=== PATIENT | male | born 1950 | race Caucasian/White ===

== ENCOUNTER 2018-09-25 11:11 | Day surgery (SDC) | payer OTHER ==
[~2018-09-25 11:11] MED LIST: Buffered Lidocaine 1% SYRIN* 1 ML/SYRINGE INTRADERM ONE; Famotidine IV* 10 MG/ML 2 ML (20 mg) IV ONE; Lactated Ringers 1000 ML Bag* 1,000 ML IV SCH
[2018-09-25] MEDS ORDERED: Famotidine IV* 10 MG/ML 2 ML (20 mg) ONE (11:29)
[2018-09-25] MEDS ORDERED: Metoprolol Tartrate IV* 1 MG/ML 5 ML VIAL ONE ×2 (12:07→12:46)
[2018-09-25] MEDS ORDERED: Midazolam* 1 MG/ML 5 ML VIAL (5 MG) ONE (12:18)
[2018-09-25] MEDS ORDERED: Propofol* 10 MG/ML 20 ML BTL ONE (12:18)
[2018-09-25] MEDS ORDERED: Lidocaine 2% MPF* 2 ML VIAL ONE (12:18)
[2018-09-25] MEDS ORDERED: Cisatracurium* 2 MG/ML MDV 5 ML ONE (12:18)
[2018-09-25] MEDS ORDERED: fentaNYL* 50 MCG/ML 2 ML VIAL (100 MCG VIAL) ONE (12:18)
[2018-09-25] MEDS ORDERED: Ondansetron INJ* 2 MG/ML VIAL ONE (12:18)
[2018-09-25] MEDS ORDERED: Dexamethasone IV* 4 MG/ML 1 ML (4 MG) ONE (12:18)
[2018-09-25] MEDS ORDERED: EPINEPHRINE 1 MG/ML 1 ML VIAL ONE (12:52)
[2018-09-25] MEDS ORDERED: Ondansetron INJ* 2 MG/ML VIAL IV PRN (13:02)
[2018-09-25] MEDS ORDERED: Naloxone* 0.4 MG/ML 1 ML VIAL IV PRN (13:02)
[2018-09-25] MEDS ORDERED: fentaNYL* 50 MCG/ML 2 ML VIAL (100 MCG VIAL) IV PRN (13:02)
[2018-09-25] MEDS ORDERED: VASOPRESSIN 20 UNITS/ML 1 ML VIAL ONE (13:28)
[2018-09-25] MEDS ORDERED: Neostigmine Methylsulfate* 1 MG/ML 10 ML VIAL (1 mg/ml) ONE (13:38)
[2018-09-25] MEDS ORDERED: Glycopyrrolate IV* 0.2 MG/ML 1 ML VIAL ONE (13:38)
--- NOTE | 2018-09-25 15:02 | OP ---
OPERATIVE REPORT: DATE OF OPERATION: 09/25/18 DATE OF : 54 SURGEON: Stevo Angeles MD SECTION REPAIRER: Dr. Salmeron; he did the FNA. ANESTHESIOLOGIST: Dr. Rosales. ANESTHESIA: General. PRE-OP DIAGNOSIS: Right neck mass. 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 OPERATIVE PROCEDURE: Direct laryngoscopy with biopsies and FNA right neck mass. ESTIMATED BLOOD LOSS: Less than 10 cc. INDICATIONS: This is a 68-year-old male who presented to the office with a right neck mass, which wa s concerning for malignancy. Prior to my evaluation, the patient had had a CT scan of the neck, whic h revealed large right neck mass and some pharyngeal asymmetry, although nothing definitive to indica te a specific source. Fiberoptic laryngoscopy in the office demonstrated fullness of the right tongu e base without ulceration. The decision was made to bring the patient to the operating room for dire ct laryngoscopy with biopsies and fine needle aspiration of the right neck mass. DESCRIPTION OF PROCEDURE: On 09/25/18, the patient was brought to the operating room. General anest hesia was induced and an oral endotracheal tube was placed utilizing the GlideScope. The table was t urned and a time-out was performed. The pathologist, Dr. Salmeron then prepped the right neck with alcohol, made 2 passes to perform fine needle aspiration. He determined that the specimen was adequ ate for diagnostic purposes. At this point, I took over. I used a combination of laryngoscopes incl uding a sliding Marcos and Brigida laryngoscope to evaluate the laryngopharynx. The only notable f eature was some fullness at the right tongue base. With manual palpation, this area was quite firm a s well. Multiple biopsies were taken of this region with an upcut forceps. There was minimal bleedi ng, which was controlled with pledgets soaked with epinephrine. After the biopsy, the patient was re turned to the care of the anesthesiologist. He was extubated and delivered to the PACU in a stable c ondition. [id number]/[facility] #: [id number]
[2018-09-25 15:13] VITALS: BP 120/98
== END 2018-09-25 15:18 | disposition home or self-care (01) ==
LOC: OR 11:11
PROVIDERS: ATTEND Otolaryngology
DX: D10.1 Benign neoplasm of tongue (principal); R22.1 Localized swelling, mass and lump, neck; C76.0 Malignant neoplasm of head, face and neck; I48.91 Unspecified atrial fibrillation; I10 Essential (primary) hypertension; F41.8 Other specified anxiety disorders
CPT/HCPCS: 10021; 88172; 88173; 88305; 88342; J1100; J2250; J2405; J2704; J2710; J3010; J3490

== ENCOUNTER 2018-11-26 16:09 | Inpatient (IN) | payer OTHER ==
--- OUTSIDE RECORDS SUMMARY | 2018-11-26 18:21 | XMS REPORT | Continuity of Care Document ---
:1950 External Reference #:[id number] Author Name Ayala Browne MD Address [address] [place] [address] Care Team Providers Name Role Phone Jeff Brody MD Care Team Information Bioinformatics Assistant Unavailable Payers Date Identification Numbers Payment Provider Subscriber Expires: 2010 Policy Number: [id number] [facility] Pal Florez PayID: [id number] [address] [place] [address] Policy Number: [id number] [facility] Pal Florez PayID: [id number] [address] [place] [address] Social History Type Date Description Comments Sex Unknown Tobacco Use Start: Unknown Patient has never smoked Smoking Status Reviewed: 11/12/18 Patient has never smoked Allergies, Adverse Reactions, Alerts Description No Known Drug Allergies Medications Active Medications SIG Qnty Indications Ordering Provider Date Diltiazem Hydrochloride Unknown ER CP24 Pradaxa take 1 capsule by Unknown 150mg Capsules mouth 2 times a day Vital Signs Date Vital Result Comment 11/12/2018 11:20am Height 71 inches 5'11" Weight 222.00 lb BP Systolic 151 mmHg BP Diastolic 96 mmHg Heart Rate 70 /min BMI (Body Mass Index) 31.0 kg/m2 Results Test Date Facility Test Result H/L Range Note Basic Metabolic Panel 11/12/2012 [facility] Sodium 134 mmol/L 133-145 Potassium 3.9 mmol/L 3.5-5.0 Chloride 103 mmol/L 101-111 Co2 Carbon Dioxide 23.0 mmol/L 22-32 Anion Gap 8.0 mmol/L 2-11 Glucose 101 mg/dL High 70-100 Blood Urea Nitrogen 9 mg/dL 6-24 Creatinine 0.90 mg/dL 0.50-1.40 BUN/Creatinine Ratio 10.0 8-20 Calcium 9.1 mg/dL 8.1-9.9 Egfr Non- 86.1 >60 Egfr 110.7 >60 1 Laboratory test finding 11/12/2012 [facility] Magnesium 2.1 mg/dL 1.7-2.6 1 Because ethnic data is not always readily available, this report includes an eGFR for both -Americans and non- Americans. The National Kidney Disease Education Program (NKDEP) does not endorse the use of the MDRD equation for patients that are not between the ages of 18 and 70, are , have extremes of body size, muscle mass, or nutritional status, or are non- or non-. According to the National Kidney Foundation, irrespective of diagnosis, the stage of the disease is based on the level of kidney function: Stage Description GFR(mL/min/1.73 m(2)) 1 Kidney damage with normal or decreased GFR 90 2 Kidney damage with mild decrease in GFR 60-89 3 Moderate decrease in GFR 30-59 4 Severe decrease in GFR 15-29 5 Kidney failure <15 (or dialysis) Procedures Date Code Description Status 11/12/2012 62304 Colonoscopy Completed 09/12/2005 [id number] Colonoscopy Completed
--- OUTSIDE RECORDS SUMMARY | 2018-11-26 18:21 | XMS REPORT | Continuity of Care Document ---
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 Onset: 09/20/2018 Localized swelling, mass and lump, neck Juan Hilliard M.D. Onset: 2018 Lymphadenopathy Juan Hilliard M.D. Onset: 03/14/2016 Paroxysmal atrial fibrillation Juan Hilliard M.D. Onset: 03/14/2016 Essential hypertension Juan Hilliard M.D. Onset: 05/07/2015 Overweight Juan Hilliard M.D. Onset: 06/09/2013 Disorder of thyroid gland Juan Hilliard M.D. Onset: 04/08/2013 Atrial fibrillation Vikram Landeros M.D. Onset: 11/20/2012 Impacted cerumen Juan Hilliard M.D. Onset: 09/30/2012 Non-suppurative otitis media Vikram Landeros M.D. Onset: 04/24/2012 Hyperlipidemia Juan Hilliard M.D. Onset: 04/02/2012 Adult health examination Juan Hilliard M.D. Onset: 04/02/2012 Headache Juan Hilliard M.D. Onset: 03/17/2011 Allergic rhinitis Juan Hilliard M.D. Onset: 11/07/2010 Benign prostatic hypertrophy without Juan Hilliard M.D. Onset: 10/12/2009 outflow obstruction Benign essential hypertension Juan Hilliard M.D. Onset: 10/12/2009 Family History Date Family Member(s) Observation Comments Father due to Cancer () - AGE 60 Mother due to Heart Disease () - AGE 80 Mother due to COPD () First Brother Smoker First Sister Colon Polyps Social History Type Date Description Comments Sex Unknown Marital Status Patient is single Living Situation Patient lives alone Diet Diet is healthy and well balanced Tobacco Use Start: Unknown Nonsmoker ETOH Use Denies alcohol use Tobacco Use Start: Unknown Patient has never smoked Smoking Status Reviewed: 11/23/18 Patient has never smoked Exercise Type/Frequency Exercises sporadically Current Allergies, Adverse Reactions, Alerts Description No Known Drug Allergies Medications Active Medications SIG Qnty Indications Ordering Provider Date Lovenox Inject One Dose 8ml I48.1 Juan Hilliard, 09/20/2018 80mg/0.8ML bid M.D. Solution Pradaxa Take 1 Capsule 180caps Juan Hilliard, 02/07/2013 150mg Capsules By Mouth Twice M.D. Daily Diltiazem HCL ER Take 1 Capsule 90caps Juan Hilliard, 01/30/2013 Coated Beads By Mouth Every M.D. 240mg Caps Day ER 24HR History Medications Trazodone HCL 1-2 tablet at 60tabs Juan Hilliard, 09/05/2018 - 50mg bedtime as needed M.D. 09/20/2018 Tablets for sleep Diltiazem HCL ER Beads 1 by mouth every 30caps Juan Hilliard, 2016 - day M.D. 11/14/2016 360mg Caps ER 24HR Diltiazem CD 1 by mouth every 90caps I48.0 Juan Hilliard, 11/14/2016 - 120mg Caps day for blood M.D. 01/30/2018 ER 24HR pressure and heart rate Diltiazem CD 1 po qd 30caps 427.31 Juan Hilliard, 01/13/2013 - 180mg Caps M.D. 01/13/2013 ER 24HR Cardizem CD 2 po qd 30caps 427.31 Juan Hilliard, 01/13/2013 - 120mg Caps ER M.D. 01/30/2013 24HR Warfarin Sodium take 1 tablet 45tabs 427.31 Juan Hilliard, 01/13/2013 - 5mg once daily or as M.D. 02/07/2013 Tablets directed Amoxicillin bid x 8 days 16caps Vikram Ch 04/24/2012 - 500mg Quan Landeros 09/30/2012 Capsules Levocetirizine take 1 tablet 30tabs Juan Hilliard, 03/17/2011 - Dihydrochloride daily prn M.D. 04/02/2012 5mg Tablets Fluticasone Propionate 1-2 sprays each 1Bottle Juan Hilliard, 2010 - nostril daily prn M.D. 04/02/2012 50mcg/Act Suspension for allergies Lisinopril Take 1 Tablet 90tabs Juan Hilliard, 04/11/2010 - 5mg Tablets Daily M.D. 11/20/2012 Cortisporin Otic Susp 1 gtt every 6 1Bpriscila murillo 11/24/2006 - hours To Tyree MirzaDChrist 10/12/2009 Trazadone 1-2 po q hs prn 30units Juan Hilliard, 08/11/2005 - 50mg for sleep M.D. 10/12/2009 Duratuss GP 1 PO Q 12 HR prn 20units Juan Hilliard, 08/09/2001 - Head Congestion M.D. 08/11/2005 Zithromax 2 Tabs Day 1 6units Juan Hilliard, 08/09/2001 - 250mg M.D. 08/11/2005 1 Tab qd Days 2 Thru 5 Fiorinal 1-2 PO Q4-6hs prn 3O Juan Hilliard, 08/09/2001 - Headache M.D. 08/11/2005 Claritin 1 po qd Samples Unknown - 10mg Tablets 03/17/2011 Diazepam 1 po qd Unknown - 5mg Tablets 11/20/2012 Aspirin 1 po qd Unknown - 81mg Tablets 04/08/2013 DR Lindsay PALMA 1 po qd 30caps Vikram J. - 120mg Caps TIMA Landeros M.D. 01/13/2013 24HR Immunizations CPT Code Status Date Vaccine Lot # [id number] Given 03/14/2016 Tdap Tetanus, W Pertussis [id number] Given 03/14/2016 Influenza Vac, Quadrivalent, Slit Virus, Im [id number] Given 05/07/2015 Influenza Vac, Quadrivalent, Slit Virus, Im [id number] Vital Signs Date Vital Result Comment 11/23/2018 9:05am BP Systolic 112 mmHg BP Diastolic 80 mmHg Heart Rate 84 /min Body Temperature 97.2 F Respiratory Rate 17 /min Height 69.75 inches 5'9.75" measured 12/14/17 Weight 215.00 lb BMI (Body Mass Index) 31.1 kg/m2 09/20/2018 4:27pm BP Systolic 120 mmHg BP Diastolic 80 mmHg Heart Rate 60 /min Body Temperature 97.9 F Respiratory Rate 16 /min Height 69.75 inches 5'9.75" measured 12/14/17 Weight 234.00 lb BMI (Body Mass Index) 33.8 kg/m2 09/05/2018 1:59pm BP Systolic 138 mmHg BP Diastolic 80 mmHg Heart Rate 78 /min Body Temperature 977.0 F Respiratory Rate 16 /min Height 69.75 inches 5'9.75" measured 12/14/17 Weight 234.25 lb BMI (Body Mass Index) 33.8 kg/m2 01/31/2018 9:12am BP Systolic 148 mmHg BP Diastolic 78 mmHg Heart Rate 84 /min Body Temperature 98.1 F Respiratory Rate 16 /min Height 69.75 inches 5'9.75" measured 12/14/17 Weight 231.38 lb BMI (Body Mass Index) 33.4 kg/m2 12/14/2017 8:17am BP Systolic 128 mmHg BP Diastolic 88 mmHg Heart Rate 72 /min Body Temperature 97.3 F Respiratory Rate 16 /min Height 69.75 inches 5'9.75" measured 12/14/17 Weight 225.25 lb BMI (Body Mass Index) 32.5 kg/m2 Right Visual Acuity Distance 20/40 Left Visual Acuity Distance 20/25 08/14/2017 2:00pm BP Systolic 144 mmHg BP Diastolic 84 mmHg Heart Rate 96 /min Body Temperature 96.8 F Respiratory Rate 16 /min Height 69.75 inches 5'9.75" meassured 03/14/16 Weight 228.25 lb BMI (Body Mass Index) 33.0 kg/m2 06/23/2017 9:10am BP Systolic 140 mmHg BP Diastolic 82 mmHg Heart Rate 84 /min Body Temperature 98.3 F Respiratory Rate 16 /min Height 69.75 inches 5'9.75" meassured 03/14/16 Weight 226.00 lb BMI (Body Mass Index) 32.7 kg/m2 03/12/2017 2:39pm BP Systolic 148 mmHg BP Diastolic 88 mmHg Heart Rate 78 /min Body Temperature 97.9 F Respiratory Rate 16 /min Height 69.75 inches 5'9.75" meassured 03/14/16 Weight 226.38 lb BMI (Body Mass Index) 32.7 kg/m2 12/15/2016 9:20am BP Systolic 136 mmHg BP Diastolic 76 mmHg Heart Rate 84 /min Body Temperature 97.5 F Respiratory Rate 16 /min Height 69.75 inches 5'9.75" meassured 03/14/16 Weight 222.12 lb BMI (Body Mass Index) 32.1 kg/m2 11/14/2016 3:03pm BP Systolic 162 mmHg BP Diastolic 88 mmHg Heart Rate 110 /min irr Body Temperature 97.5 F Height 69.75 inches 5'9.75" meassured 03/14/16 Weight 223.00 lb BMI (Body Mass Index) 32.2 kg/m2 07/29/2016 11:22am BP Systolic 136 mmHg BP Diastolic 80 mmHg Heart Rate 72 /min Body Temperature 97.9 F Respiratory Rate 16 /min Height 69.75 inches 5'9.75" meassured 03/14/16 Weight 223.50 lb BMI (Body Mass Index) 32.3 kg/m2 03/14/2016 11:38am BP Systolic 148 mmHg BP Diastolic 76 mmHg Heart Rate 74 /min Body Temperature 97.6 F Respiratory Rate 16 /min Height 69.75 inches 5'9.75" meassured 03/14/16 Weight 214.25 lb BMI (Body Mass Index) 31.0 kg/m2 Right Visual Acuity Distance 20/25 Left Visual Acuity Distance 20/25 11/08/2015 4:03pm BP Systolic 130 mmHg BP Diastolic 70 mmHg Heart Rate 80 /min Body Temperature 98.0 F Respiratory Rate 12 /min Height 70 inches 5'10" measured 10/29/14 Weight 208.00 lb BMI (Body Mass Index) 29.8 kg/m2 05/07/2015 8:02am BP Systolic 128 mmHg BP Diastolic 80 mmHg Heart Rate 66 /min Body Temperature 96.4 F Respiratory Rate 16 /min Height 70 inches 5'10" measured 10/29/14 Weight 218.38 lb BMI (Body Mass Index) 31.3 kg/m2 10/29/2014 3:37pm BP Systolic 140 mmHg BP Diastolic 80 mmHg Heart Rate 84 /min Body Temperature 98.8 F Respiratory Rate 16 /min Height 70 inches 5'10" measured 10/29/14 Weight 209.25 lb BMI (Body Mass Index) 30.0 kg/m2 Right Visual Acuity Distance 20/200 Left Visual Acuity Distance 20/30 12/08/2013 8:08am BP Systolic 130 mmHg BP Diastolic 80 mmHg Heart Rate 68 /min Body Temperature 96.4 F Respiratory Rate 16 /min Height 70.5 inches 5'10.50" Weight 217.38 lb BMI (Body Mass Index) 30.7 kg/m2 09/08/2013 8:36am BP Systolic 144 mmHg BP Diastolic 82 mmHg Heart Rate 72 /min Body Temperature 97.7 F Respiratory Rate 16 /min Height 70.5 inches 5'10.50" Weight 220.00 lb BMI (Body Mass Index) 31.1 kg/m2 06/09/2013 8:06am BP Systolic 148 mmHg BP Diastolic 84 mmHg Heart Rate 68 /min Body Temperature 97.5 F Respiratory Rate 16 /min Height 70.5 inches 5'10.50" Weight 224.12 lb BMI (Body Mass Index) 31.7 kg/m2 04/08/2013 12:09pm BP Systolic 140 mmHg BP Diastolic 78 mmHg Heart Rate 72 /min Body Temperature 97.8 F Respiratory Rate 14 /min Height 70.5 inches 5'10.50" Weight 221.50 lb BMI (Body Mass Index) 31.3 kg/m2 Right Visual Acuity Distance 20/40 Left Visual Acuity Distance 20/40 01/13/2013 7:54am BP Systolic 108 mmHg BP Diastolic 72 mmHg Heart Rate 72 /min Body Temperature 97.6 F Respiratory Rate 16 /min Height 70.5 inches 5'10.50" Weight 223.38 lb BMI (Body Mass Index) 31.6 kg/m2 11/20/2012 9:20am BP Systolic 138 mmHg BP Diastolic 90 mmHg Heart Rate 66 /min Body Temperature 97.1 F Respiratory Rate 16 /min Height 70.5 inches 5'10.50" Weight 220.00 lb BMI (Body Mass Index) 31.1 kg/m2 10/07/2012 11:59am BP Systolic 110 mmHg BP Diastolic 70 mmHg Heart Rate 80 /min Body Temperature 98.1 F Respiratory Rate 17 /min Height 70.5 inches 5'10.50" Weight 222.00 lb BMI (Body Mass Index) 31.4 kg/m2 09/30/2012 8:01am BP Systolic 128 mmHg BP Diastolic 82 mmHg Heart Rate 88 /min Body Temperature 96.0 F Height 70.5 inches 5'10.50" Weight 225.00 lb BMI (Body Mass Index) 31.8 kg/m2 04/24/2012 1:04pm BP Systolic 140 mmHg BP Diastolic 90 mmHg Heart Rate 76 /min Body Temperature 95.0 F Height 70.5 inches 5'10.50" Weight 219.00 lb BMI (Body Mass Index) 31.0 kg/m2 04/02/2012 10:23am BP Systolic 160 mmHg BP Diastolic 86 mmHg Heart Rate 76 /min Body Temperature 96.3 F Height 70.5 inches 5'10.50" Weight 219.00 lb BMI (Body Mass Index) 31.0 kg/m2 07/21/2011 8:09am BP Systolic 150 mmHg BP Diastolic 100 mmHg Heart Rate 80 /min Height 70.5 inches 5'10.50" Weight 220.00 lb BMI (Body Mass Index) 31.1 kg/m2 03/17/2011 8:09am BP Systolic 142 mmHg BP Diastolic 98 mmHg Heart Rate 72 /min Body Temperature 97.1 F Height 70.5 inches 5'10.50" Weight 222.00 lb BMI (Body Mass Index) 31.4 kg/m2 11/07/2010 8:39am BP Systolic 110 mmHg BP Diastolic 80 mmHg Heart Rate 76 /min Height 70.5 inches 5'10.50" Weight 215.00 lb BMI (Body Mass Index) 30.4 kg/m2 10/20/2010 10:29am BP Systolic 120 mmHg BP Diastolic 80 mmHg Heart Rate 84 /min Body Temperature 98.0 F Height 70.5 inches 5'10.50" Weight 218.00 lb BMI (Body Mass Index) 30.8 kg/m2 07/15/2010 8:13am BP Systolic 130 mmHg BP Diastolic 90 mmHg Heart Rate 68 /min Respiratory Rate 15 /min Height 70.5 inches 5'10.50" Weight 216.00 lb BMI (Body Mass Index) 30.6 kg/m2 04/11/2010 8:16am BP Systolic 158 mmHg BP Diastolic 90 mmHg Heart Rate 72 /min Height 70.5 inches 5'10.50" Weight 216.00 lb BMI (Body Mass Index) 30.6 kg/m2 01/10/2010 8:33am BP Systolic 150 mmHg BP Diastolic 92 mmHg Heart Rate 80 /min Body Temperature 97.6 F Height 70.5 inches 5'10.50" Weight 224.00 lb BMI (Body Mass Index) 31.7 kg/m2 10/12/2009 7:13pm BP Systolic 180 mmHg BP Diastolic 110 mmHg Heart Rate 84 /min Body Temperature 98.0 F Height 70.5 inches 5'10.50" Weight 227.00 lb BMI (Body Mass Index) 32.1 kg/m2 11/24/2006 10:16am BP Systolic 154 mmHg BP Diastolic 84 mmHg Heart Rate 78 /min Body Temperature 98.6 F Height 70.5 inches 5'10.50" Weight 226.00 lb BMI (Body Mass Index) 32.0 kg/m2 10/06/2005 4:47pm BP Systolic 160 mmHg BP Diastolic 92 mmHg Heart Rate 96 /min Height 70.5 inches 5'10.50" Weight 219.00 lb BMI (Body Mass Index) 31.0 kg/m2 08/11/2005 3:20pm BP Systolic 168 mmHg BP Diastolic 100 mmHg Heart Rate 88 /min Respiratory Rate 20 /min Height 70.5 inches 5'10.50" Weight 217.00 lb BMI (Body Mass Index) 30.7 kg/m2 06/05/2005 1:23pm BP Systolic 132 mmHg BP Diastolic 88 mmHg Heart Rate 80 /min Respiratory Rate 16 /min Height 70.5 inches 5'10.50" Weight 218.00 lb BMI (Body Mass Index) 30.8 kg/m2 08/09/2001 4:05pm BP Systolic 144 mmHg BP Diastolic 72 mmHg Body Temperature 99.6 F Height 70.5 inches 5'10.50" Weight 219.00 lb BMI (Body Mass Index) 31.4 kg/m2 09/13/1999 10:32am BP Systolic 134 mmHg BP Diastolic 80 mmHg Heart Rate 72 /min Reg Body Temperature 96.9 F Height 70.5 inches 5'10.50" Weight 214.00 lb BMI (Body Mass Index) 30.7 kg/m2 05/31/1999 9:39am BP Systolic 130 mmHg LA SM Cuff BP Diastolic 92 mmHg LA SM Cuff Height 70.5 inches 5'10.50" Weight 220.00 lb BMI (Body Mass Index) 31.6 kg/m2 Results Test Date Facility Test Result H/L Range Note CBC Auto Diff 11/11/2018 [facility] White Blood Count 8.8 10^3/uL N 3.5-10.8 Red Blood Count 4.23 10^6/uL N 4.18-5.48 Hemoglobin 14.2 g/dL N 14.0-18.0 Hematocrit 40 % Low 42-52 Mean Corpuscular Volume 94 fL N 80-94 Mean Corpuscular Hemoglobin 34 pg High 27-31 Mean Corpuscular HGB Conc 36 g/dL N 31-36 Red Cell Distribution Width 13 % N 10-15 Platelet Count 277 10^3/uL N 150-450 Mean Platelet Volume 8.2 fL N 7.4-10.4 Abs Neutrophils 6.9 10^3/uL N 1.5-7.7 Abs Lymphocytes 0.8 10^3/uL Low 1.0-4.8 Abs Monocytes 0.6 10^3/uL N 0-0.8 Abs Eosinophils 0.5 10^3/uL N 0-0.6 Abs Basophils 0.1 10^3/uL N 0-0.2 Abs Nucleated RBC 0.0 10^3/uL Granulocyte % 77.9 % Lymphocyte % 9.0 % Monocyte % 7.2 % Eosinophil % 5.1 % Basophil % 0.8 % Nucleated Red Blood Cells % 0.2 Comp Metabolic Panel 11/11/2018 [facility] Sodium 138 mmol/L N 135-145 Potassium 4.1 mmol/L N 3.5-5.0 Chloride 103 mmol/L N 101-111 Co2 Carbon Dioxide 26 mmol/L N 22-32 Anion Gap 9 mmol/L N 2-11 Glucose 140 mg/dL High 70-100 Blood Urea Nitrogen 12 mg/dL N 6-24 Creatinine 0.91 mg/dL N 0.67-1.17 BUN/Creatinine Ratio 13.2 N 8-20 Calcium 9.4 mg/dL N 8.6-10.3 Total Protein 7.1 g/dL N 6.4-8.9 Albumin 4.2 g/dL N 3.2-5.2 Globulin 2.9 g/dL N 2-4 Albumin/Globulin Ratio 1.4 N 1-3 Total Bilirubin 0.50 mg/dL N 0.2-1.0 Alkaline Phosphatase 84 U/L N 34-104 Alt 21 U/L N 7-52 Ast 16 U/L N 13-39 Egfr Non- 83.4 >60 Egfr 100.9 >60 1 Laboratory test 11/11/2018 [facility] Magnesium 2.0 mg/dL N 1.9-2.7 finding Laboratory test 10/15/2018 [facility] Point of Care 134 mg/dL High 70-100 2 finding Glucose Comprehensive 09/05/2018 [facility]ma) Sodium 142 mEq/L 134-149 Metabolic Prof Potassium 4.2 mEq/L 3.6-5.5 Chloride 103 mEq/L 94-112 Carbon Dioxide 25 mEq/L 21-32 Glucose 128 mg/dL High 70-105 BUN 16 mg/dL 6-26 Creatinine 1.0 mg/dL 0.6-1.4 BUN/Creat Ratio 16.0 CALC 8.0-36.0 Calcium 9.6 mg/dL 8.6-10.2 Total Protein 7.5 g/dL 6.4-8.3 Albumin 4.9 g/dL 3.8-5.5 Globulin 2.6 g/dL 2.0-4.8 A/G Ratio 1.9 CALC 0.6-2.3 Alk. Phosphatase 79 U/L 22-95 Alt (SGPT) 36 U/L High 7-35 Ast (Sgot) 20 U/L 5-34 Total Bilirubin 0.3 mg/dL 0.2-1.3 GFR Non- >60 ml/min/1.73m^ >=60 GFR >60 ml/min/1.73m^ >=60 CBC Electronic a 09/05/2018 [facility](a) WBC 8.2 x10^3/UL 4.0- 10.0 RBC 4.69 x10^6/UL 3.93-6.00 HGB 15.6 g/dL 12.0-17.0 HCT 45 % 35-50 MCV 95.7 fL High 80.0-95.0 MCH 33.3 pg High 25.6-32.2 MCHC 34.7 g/dL 32.2-36.0 RDW-CV 12.6 % 11.6-14.4 PLT 316 x10^3/UL 163-400 MPV 10.3 fL 9.4-12.4 Rody# 5.99 x10^3/UL 1.56-6.13 Lymph# 1.25 x10^3/UL 1.18-3.74 Craven# 0.58 x10^3/UL 0.24-0.82 Eos # 0.3 x10^3/UL 0.0-0.5 Baso # 0.06 x10^3/UL 0.01-0.08 Rody% 73.3 % High 34.0-70.0 Lymph % 15.3 % Low 20.0-52.0 Craven% 7.1 % 5.0-12.0 Eos% 3.5 % 0.7-7.0 Baso% 0.7 % 0.1-1.2 Laboratory test 09/05/2018 [facility] C Reactive Protein 6.98 mg/L N <8.01 3 finding Ua - Non Micro 12/14/2017 [facility] Appearance CLEAR (a) (607)- - Color ORANGE Glucose, Urine ([facility]/CTX) NEG Bilirubin ICTO:NEG Ketones 15mg/dL # SP Grav 1.025 Blood NEG PH 5.5 Protein SSA:NEG Urobil 0.2 Nitrite NEG Leukocytes ([facility]ma/[facility]) NEG Laboratory test finding 12/12/2017 [facility]) PSA 0.3 ng/mL 0.0 -4.0 Comprehensive Metabolic 12/12/2017 [facility](a) Sodium 136 mEq/L 134-149 Prof Potassium 4.7 mEq/L 3.6-5.5 Chloride 102 mEq/L 94-112 Carbon Dioxide 24 mEq/L 21-32 Glucose 124 mg/dL High 70-105 BUN 11 mg/dL 6-26 Creatinine 1.0 mg/dL 0.6-1.4 BUN/Creat Ratio 11.0 CALC 8.0-36.0 Calcium 9.2 mg/dL 8.6-10.2 Total Protein 7.1 g/dL 6.4-8.3 Albumin 4.8 g/dL 3.8-5.5 Globulin 2.3 g/dL 2.0-4.8 A/G Ratio 2.1 CALC 0.6-2.3 Alk. Phosphatase 56 U/L 22-95 Alt (SGPT) 27 U/L 7-35 Ast (Sgot) 24 U/L 5-34 Total Bilirubin 0.7 mg/dL 0.2-1.3 GFR Non- >60 ml/min/1.73m^ >=60 GFR >60 ml/min/1.73m^ >=60 Lipid Profile 12/12/2017 [facility] Kumar([facility]) Cholesterol 189 mg/dL 120- 200 Triglycerides 103 mg/dL 30-200 HDL Cholesterol 59 mg/dL 30-70 LDL (Calculated) 109 CALC 0-129 VLDL Cholesterol 21 mg/dL 0-50 HDL Risk Factor 3.2 CALC 0.0-4.4 CBC Electronic a 12/12/2017 [facility] Kumar([facility]) WBC 7.8 x10^3/UL 4.0- 10.0 RBC 4.47 x10^6/UL 3.93-6.00 HGB 14.9 g/dL 12.0-17.0 HCT 43 % 35-50 MCV 96.0 fL High 80.0-95.0 MCH 33.3 pg High 25.6-32.2 MCHC 34.7 g/dL 32.2-36.0 RDW-CV 12.5 % 11.6-14.4 PLT 259 x10^3/UL 163-400 MPV 11.0 fL 9.4-12.4 Rody# 4.99 x10^3/UL 1.56-6.13 Lymph# 1.71 x10^3/UL 1.18-3.74 Craven# 0.61 x10^3/UL 0.24-0.82 Eos # 0.4 x10^3/UL 0.0-0.5 Baso # 0.06 x10^3/UL 0.01-0.08 Rody% 64.0 % 34.0-70.0 Lymph % 21.9 % 20.0-52.0 Craven% 7.8 % 5.0-12.0 Eos% 5.4 % 0.7-7.0 Baso% 0.8 % 0.1-1.2 CBC Electronic ([facility]) 03/12/2017 [facility] WBC 8.0 3.6-9.6 (607)- - RBC 4.40 3.90-5.70 Hemoglobin ([facility]ma/[facility]/CTX) 14.8 g/dL 12.1 - 17.2 Hematocrit (a/CMC/CTX) 42.8 % 36.1 - 50.3 Platelets 241 10^3/ul 150-400 Lymph% 25.1 % 17.0-48.0 Mixed% 5.0 Neutrophils % 69.9 Mean Corpuscular Vol 97 82.2-97.4 Mean Corpuscular Hemoglobin 33.8 High 27.6-33.3 Mean Corpuscular Hemo Concen 34.7 32.0-36.0 RDW 13.7 11.6-13.7 Mean Platelet Volume 7.5 5.5-11.0 Comprehensive Metabolic 03/12/2017 [facility] Kumar([facility]) Sodium 142 mEq/L 134-149 Prof Potassium 4.3 mEq/L 3.6-5.5 Chloride 107 mEq/L 94-112 Carbon Dioxide 24 mEq/L 21-32 Glucose 111 mg/dL High 70-105 BUN 11 mg/dL 6-26 Creatinine 1.0 mg/dL 0.6-1.4 BUN/Creat Ratio 11.0 CALC 8.0-36.0 Calcium 9.1 mg/dL 8.6-10.2 Total Protein 6.9 g/dL 6.4-8.3 Albumin 4.5 g/dL 3.8-5.5 Globulin 2.4 g/dL 2.0-4.8 A/G Ratio 1.9 CALC 0.6-2.3 Alk. Phosphatase 57 U/L 22-95 Alt (SGPT) 18 U/L 7-35 Ast (Sgot) 18 U/L 5-34 Total Bilirubin 0.5 mg/dL 0.2-1.3 GFR Non- >60 ml/min/1.73m^ >=60 GFR >60 ml/min/1.73m^ >=60 Ua - Non Micro (Fma) 03/14/2016 [facility] Appearance clear (607)- - Color yellow Glucose, Urine ([facility]/CTX) neg Bilirubin neg Ketones trace SP Grav 1.020 Blood neg PH 5.5 Protein neg Urobil 0.2 Nitrite neg Leukocytes ([facility]) neg Laboratory test finding 10/27/2015 [facility]) PSA 0.3 ng/mL 0.0 -4.0 4 Comprehensive Metabolic 10/27/2015 [facility]) Sodium 140 mEq/L 134-149 Prof Potassium 5.2 mEq/L 3.6-5.5 Chloride 100 mEq/L 94-112 Carbon Dioxide 29 mEq/L 21-32 Glucose 120 mg/dL High 70-105 5 BUN 11 mg/dL 6-26 Creatinine 0.9 mg/dL 0.6-1.4 BUN/Creat Ratio 12.2 CALC 8.0-36.0 Calcium 9.3 mg/dL 8.6-10.2 Total Protein 6.9 g/dL 6.4-8.3 Albumin 4.6 g/dL 3.8-5.5 Globulin 2.3 g/dL 2.0-4.8 A/G Ratio 2.0 CALC 0.6-2.3 Alk. Phosphatase 61 U/L 22-95 Alt (SGPT) 22 U/L 7-35 Ast (Sgot) 20 U/L 5-34 Total Bilirubin 0.6 mg/dL 0.2-1.3 GFR Non- >60 ml/min/1.73m^ >=60 GFR >60 ml/min/1.73m^ >=60 Lipid Profile 10/27/2015 [facility]) Cholesterol 195 mg/dL 120- 200 Triglycerides 63 mg/dL 30-200 HDL Cholesterol 57 mg/dL 30-70 LDL (Calculated) 125 CALC 0-129 VLDL Cholesterol 13 mg/dL 0-50 HDL Risk Factor 3.4 CALC 0.0-4.4 Complete Blood Count 10/27/2015 [facility]) WBC 7.3 x10^3/UL 3.6 -9.6 RBC 4.76 x10^6/UL 3.90-5.70 HGB 15.9 g/dL 12.1-17.2 HCT 46 % 36-50 MCV 97.0 fL 82.2-97.4 MCH 33.3 pg 27.6-33.3 MCHC 34.3 g/dL 33.0-35.5 RDW 12.7 % 11.6-13.7 PLT 282 x10^3/UL 150-400 MPV 8.3 fL 7.4-10.4 Gran # 5.0 x10^3/UL 1.5-7.2 Lymph# 2.0 x10^3/UL 0.7-4.9 Craven# 0.3 x10^3/UL 0.1-0.9 Gran % 67.1 % 42.2-75.2 Lymph % 27.7 % 20.5-51.1 Craven% 5.2 % 1.7-9.3 Ua - Non Micro (Fma) 10/29/2014 [facility] Medicine Appearance clear (607)- - Color yellow Glucose, Urine ([facility]ma/[facility]/CTX) - Bilirubin - Ketones - SP Grav 1.015 Blood - PH 7.5 Protein - Urobil 1.0 Nitrite - Leukocytes (a/[facility]) - Laboratory test finding 10/29/2014 [facility]) TSH 3.67 mIU/L 0.50-6.00 PSA 0.3 ng/mL 0.0-4.0 Free T4 0.89 ng/dL 0.75-1.54 Comprehensive Metabolic 10/19/2014 [facility]) Sodium 138 mEq/L 134-149 Prof Potassium 4.8 mEq/L 3.6-5.5 Chloride 97 mEq/L 94-112 Carbon Dioxide 26 mEq/L 21-32 Glucose 117 mg/dL High 70-105 6 BUN 14 mg/dL 6-26 Creatinine 0.9 mg/dL 0.6-1.4 BUN/Creat Ratio 15.6 CALC 8.0-36.0 Calcium 10.1 mg/dL 8.6-10.2 Total Protein 7.5 g/dL 6.4-8.3 Albumin 4.8 g/dL 3.8-5.5 Globulin 2.7 g/dL 2.0-4.8 A/G Ratio 1.8 CALC 0.6-2.3 Alk. Phosphatase 60 U/L 22-95 Alt (SGPT) 15 U/L 7-35 Ast (Sgot) 17 U/L 5-34 Total Bilirubin 0.5 mg/dL 0.2-1.3 Lipid Profile 10/19/2014 [facility](a) Cholesterol 182 mg/dL 120- 200 Triglycerides 118 mg/dL 30-200 HDL Cholesterol 53 mg/dL 30-70 LDL (Calculated) 105 CALC 0-129 VLDL Cholesterol 24 mg/dL 0-50 HDL Risk Factor 3.4 CALC 0.0-4.4 Complete Blood Count 10/19/2014 Oneil Kumar(a) WBC 10.9 x10^3/UL High 3.6-9.6 7 RBC 4.53 x10^6/UL 3.90-5.70 HGB 14.8 g/dL 12.1-17.2 HCT 44 % 36-50 MCV 98.0 fL High 82.2-97.4 MCH 32.6 pg 27.6-33.3 MCHC 33.3 g/dL 33.0-35.5 RDW 13.0 % 11.6-13.7 PLT 264 x10^3/UL 150-400 MPV 7.9 fL 7.4-10.4 Gran # 7.7 x10^3/UL High 1.5-7.2 Lymph# 2.6 x10^3/UL 0.7-4.9 Craven# 0.6 x10^3/UL 0.1-0.9 Gran % 69.3 % 42.2-75.2 Lymph % 24.4 % 20.5-51.1 Craven% 6.3 % 1.7-9.3 Ua - Non Micro (Fma) 04/08/2013 Family Medicine Appearance clear (607)- - Color yellow Glucose, Urine (Fma/CMC/CTX) - Bilirubin - Ketones - SP Grav 1.020 Blood - PH 5.5 Protein - Urobil 0.2 Nitrite - Leukocytes (Fma/CMC/Centrex) - Laboratory test finding 04/08/2013 Oneil Kumar(a) PSA 0.20 ng/mL 0.00-4.00 TSH 5.18 mIU/L 0.50-6.00 Free T4 0.87 ng/dL 0.75-1.54 Comprehensive Metabolic 03/21/2013 [facility]) Albumin 4.8 g/dL 3.8-5.5 Prof Alk. Phos. 52 U/L 22-95 Alt (SGPT) 23 U/L 10-40 Ast (Sgot) 21 U/L 5-34 BUN 14 mg/dL 6-26 Calcium 9.1 mg/dL 8.6-10.2 Chloride 95 mEq/L 94-112 Creatinine 1.1 mg/dL 0.6-1.4 Carbon Dioxide 26 mEq/L 21-32 Glucose 113 mg/dL High 70-105 8 Sodium 138 mEq/L 134-149 Total Bilirubin 0.5 mg/dL 0.2-1.3 Total Protein 6.9 g/dL 6.3-8.1 Potassium 4.5 mEq/L 3.6-5.5 Globulin 2.1 g/dL 2.0-4.8 A/G Ratio 2.3 Calc 0.6-2.3 BUN/Creat Ratio 12.8 Calc 8.0-36.0 Lipid Profile 03/21/2013 [facility] St[facility]) Cholesterol 186 mg/dL 120- 200 HDL 67 mg/dL 30-70 Triglycerides 118 mg/dL 30-200 HDL Risk Factor 2.8 CALC 0.0-4.4 LDL (Calculated) 95 CALC 0-129 VLDL (Calculated) 24 mg/dL 0-50 CBC Electronic ([facility]) 03/21/2013 [facility] Medicine WBC 8.1 3.6-9.6 (607)- - RBC 4.87 3.90-5.70 Hemoglobin (Fma/CMC/CTX) 15.9 g/dL 12.1 - 17.2 Hematocrit (Fma/CMC/CTX) 47.7 % 36.1 - 50.3 Platelets 285 10^3/ul 150-400 Lymph% 33.3 20.5-51.1 Mixed% 4.9 Neutrophils % 61.8 Mean Corpuscular Vol 98 High 82.2-97.4 Mean Corpuscular Hemoglobin 32.7 27.6-33.3 Mean Corpuscular Hemo Concen 33.4 32.0-36.0 RDW 12.2 11.6-13.7 Mean Platelet Volume 7.4 6.5-11.0 Basic Metabolic Panel 02/12/2013 [facility] Sodium 137 mmol/L 133-145 Potassium 4.5 mmol/L 3.5-5.0 Chloride 103 mmol/L 101-111 Co2 Carbon Dioxide 27.0 mmol/L 22-32 Anion Gap 7.0 mmol/L 2-11 Glucose 108 mg/dL High 70-100 Blood Urea Nitrogen 13 mg/dL 6-24 Creatinine 1.10 mg/dL 0.50-1.40 BUN/Creatinine Ratio 11.8 8-20 Calcium 9.4 mg/dL 8.1-9.9 Egfr Non- 68.3 >60 Egfr 87.8 >60 9 Urinalysis 02/04/2013 [facility] Urine Color Yellow Urine Appearance Clear Urine Specific [place] 1.007 Low 1.010-1.030 Urine Esterase Negative Negative Urine Nitrate Negative Negative Urine Urobilinogen Negative E.U./dL Negative Urine Protein Negative mg/dL Negative Urine pH 5.5 5-9 Urine Blood Negative Negative Urine Ketones Negative mg/dL Negative Urine Bilirubin Negative Negative Urine Glucose Negative mg/dL Negative Urine Drug SCR ED 02/04/2013 [facility] Amphetamine Ur Screen None Detected None Detect & [facility] Barbiturates Urine Screen None Detected None Detect Benzodiazepine Urine Screen None Detected None Detect Urine Cannabinoids Screen None Detected None Detect Urine Cocaine Screen None Detected None Detect Urine Opiates Screen None Detected None Detect Urine Phencyclidine Screen None Detected None Detect 10 Comp Metabolic Panel 02/03/2013 [facility] Sodium 135 mmol/L 133-145 Potassium 3.4 mmol/L Low 3.5-5.0 Chloride 101 mmol/L 101-111 Co2 Carbon Dioxide 26.0 mmol/L 22-32 Anion Gap 8.0 mmol/L 2-11 Glucose 110 mg/dL High 70-100 Blood Urea Nitrogen 9 mg/dL 6-24 Creatinine 0.90 mg/dL 0.50-1.40 BUN/Creatinine Ratio 10.0 8-20 Calcium 8.5 mg/dL 8.1-9.9 Total Protein 6.3 g/dL 6.2-8.1 Albumin 4.1 g/dL 3.2-5.2 Globulin 2.2 g/dL 2-4 Albumin/Globulin Ratio 1.9 1-3 Total Bilirubin 0.6 mg/dL 0.4-1.5 Alkaline Phosphatase 49 U/L 30-110 Alt 29 U/L 14-54 Ast 23 U/L 12-42 Egfr Non- 86.1 >60 Egfr 110.7 >60 11 Laboratory test finding 02/03/2013 [facility] Acetaminophen < 10 g/mL Low 10- 30 12 Alcohol 286.1 mg/dL High Less Than 10 13 Salicylate < 4.0 Less Than 30 TSH (Thyroid Stimulating Horm) 2.88 miu/mL 0.34-5.60 CBC Auto Diff 02/03/2013 [facility] White Blood Count 5.8 10^3/uL 4.8-10.8 Red Blood Count 4.32 10^6/uL 4.0-5.4 Hemoglobin 14.1 g/dL 14.0-18.0 Hematocrit 42 % 42-52 Mean Corpuscular Volume 97 fL High 80-94 Mean Corpuscular Hemoglobin 33 pg High 27-31 Mean Corpuscular HGB Conc 34 g/dL 31-36 Red Cell Distribution Width 13 % 10.5-15 Platelet Count 223 10^3/uL 150-450 Mean Platelet Volume 8 um3 7.4-10.4 Abs Neutrophils 3.6 10^3/uL 1.5-7.7 Abs Lymphocytes 1.8 10^3/uL 1.0-4.8 Abs Monocytes 0.3 10^3/uL 0-0.8 Abs Eosinophils 0.1 10^3/uL 0-0.6 Abs Basophils 0 10^3/uL 0-0.2 Abs Nucleated RBC 0 10^3/uL Granulocyte % 62.1 % 38-83 Lymphocyte % 30.3 % 25-47 Monocyte % 5.0 % 1-9 Eosinophil % 2.0 % 0-6 Basophil % 0.6 % 0-2 Nucleated Red Blood Cells % 0 Laboratory test finding 01/30/2013 [facility] ([facility]) 2.8 2-3 (607)- - Laboratory test finding 01/25/2013 [facility] ([facility]) 2.5 2.0- 3.0 (607)- - Laboratory test finding 01/21/2013 [facility] ([facility]) 1.9 Low 2-3 (607)- - Laboratory test finding 01/18/2013 [facility] ([facility]) 1.5 Low 2-3 (607)- - Laboratory test finding 01/16/2013 [facility] Inr (a) 1.1 Low 2.0- 3.0 (607)- - Laboratory test finding 01/13/2013 [facility] Inr (a) 1.0 0.9- 1.1 (607)- - CBC Electronic ([facility]) 01/13/2013 [facility] WBC 7.4 3.6-9.6 (607)- - RBC 4.82 3.90-5.70 Hemoglobin (Fma/CMC/CTX) 15.9 g/dL 12.1 - 17.2 Hematocrit (Fma/CMC/CTX) 47.0 % 36.1 - 50.3 Platelets 257 10^3/ul 150-400 Lymph% 26.5 20.5-51.1 Mixed% 5.2 Neutrophils % 68.3 Mean Corpuscular Vol 98 High 82.2-97.4 Mean Corpuscular Hemoglobin 32.9 27.6-33.3 Mean Corpuscular Hemo Concen 33.7 32.0-36.0 RDW 11.5 Low 11.6-13.7 Mean Platelet Volume 7.7 6.5-11.0 Basic Metabolic Profile 01/13/2013 [facility]) BUN 15 mg/dL 6- 26 Calcium 9.7 mg/dL 8.6-10.2 Chloride 101 mEq/L 94-112 Creatinine 1.1 mg/dL 0.6-1.4 Carbon Dioxide 27 mEq/L 21-32 Glucose 154 mg/dL High 70-105 Sodium 134 mEq/L 134-149 Potassium 4.4 mEq/L 3.6-5.5 BUN/Creat Ratio 12.8 Calc 8.0-36.0 Laboratory test 01/13/2013 [facility]) Free T4 0.74 ng/dL Low 0.75-1.54 14 finding TSH 4.05 mIU/L 0.50-6.00 Basic Metabolic Panel 11/12/2012 [facility] Sodium 134 mmol/L 133-145 Potassium 3.9 mmol/L 3.5-5.0 Chloride 103 mmol/L 101-111 Co2 Carbon Dioxide 23.0 mmol/L 22-32 Anion Gap 8.0 mmol/L 2-11 Glucose 101 mg/dL High 70-100 Blood Urea Nitrogen 9 mg/dL 6-24 Creatinine 0.90 mg/dL 0.50-1.40 BUN/Creatinine Ratio 10.0 8-20 Calcium 9.1 mg/dL 8.1-9.9 Egfr Non- 86.1 >60 Egfr 110.7 >60 15 Laboratory test finding 11/12/2012 [facility] Magnesium 2.1 mg/dL 1.7-2.6 Ua - Non Micro (Fma) 04/02/2012 [facility] Medicine Appearance clear (607)- - Color yellow Glucose, Urine (Fma/[facility]/CTX) - Bilirubin - Ketones - SP Grav 1.010 Blood - PH 6.0 Protein - Urobil 0.2 Nitrite - Leukocytes (Fma/[facility]) - Comprehensive Metabolic 04/02/2012 [facility](a) Albumin 5.1 g/dL 3.8-5.5 Prof Alk. Phos. 42 U/L 22-95 Alt (SGPT) 22 U/L 10-40 Ast (Sgot) 21 U/L 5-34 BUN 13 mg/dL 6-26 Calcium 8.9 mg/dL 8.6-10.2 Chloride 97 mEq/L 94-112 Creatinine 1.0 mg/dL 0.6-1.4 Carbon Dioxide 27 mEq/L 21-32 Glucose 106 mg/dL High 70-105 16 Sodium 137 mEq/L 134-149 Total Bilirubin 0.6 mg/dL 0.2-1.3 Total Protein 7.0 g/dL 6.3-8.1 Potassium 4.6 mEq/L 3.6-5.5 Globulin 1.9 g/dL Low 2.0-4.8 A/G Ratio 2.6 Calc High 0.6-2.2 BUN/Creat Ratio 12.5 Calc 8.0-36.0 Lipid Profile 04/02/2012 [facility](fma) Cholesterol 206 mg/dL High 120-200 HDL 46 mg/dL 30-70 Triglycerides 126 mg/dL 30-200 HDL Risk Factor 4.5 CALC High 0.0-4.4 LDL (Calculated) 135 CALC High 0-129 VLDL (Calculated) 25 mg/dL 0-50 Laboratory test 04/02/2012 [facility](fma) PSA 0.20 ng/mL 0.00-4.00 finding Laboratory test 04/11/2010 [facility] Hemoglobin A1c 5.5 % 4.1-5.7 finding (607)- - (Fma/CMC,CX) Glucose, Serum (Fma/CMC/CTX) 116 mg/dL High 70-105 Comprehensive Metabolic 10/21/2009 [facility] Kumar([facility]) Albumin 4.5 g/dL 3.8-5.5 Prof Alk. Phos. 60 U/L 22-95 Alt (SGPT) 22 U/L 10-40 Ast (Sgot) 19 U/L 5-34 BUN 11 mg/dL 6-26 Calcium 9.6 mg/dL 8.6-10.2 Chloride 100 mEq/L 94-112 Creatinine 1.2 mg/dL 0.6-1.4 Carbon Dioxide 26 mEq/L 21-32 Glucose 118 mg/dL High 70-105 17 Sodium 140 mEq/L 134-149 Total Bilirubin 0.7 mg/dL 0.2-1.3 Total Protein 6.8 g/dL 6.3-8.1 Potassium 4.9 mEq/L 3.6-5.5 Globulin 2.3 g/dL 2.0-4.8 A/G Ratio 1.9 Calc 0.6-2.2 BUN/Creat Ratio 8.8 Calc 8.0-36.0 Lipid Profile 10/21/2009 One[facility] Kumar([facility]) Cholesterol 201 mg/dL High 120-200 HDL 49 mg/dL 30-70 Triglycerides 187 mg/dL 30-200 HDL Risk Factor 4.1 CALC Low 4.2-7.0 LDL (Calculated) 114 CALC 0-129 VLDL (Calculated) 37 mg/dL 0-50 Laboratory test finding 10/21/2009 Oneil Kumar([facility]) PSA 0.20 ng/mL 0.00-4.00 CBC (a) 10/21/2009 [facility] Medicine WBC 6.8 3.6-9.6 (607)- - RBC 4.62 3.90-5.70 Hemoglobin (Fma/CMC/CTX) 15.6 g/dL 12.1 - 17.2 Hematocrit (Fma/CMC/CTX) 42.5 % 36.1 - 50.3 Mean Corpuscular Vol 92.0 82.2-97.4 Mean Corpuscular Hemaglobin 33.8 High 27.6-33.3 Mean Corpuscular Hemo Concen 36.7 High 33.0-36.0 Platelets 243 10^3/ul 150-400 Lymph% 31.8 20.5-51.1 Mixed% 7.6 Neutrophils % 60.6 RDW 13.3 11.6-13.7 Mean Platelet Volume 10.3 7.4-10.4 Ua - Non Micro (a) 10/12/2009 [facility] Appearance CLEAR (607)- - Color YELLOW Glucose, Urine (Fma/CMC/CTX) NEG Bilirubin NEG Ketones 15 mg/dL # SP Grav 1.025 Blood NEG PH 5.5 Protein SSA:NEG Urobil 0.2 E.U./dL Nitrite NEG Leukocytes (a/CMC/[facility]) NEG Comp Metabolic 08/16/2005 [facility] Glucose, Serum 112 mg/dL High 70-105 ([facility]) Male (607)- - (Fma/CMC/CTX) BUN (Fma/CMC/[facility]rex) 12 mg/dL 6-26 Creatinine (Fma/CMC/CTX) 1.2 mg/dL 0.6-1.4 BUN/Creatinin Ratio 10.0 8.0-36 Sodium 136 134-149 Potassium 4.5 3.6-5.5 Chloride 98 mEq/L 94-112 Co2 28 21-32 Calcium (Fma/CMC/[facility]rex) 9.8 mg/dL 8.6-10.2 Total Protein 7.6 g/dL 6.3-8.1 Albumin (a/[facility]CC/[facility]rex) 4.7 3.8-5.5 Globulin 2.9 2.0-4.8 A/G Ratio (Fma/CMC/[facility]) 1.7 0.6-2.2 Alk Phos (a) Male 58 U/L 22-95 Alt-M SGPT Male (a) 21 10-40 Ast Sgot 19 U/L 5-34 Bilirubin, Total 0.6 mg/dL 0.2-1.3 Lipid 08/16/2005 [facility] Cholesterol 198 mg/dL 120-200 Profile([facility]) Male (607)- - (Fma/CMC/[facility]) Triglyceride 131 mg/dL 30-200 HDL Cholesterol ([facility]) Male 54 mg/dL 30-70 LDL, Calculated (a/CMC) 118 CALC 0-129 LDL Direct (FM/CMC/[facility]rex) - mg/dL 0-130 VLDL 26 0-50 HDL Risk Factor (a) 3.7 CALC Low 4.2-7.0 Laboratory test 08/16/2005 [facility] Medicine PSA ([facility]) 0.24 0.0-4.0 finding (607)- - Ua - Non Micro 08/11/2005 [facility] Appearance CLEAR ([facility]) (607)- - Color YELLOW Glucose NEGATIVE Bilirubin NEGATIVE Ketones NEGATIVE SP Grav 1.015 Blood NEGATIVE PH 5.0 Protein NEGATIVE Urobil 0.2 Nitrite NEGATIVE Leukocytes NEGATIVE Ua - Non Micro (a New) 09/13/1999 [facility] Appearance 1.015 (607)- - SP Grav - Esterase - Nitrite 5.0 pH - Protein - Glucose - Ketones - Urobil - Bilirubin - Blood - Comp Metabolic ([facility]) 09/13/1999 [facility] Albumin 4.7 GM/DL 3.80 - 5.50 (607)- - Alkaline Phosphatase 60 U/L 39-130 Bilirubin, Total 0.8 mg/dL 0.2-1.3 BUN 14 mg/dL 10-26 Calcium 8.6 mg/dL 7.4-9.2 Creatinine 1.1 mg/dL 0.6-1.4 Glucose 91 mg/dL 70 - 118 Ast Sgot 23 U/L 9-44 Alt (SGPT) 32 U/L 0-28 Total Protein 7.2 g/dL 6.3-8.1 Sodium 143 mEq/L 134-149 Potassium 5.2 mEq/L 3.6-5.5 Chloride 108 mEq/L 94-112 Co2 28 21-32 Globulin 2.5 2.0-4.8 Albumin / Globulin Ratio 1.9 0.6-2.2 BUN/Creatinin Ratio 12.7 8.0-36 Lipid Profile ([facility]) 09/13/1999 [facility] Cholesterol 206 mg/dL High 140-200 (607)- - Triglyceride 112 mg/dL 30-150 HDL-Chol 48.5 mg/dL 30-70 VLDL 22 mg/dL 0-50 LDL-Calculated 136 0-160 CBC With Diff ([facility]) 09/13/1999 [facility] WBC 7.2 /Hpf 3.6 - 9.6 (607)- - Lymphocytes 27.0 % 20.5 - 51.1 Monocytes 4.7 % 1.7 - 9.3 Granulocytes 68.3 % 42.2 - 75.2 Lymphocytes 1.9 10^3/uL 0.7 - 4.9 Monocytes 0.3 10^3/uL 0.1 - 0.9 Granulocytes 4.9 10^3/uL 1.5 - 7.2 RBC 4.87 /Hpf 3.90 - 5.70 Hemoglobin 16.1 g/dL 12.1 - 17.2 Hematocrit 47.3 % 36.1 - 50.3 Mean Corpuscular Vol 97.2 fl 82.2 - 97.4 Mean Corpuscular Hemaglobin 33.0 pg 27.6 - 33.3 Mean Corpuscular Hemo Concen 34.0 g/dL 33.0 - 34.8 RDW 12.6 % 11.6 - 13.7 Platelets 228 10^3/ul 150-400 Mean Platelet Volume 8.6 fl 7.4 - 10.4 1 Because ethnic data is not always [...] 15-29 5 Kidney failure <15 (or dialysis) 2 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 Positive results are not confirmed. Specimen was received without chain of custody. Results should be used for medical purposes only. 11 Because ethnic data is not always readily [...] 15-29 5 Kidney failure <15 (or dialysis) 12 Toxic levels: greater than 150 mcg/ml @ 4hr post ingest Greater than 50 mcg/ml @ 12hr post ingest The detection limit for acetaminophen is 10.0 mcg/ml . Values less than 10.0 mcg/ml cannot be accurately measured. 13 The detection limit for Ethanol is 10.0 mg/dl . Values less than 10.0 mg/dl cannot be accurately measured. 14 RESULT SHERON'D 15 Because ethnic data is not always readily [...] 15-29 5 Kidney failure <15 (or dialysis) 16 result reckd' 17 result sheron'd Procedures Date Code Description Status 11/23/2018 70343 Remove Impacted Cerumen Completed 01/31/2018 78607 Remove Impact Cerumen Irrigati Completed 12/14/2017 73113 Vision Test- screening test of visual acuity, Completed quantitative, bila 06/23/2017 44123 Remove Impact Cerumen Irrigati Completed 03/14/2016 63695 Vision Test- screening test of visual acuity, Completed quantitative, bila 11/08/2015 21427 Remove Impacted Cerumen Completed 10/29/2014 70013 Vision Test- screening test of visual acuity, Completed quantitative, bila 04/08/2013 50082 Vision Test- screening test of visual acuity, Completed quantitative, bila 01/30/2013 28400 Finger Or Heel Stick Completed 01/25/2013 65470 Finger Or Heel Stick Completed 01/21/2013 99137 Finger Or Heel Stick Completed 01/18/2013 24817 Finger Or Heel Stick Completed 01/16/2013 44519 Finger Or Heel Stick Completed 01/13/2013 42340 Electrocardiogram Complete Completed 11/12/2012 45389175 Colonoscopy Completed 04/11/2010 81914 Finger Or Heel Stick Completed 09/13/1999 41678 Electrocardiogram Complete Completed Encounters Type Date Location Provider Dx Diagnosis Office Visit 09/20/2018 Main Office Juan Hilliard, R22.1 Localized swelling, 4:20p M.D. mass and lump, neck I10 Essential (primary) hypertension I48.1 Persistent atrial fibrillation Z01.818 Encounter for other preprocedural examination Office Visit 09/05/2018 2:20p [facility] Juan Hilliard, R22.1 Localized M.D. swelling, mass and lump, neck I10 Essential (primary) hypertension I48.0 Paroxysmal atrial fibrillation Office Visit 01/31/2018 9:15a Main Office Whitney Jose H61.23 Impacted Harshal alonzo NP bilateral Office Visit 08/14/2017 2:00p Main Office Juan Hilliard, I10 Essential ( primary) M.D. hypertension I48.0 Paroxysmal atrial fibrillation Office Visit 06/23/2017 9:15a Main Office Whitney Jose H61.23 Impacted Harshal alonzo NP bilateral Office Visit 03/12/2017 2:40p Main Office Juan Hilliard, I10 Essential ( primary) M.D. hypertension I48.0 Paroxysmal atrial fibrillation Office Visit 12/15/2016 9:20a Main Office Juan Hilliard, I10 Essential ( primary) M.D. hypertension I48.0 Paroxysmal atrial fibrillation Office Visit 11/14/2016 3:00p Main Office Juan Hilliard, I48.0 Paroxysmal atrial M.D. 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 hypertension I48.0 Paroxysmal atrial fibrillation Z23 Encounter for immunization Office Visit 10/29/2014 3:20p [facility] Juan Parham V70.0 Examination Quan Hilliard General Medical Routine AT Health Care Facility 401.1 Hypertension Benign 427.31 Atrial Fibrillation 600.00 hypertrophy benign of prostate without urinary obstruction 246.9 Thyroid Disorders Unspec Office Visit 12/08/2013 8:10a Main Office Juan Hilliard, 401.1 Hypertension Benign M.D. 427.31 Atrial Fibrillation Office Visit 09/08/2013 8:40a Main Office Juan Hilliard, 401.1 Hypertension Benign M.D. 427.31 Atrial Fibrillation Office Visit 06/09/2013 8:10a Main Office Juan Hilliard, 427.31 Atrial Fibrillation M.D. 401.1 Hypertension Benign 278.02 Overweight Office Visit 01/13/2013 8:00a Main Office Juan Hilliard, 427.31 Atrial Fibrillation M.D. 401.1 Hypertension Benign V58.61 Anticoagulants Shelter (Current) Use Encounter Office Visit 11/20/2012 9:40a Main Office Vikram Ch 427.31 Atrial Fibrillation Quan Landeros Office Visit 10/07/2012 12:00p Main Office Isela Lee NP 380.4 Impacted Cerumen Office Visit 09/30/2012 8:00a Main Office Juan Hilliard, 401.1 Hypertension Benign M.D. 380.4 Impacted Cerumen Office Visit 04/24/2012 1:10p Main Office Vikram Ch 381.4 Otitis Media Acute Or Quan Landeros Chronic Nonsuppurative Office Visit 04/02/2012 10:20a Main Office Juan Hilliard, V70.0 Examination General M.D. Medical Routine AT Health Care Facility 401.1 Hypertension Benign 272.4 Hyperlipidemia Other Unspec 600.00 hypertrophy benign of prostate without urinary obstruction 477.9 Rhinitis Allergic Cause Unspec Office Visit 07/21/2011 8:20a Main Office Juan Hilliard, 401.1 Hypertension Benign M.D. 477.9 Rhinitis Allergic Cause Unspec Office Visit 03/17/2011 8:10a Main Office Juan Hilliard, 401.1 Hypertension Benign M.D. 477.9 Rhinitis Allergic Cause Unspec 784.0 Headache Office Visit 11/07/2010 8:50a Main Office Juan Hilliard, 401.1 Hypertension Benign M.D. 477.9 Rhinitis Allergic Cause Unspec 780.50 Sleep Disturbance Unspec Office Visit 10/20/2010 10:15a Main Office Devora Tapia, 380.4 Impacted Cerumen Afnp-C Office Visit 07/15/2010 8:20a Main Office Juan Hilliard, 401.1 Hypertension Benign M.D. Office Visit 04/11/2010 8:20a Main Office Juan Hilliard, 401.1 Hypertension Benign M.D. 790.6 Abnormal Blood Chemistry Other Office Visit 01/10/2010 8:40a Main Office Juan Hilliard, 401.1 Hypertension Benign M.D. 272.4 Hyperlipidemia Other Unspec Office Visit 10/12/2009 7:20p Main Office Juan Hilliard, 401.1 Hypertension Benign M.D. 600.00 hypertrophy benign of prostate without urinary obstruction V70.0 Examination General Medical Routine AT Health Care Facility Office Visit 11/24/2006 10:00a Main Office Rachelle murillo 380.4 Impacted Cerumeeugene Sorto M.D. Office Visit 10/06/2005 4:40p Main Office Juan Hilliard, 401.1 Hypertension Benign M.D. Office Visit 08/11/2005 3:20p Main Office Juan Hilliard, V70.0 Examination General M.D. Medical Routine AT Health Care Facility 401.1 Hypertension Benign 272.4 Hyperlipidemia Other Unspec 600.00 hypertrophy benign of prostate without urinary obstruction V17.3 History Family Ischemic Heart Disease Office Visit 06/05/2005 1:15p Main Office Zahra Dunne, ASSEMBL[employer] UP MECHANIC 461.2 Sinusitis Acute Ethmoidal Office Visit 08/09/2001 4:10p Main Office Juan Hilliard M.D. Plan of Treatment Future Appointment(s):02/10/2019 4:00 pm - Juan Hilliard M.D. at Main [id number]/23/2018 - Meka Lewis, NPH61.23 Impacted cerumen, bilateralComments:Warm water irrigation successful. Patient tolerated well. Discussed not to use Q tips, rather use a wash cloth around outside of ears. Avoid excessive use of headphones that enter ear canal, if using for long time use over ear type. Debrox as needed for excessive ear wax.AllComments: Medication Management Patient Understands medications he 's taking? Yes No Are there Barriers to Adherence? Yes No Has the patient been asked about herbal supplements and therapies, andOTC meds? Yes No Care Plan1. Patient has been queried about patient's goals/preferences and functional/lifestyle goals at relevant visits. If relevant, describe: na2. Treatment goals as explained to the patient: above3. Are there barriers to meeting treatment goals? Yes No If Yes, please describe:4. Self- Management goals as described to the patient: Yes NoAs always, we strongly encourage a healthy diet and making physical activity a part of your every day life. If you have questions about how or where to start, please contact the office.
[2018-11-26] MEDS ORDERED: Polyethylene Glycol 3350* 17 GM PACKET PO ONE (18:26)
[2018-11-26] MEDS: NS 0.9% 1000 ML** 1,000 ML IV SCH (19:17)
[2018-11-26] MEDS ORDERED: Acetaminophen TAB* 325 MG ONE (23:47)
[2018-11-26] MEDS: Acetaminophen TAB* 325 MG PO PRN (23:50)
[2018-11-27] MEDS: NS 0.9% 1000 ML** 1,000 ML IV SCH ×3 (02:03→19:11)
[2018-11-27 07:10] LABS: Albumin 3.4 g/dL (3.2-5.2); Albumin/Globulin Ratio 1.2 (1-3); BUN/Creatinine Ratio 17.1 (8-20); Calcium 8.5 mg/dL (8.6-10.3); EGFR African American 31.1 (>60); EGFR Non-African American 25.7 (>60); Globulin 2.8 g/dL (2-4); Potassium 3.8 mmol/L (3.5-5.0); Total Bilirubin 0.4 mg/dL (0.2-1.0); Total Protein 6.2 g/dL (6.4-8.9)
[2018-11-27] MEDS: Diltiazem CD CAP* 240 MG PO SCH (08:07)
[2018-11-27] MEDS ORDERED: Docusate CAP* 100 MG PO PRN (10:01)
[2018-11-27] MEDS ORDERED: Senna TAB PO PRN (10:01)
[2018-11-27] MEDS ORDERED: Polyethylene Glycol 3350* 17 GM PACKET PO ONE (10:02)
[2018-11-27] MEDS: Acetaminophen TAB* 325 MG PO PRN (13:36)
[2018-11-28] MEDS: NS 0.9% 1000 ML** 1,000 ML IV SCH ×3 (01:47→22:53)
[2018-11-28] MEDS: Diltiazem CD CAP* 240 MG PO SCH (07:32)
[2018-11-28 09:21] LABS: ABS Lymphocytes 0.5 10^3/ul (1.0-4.8); ABS Monocytes 0.4 10^3/ul (0-0.8); Eosinophil % 0.5 %; Hematocrit 32 % (42-52); Hemoglobin 11.2 g/dL (14.0-18.0); Mean Corpuscular HGB Conc 35 g/dL (31-36); Mean Corpuscular Hemoglobin 33 pg (27-31); Mean Corpuscular Volume 95 fL (80-94); Mean Platelet Volume 8.5 fL (7.4-10.4); Platelet Count 252 10^3/uL (150-450); Red Blood Count 3.37 10^6 /uL (4.18-5.48); Red Cell Distribution Width 13 % (10-15); White Blood Count 6.9 10^3/uL (3.5-10.8)
[2018-11-28 09:32] LABS: BUN/Creatinine Ratio 15.1 (8-20); Calcium 8.6 mg/dL (8.6-10.3); EGFR African American 42.6 (>60); EGFR Non-African American 35.2 (>60); Potassium 3.9 mmol/L (3.5-5.0)
[2018-11-28] MEDS ORDERED: Diazepam TAB(*) 5 MG PO ONE (10:07)
--- NOTE | 2018-11-28 12:07 | PN ---
Progress Note - Progress Note Date of Service: 11/28/18 SOAP: Subjective: [Alex reports feeling relatively well today. Urinating frequently. NPO for PEG tube placement today.] Objective: [ Vital Signs: Temp Pulse Resp BP Pulse Ox 98.1 F 113 22 162/109 99 11/28/18 07:07 11/28/18 07:07 11/28/18 10:32 11/28/18 07:07 11/28/18 07:07 Acetaminophen (Tylenol Tab*) 650 mg PO Q4H PRN PRN Reason: PAIN/ FEVER Last Admin: 11/27/18 13:36 Dose: 650 mg Diltiazem HCl (Cardizem Cd Cap*) 240 mg PO QAM [facility] Last Admin: 11/28/18 07:32 Dose: 240 mg Docusate Sodium (Colace Cap*) 100 mg PO BID PRN PRN Reason: CONSTIPATION Sodium Chloride (Ns 0.9% 1000 Ml) 1,000 mls @ 150 mls/hr IV PER RATE [facility] Last Admin: 11/28/18 07:32 Dose: 150 mls/hr Senna (Senokot Tab*) 1 tab PO BID PRN PRN Reason: CONSTIPATION Laboratory Results - last 24 hr 11/28/18 11/28/18 08:45 08:49 WBC 6.9 RBC 3.37 L Hgb 11.2 L Hct 32 L MCV 95 H MCH 33 H MCHC 35 RDW 13 Plt Count 252 MPV 8.5 Neut % (Auto) 86.6 Lymph % (Auto) 7.0 [place] % (Auto) 5.3 Eos % (Auto) 0.5 Baso % (Auto) 0.6 Absolute Neuts (auto) 6.0 Absolute Lymphs (auto) 0.5 L Absolute Monos (auto) 0.4 Absolute Eos (auto) 0.0 Absolute Basos (auto) 0.0 Absolute Nucleated RBC 0.0 Nucleated RBC % 0.0 Sodium 139 Potassium 3.9 Chloride 104 Carbon Dioxide 27 Anion Gap 8 BUN 29 H Creatinine 1.92 H Est GFR ( Amer) 42.6 Est GFR (Non-Af Amer) 35.2 BUN/Creatinine Ratio 15.1 Glucose 130 H Calcium 8.6 Exam: Gen: Mildly ill appearing 68 yo male in NAD HEENT: R facial edema and mild skin reaction CV: RRR no m/r/g Resp: CTA, no w/c/r Abd: soft, nonTTP Ext: no edema] Assessment: [68 yo male with head and neck cancer undergoing concurrent radiation and cisplatin chemotherapy who has been admitted with JESSICA following C1 cisplatin secondary to poor oral intake and renal injury associated with cisplatin. His treatment course unfortunately has been complicated further by a R jaw fx which has been evaluated by oral surgery who did not feel surgical intervention was indicated and did not recommend specific restrictions.] Plan: [1. JESSICA - improving - Cr continues to drop, good urine output - cont IVF, monitor Cr daily 2. Dysphagia - secondary to mucositis secondary to neck RT, but further limited by pain secondary to R mandible fx - plan for PEG tube placement with GI today 3. Jaw fx - no restrictions or surgical intervention per oral surgery 4. Head/neck CA - cont RT - chemotherapy plan will depend on recovery of Cr prior to next cycle which is due next week Dispo: anticipate dc home tomorrow assuming there are no complicating with PEG placement]
[2018-11-28] MEDS: Acetaminophen TAB* 325 MG PO PRN ×2 (12:26→17:36)
[2018-11-28] MEDS ORDERED: ceFAZolin 1 GM ADVAN(*) 1 GM ADDV.VIAL IVPB ONE (14:07)
--- NOTE | 2018-11-28 16:34 | PRO ---
CC: Ladonna Odell MD; Juan Hilliard MD * DATE OF PROCEDURE: 11/28/18 - ROOM #401 PROCEDURE: EGD with PEG tube placement. REFERRING PROVIDER: Ladonna Odell MD. PRIMARY CARE PHYSICIAN: Juan Hilliard MD INDICATION: The patient was diagnosed with head and neck cancer, undergoing chemotherapy and radiation. MEDICATIONS GIVEN: Midazolam 3 mg IV, Fentanyl 25 mcg IV. DESCRIPTION OF PROCEDURE: Full disclosure of risks was reviewed with the patient as detailed on the consent form. The patient was placed in the left lateral decubitus position and monitored with continuous pulse oximetry, capnography, interval blood pressure monitoring, and direct observation. A bite block was placed between the patient's teeth. An adult gastroscope was then inserted into the patient's mouth and advanced down the esophagus, into the stomach, and into the distal duodenum. Esophagus was a normal tubular structure. The scope was then advanced to the stomach. Stomach was examined in the forward and retroflexed views. In the gastric body, there was a gastric erosion. In the gastric antrum, there were small clean-based gastric ulcers. Scope was then advanced into the duodenum to at least the third portion of the duodenum. The mucosa was unremarkable. Scope was then withdrawn back into the stomach. Stomach was insufflated, and sacral indentation and translumination were used to help determine the appropriate place to place the G-tube. This was felt to be 2 to 3 fingerbreadths below the rib cage and the left upper quadrant. There was excellent one-to-one movement and excellent translumination. The skin was cleansed thoroughly and sterilized. An injection of 1% lidocaine into the subcutaneous skin making a wheal was performed. The needle with lidocaine was then used to pass into this. We then advanced into the stomach. This was confirmed endoscopically. The lidocaine was then instilled into the tract as the needle was withdrawn for a numbing effect. No bubbles were seen on withdrawal, indicating that it was unlikely other organs were passed through by the needle. A small incision was then created with a scalpel and then a trocar needle was placed through the previous access site. This extended into the lumen of the stomach. A blue wire was then placed through the trocar needle. This wire was grasped with the snare and then with-drawn from the patient. The PEG tube was tied on to the end of the blue wire and was then successfully pulled into the place using the pull method. The bumper was placed at [address] Howell then took a second look with the endoscope to confirm gastric placement in the lumen. The patient tolerated the procedure well and was recovered in the GI recovery room in stable condition. IMPRESSION: 1. Complete upper endoscopy into the duodenum with successful PEG tube placement, 20-Tanzanian. 2. Few small gastric erosions and clean-based ulcers, not felt to be a contraindication to PEG placement. 3. PEG tube placement, 20-Tanzanian. FOLLOWUP: 1. Okay to use PEG tube for medications and flushes. GI will reassess the patient in the morning, and assuming site looks appropriate, then the patient too will be cleared for tube feeding tomorrow. I recommend that oncology have Nutrition meet with the patient to review recommendations for PEG tube use. 2. Recommend PPI b.i.d. for 1 month and decrease to once daily. 3. Recommend H. pylori stool antigen. 4. Consider repeat EGD in 2 to 3 months to ensure healing of gastric erosions or ulcers depending on clinical status. Thank you very much for this referral. [id number]/[facility] #: [id number] CHARLETTE
[2018-11-28] MEDS: Pantoprazole TAB * 40 MG TAB PO SCH (20:59)
[2018-11-29 02:59] VITALS: BP 142/89
[2018-11-29] MEDS: NS 0.9% 1000 ML** 1,000 ML IV SCH (05:48)
[2018-11-29 07:11] LABS: BUN/Creatinine Ratio 13.3 (8-20); Calcium 8.1 mg/dL (8.6-10.3); EGFR African American 50.4 (>60); EGFR Non-African American 41.7 (>60); Magnesium 1.3 mg/dL (1.9-2.7); Potassium 3.4 mmol/L (3.5-5.0)
[2018-11-29] MEDS: Pantoprazole TAB * 40 MG TAB PO SCH (08:34)
[2018-11-29] MEDS: Diltiazem CD CAP* 240 MG PO SCH (08:34)
[2018-11-29] MEDS ORDERED: Magnesium Sulf 4 GM/100 ML IV* 4,000 MG/100 ML BAG IVPB ONE (09:31)
[2018-11-29] MEDS: KCL 10 MEQ/50 ML IVPREMIX* 10 MEQ/50 ML BAG IV SCH ×3 (10:47→13:21)
[2018-11-29] MEDS ORDERED: Diazepam TAB(*) 5 MG PO ONE (11:30)
--- NOTE | 2018-12-02 01:06 | DS ---
CC: Dr. Hilliard; Dr. Odell; Dr. Brody * DISCHARGE SUMMARY: DATE OF ADMISSION: 11/26/18 DATE OF DISCHARGE: 11/29/18 PRIMARY CARE PROVIDER: Dr. Hilliard. PRIMARY MEDICAL ONCOLOGIST: Dr. Ladonna Odell. RADIATION ONCOLOGIST: Dr. Jeff Brody. ATTENDING PHYSICIAN: Dr. Quinn So.* (DICTATED BY NIMO DODD) DISCHARGING PROVIDER: NIMO Dodd. PRIMARY DISCHARGE DIAGNOSES: 1. Acute renal insufficiency secondary to hypovolemia as a result of poor oral intake in addition to nephrotoxicity secondary to high dose cisplatin treatment. 2. 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 3. Anemia secondary to chemotherapy. 4. Hypokalemia, hypomagnesemia secondary to cisplatin therapy. 5. Atrial fibrillation - anticoagulated with Pradaxa without complication this hospital stay. 6. Right mandibular fracture. DISCHARGE MEDICATIONS: 1. Pradaxa 150 mg p.o. twice daily. 2. Valium 5 mg p.o. daily as needed prior to radiation therapy. 3. Diltiazem 240 mg p.o. daily. 4. Magnesium oxide 400 mg p.o. daily. 5. Protonix 40 mg p.o. or G-tube twice daily. 6. Potassium chloride 20 mEq p.o. or G-tube twice daily. HOSPITAL IMAGING: None. HOSPITAL COURSE: This is a 68-year-old gentleman currently undergoing combined modality chemotherapy and radiation for limited stage base of tongue cancer. He received his first cycle of cisplatin on 11/11/18. He unfortunately missed a routine lab draw for unclear reasons after his first week of treatment and presented on 11/26/18 for labs with a creatinine of 3.9. He reported significant decrease in oral intake over the last week or so with decrease in urination. He unfortunately sustained a right mandibular fracture for which was seen by oral surgery on 11/18/18 and again just prior to admission and felt that no surgical intervention was necessary and did not provide any specific restrictions on oral intake at that time. The patient was subsequently admitted to the hospital due to acute renal insufficiency and inability to take in adequate amounts by mouth. The patient was treated with IV fluids with significant improvement in his renal function throughout his hospitalization. Creatinine at the time of discharge is 1.6. Of note, the patient did undergo PEG tube placement, which was planned prior to this hospitalization due to his decrease in oral intake. This also completed without complication. The patient did meet with dietitian staff prior to discharge and received recommendations to attempt up to 7 cans of Jevity daily with additional water flushes. The patient did experience significant increase in anxiety during radiation treatment during this hospitalization and required Valium in order to successfully complete his therapy. He is being discharged with prescription for daily Valium prior to his radiation treatments and we will continue to work with the radiation oncology staff to make this a sustainable effort. DISPOSITION AND FOLLOWUP PLAN: The patient is being discharged to home in stable condition. His sister and [id number] are currently living with him and providing support. He will be seen in the oncology clinic on 12/02/18 at which point, he will have a repeat lab check. He will either receive his second cycle of cisplatin at that time with his renal function that seemed to improve or if continues to be compromised, he will transition to carboplatin and 5-FU per Dr. Odell's recommendation. As noted above, the patient now has a PEG tube in place and has nutrition recommendation for up to 7 cans of Jevity daily with additional water flushes. The amount that he takes in via PEG tube will depend on his ability to take in p.o. and he is still tolerating soft foods at the time of discharge. He does not have any specific recommendations from oral surgery regarding his right mandibular fracture. NIMO DODD [id number]/[facility] #: [id number] [facility] HOSPITALMarty
== END 2018-11-29 16:00 | disposition home health service (06) | DRG 683 ==
LOC: MED 17:40 → PREOBSVTOIN 17:40
PROVIDERS: ADMIT Internal Medicine Hematology & Oncology; ATTEND Internal Medicine Hematology & Oncology
PROC: DWY17ZZ Contact Radiation of Head and Neck (ICD-10-PCS; principal; 2018-11-28)
PROC: 0DH63UZ Insertion of Feeding Device into Stomach, Percutaneous Approach (ICD-10-PCS; 2018-11-28)
DX: N17.9 Acute kidney failure, unspecified (principal); S02.609A Fracture of mandible, unspecified, initial encounter for closed fracture; S02.609D Fracture of mandible, unspecified, subsequent encounter for fracture with routine healing; E86.1 Hypovolemia; C01 Malignant neoplasm of base of tongue; D64.81 Anemia due to antineoplastic chemotherapy; E87.6 Hypokalemia; E83.42 Hypomagnesemia; I48.91 Unspecified atrial fibrillation; F41.9 Anxiety disorder, unspecified; K59.00 Constipation, unspecified; I10 Essential (primary) hypertension; M19.90 Unspecified osteoarthritis, unspecified site; F32.9 Major depressive disorder, single episode, unspecified; T45.1X5A Adverse effect of antineoplastic and immunosuppressive drugs, initial encounter; R13.10 Dysphagia, unspecified; K12.30 Oral mucositis (ulcerative), unspecified; K25.9 Gastric ulcer, unspecified as acute or chronic, without hemorrhage or perforation; Z79.01 Long term (current) use of anticoagulants; Y92.9 Unspecified place or not applicable; Z80.42 Family history of malignant neoplasm of prostate; Z80.8 Family history of malignant neoplasm of other organs or systems
CPT/HCPCS: 36415; 80048; 80053; 83735; 85025; 99156; 99157; 99222; 99232; 99239; A9270-GY; J0690; J2250; J3010; J3475; J3480

== ENCOUNTER 2018-12-14 19:46 | Inpatient (IN) | payer OTHER ==
--- OUTSIDE RECORDS SUMMARY | 2018-12-14 20:11 | XMS REPORT | Continuity of Care Document ---
:1950 External Reference #:[id number] Author Name Violeta Landry Care Team Providers Name Role Phone Juan Hilliard MD Primary Care Physician Unavailable Payers Date Identification Numbers Payment Provider Subscriber Effective: 1993 Policy Number: [id number] [employer] Pal Florez Group Number: [id number] [id number] PayID: [id number] [place] [address] Problems Active Problems Provider Date Premature beats Tray Ward M.D. Onset: 02/05/2014 Mitral valve disorder Tray Ward M.D. Onset: 02/03/2013 Tachycardia Tray Ward M.D. Onset: 01/13/2013 Benign essential hypertension Tray Ward M.D. Onset: 01/13/2013 Electrocardiogram abnormal Tray Ward M.D. Onset: 01/13/2013 Atrial fibrillation Tray Ward M.D. 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 08/05/2013 240mg Caps ER every day Quan Ward 24HR Pradaxa 1 cap by mouth 180caps Tray S. 08/05/2013 150mg Capsules twice a day Quan Ward Multi For Him 50+ 1 by mouth Unknown every day Tablets History Medications Lovenox 1 subcutaneously q12h 8units Tray S. 01/13/2013 - as directed Quan Ward 02/03/2013 100mg/ml Solution Dilt-CD 2 po qd 30caps Tray S. - 120mg Quan Ward 08/05/2013 Caps ER 24HR Aspirin Ec 1 po qd 90tabs Unknown - 02/03/[address] Warfarin Sodium take as 100tabs Unknown - directed(Midura 08/05/2013 5mg Tablets watching) Vital Signs Date Vital Result Comment 02/05/2014 2:27pm Height 70 inches 5'10" Weight 213.50 lb w/shoes Heart Rate 70 /min BP Systolic Sitting 180 mmHg BP Diastolic Sitting 88 mmHg Respiratory Rate 15 /min BMI (Body Mass Index) 30.6 kg/m2 02/12/2013 8:22am Heart Rate 97 /min BP Systolic 140 mmHg BP Diastolic 80 mmHg Respiratory Rate 16 /min 02/03/2013 10:31am Height 70 inches 5'10" Weight 223.00 lb Heart Rate 76 /min BP Systolic Sitting 158 mmHg BP Diastolic Sitting 88 mmHg Respiratory Rate 16 /min BMI (Body Mass Index) 32.0 kg/m2 01/13/2013 10:17am Height 70 inches 5'10" Weight 221.00 lb Heart Rate 124 /min irregular BP Systolic Sitting 178 mmHg BP Diastolic Sitting 100 mmHg Respiratory Rate 20 /min BMI (Body Mass Index) 31.7 kg/m2 Results Test Date Facility Test Result H/L Range Note Basic Metabolic 12/05/2018 [facility] Sodium 137 mmol/L N 135- 145 Panel [address] [place] [address] [phone] Potassium 4.2 mmol/L N 3.5-5.0 Chloride 103 mmol/L N 101-111 Co2 Carbon Dioxide 27 mmol/L N 22-32 Anion Gap 7 mmol/L N 2-11 Glucose 142 mg/dL High 70-100 Blood Urea Nitrogen 33 mg/dL High 6-24 Creatinine 1.61 mg/dL High 0.67-1.17 BUN/Creatinine Ratio 20.5 High 8-20 Calcium 8.4 mg/dL Low 8.6-10.3 Egfr Non- 43.2 >60 Egfr 52.2 >60 1 Laboratory test 12/05/2018 [facility] Magnesium 1.8 mg/dL Low 1.9-2.7 finding [address] [place] [address] [phone] Basic Metabolic 12/04/2018 [facility] Sodium 133 mmol/L Low 135-145 Panel [address] [place] [address] [phone] Potassium 4.2 mmol/L N 3.5-5.0 Chloride 99 mmol/L Low 101-111 Co2 Carbon Dioxide 26 mmol/L N 22-32 Anion Gap 8 mmol/L N 2-11 Glucose 117 mg/dL High 70-100 Blood Urea Nitrogen 28 mg/dL High 6-24 Creatinine 1.60 mg/dL High 0.67-1.17 BUN/Creatinine Ratio 17.5 N 8-20 Calcium 8.9 mg/dL N 8.6-10.3 Egfr Non- 43.5 >60 Egfr 52.6 >60 2 Laboratory test 12/04/2018 [facility] Magnesium 1.8 mg/dL Low 1.9-2.7 finding [address] [place] [address] [phone] CBC Auto Diff 11/26/2018 [facility] White Blood 7.4 N 3.5- 10.8 [facility] [place] [facility] Count 10^3/[place] [address] [phone] Red Blood Count 3.54 10^6/uL Low 4.18-5.48 Hemoglobin 11.7 g/dL Low 14.0-18.0 Hematocrit 34 % Low 42-52 Mean Corpuscular Volume 95 fL High 80-94 Mean Corpuscular Hemoglobin 33 pg High 27-31 Mean Corpuscular HGB Conc 35 g/dL N 31-36 Red Cell Distribution Width 13 % N 10-15 Platelet Count 221 10^3/uL N 150-450 Mean Platelet Volume 8.3 fL N 7.4-10.4 Abs Neutrophils 6.2 10^3/uL N 1.5-7.7 Abs Lymphocytes 0.6 10^3/uL Low 1.0-4.8 Abs Monocytes 0.5 10^3/uL N 0-0.8 Abs Eosinophils 0.0 10^3/uL N 0-0.6 Abs Basophils 0.1 10^3/uL N 0-0.2 Abs Nucleated RBC 0.0 10^3/uL Granulocyte % 83.8 % Lymphocyte % 7.8 % Monocyte % 7.1 % Eosinophil % 0.5 % Basophil % 0.8 % Nucleated Red Blood Cells % 0.1 Urinalysis Profile 11/26/2018 [facility] Urine Color Yellow [address] [place] [address] [phone] Urine Appearance Cloudy Urine Specific [place] 1.021 N 1.010-1.030 Urine pH 5.0 N 5-9 Urine Urobilinogen Negative Negative Urine Ketones Negative Negative Urine Protein Negative Negative Urine Leukocytes Negative Negative Urine Blood Negative Negative * * Abnormal Negative 3 Urine Nitrite Negative Negative Urine Bilirubin Negative Negative Urine Glucose Negative Negative Comp Metabolic Panel 11/26/2018 [facility] Sodium 135 mmol/L N 135-145 [address] [place] [address] [phone] Chloride 99 mmol/L Low 101-111 Co2 Carbon Dioxide 27 mmol/L N 22-32 Glucose 101 mg/dL High 70-100 Blood Urea Nitrogen 56 mg/dL High 6-24 Creatinine 3.51 mg/dL High 0.67-1.17 BUN/Creatinine Ratio 16.0 N 8-20 Calcium 8.6 mg/dL N 8.6-10.3 Total Protein 6.5 g/dL N 6.4-8.9 Albumin 3.6 g/dL N 3.2-5.2 Globulin 2.9 g/dL N 2-4 Albumin/Globulin Ratio 1.2 N 1-3 Total Bilirubin 0.40 mg/dL N 0.2-1.0 Alkaline Phosphatase 56 U/L N 34-104 Alt 15 U/L N 7-52 Egfr Non- 17.6 >60 Egfr 21.2 >60 4 Potassium TNP mmol/L 3.5-5.0 5 Anion Gap 9 mmol/L N 2-11 Ast TNP U/L 13-39 6 CBC Auto Diff 11/11/2018 [facility] White Blood 8.8 10^3/uL N 3.5-10.[address] [place] [address] [phone] Red Blood Count 4.23 10^6/uL N 4.18-5.48 [...] Cells % 0.2 Comp Metabolic Panel 11/11/2018 [facility] Sodium 138 mmol/L N 135-[address] [place] [address] [phone] Potassium 4.1 mmol/L N 3.5-5.0 Chloride 103 [...] Egfr Non- 83.4 >60 Egfr 100.9 >60 7 Laboratory test 11/11/2018 [facility] Magnesium 2.0 mg/dL N 1.9-2.[address] [place] [address] [phone] Laboratory test 10/15/2018 [facility] Point of Care 134 mg/dL High 70-100 [address] [place] [address] [phone] Laboratory test 09/25/2018 [facility] Surgical SEE RESULT [address] [place] [address] [phone] Laboratory test 09/25/2018 [facility] Cytology SEE RESULT [address] [place] [address] [phone] Basic Metabolic 02/12/2013 [facility] Sodium 137 mmol/L 133- [address] [place] [address] [phone] Potassium 4.5 mmol/L 3.5-5.0 Chloride 103 mmol/L 101-111 Co2 Carbon Dioxide 27.0 mmol/L 22-32 Anion Gap 7.0 mmol/L 2-11 Glucose 108 mg/dL High 70-100 Blood Urea Nitrogen 13 mg/dL 6-24 Creatinine 1.10 mg/dL 0.50-1.40 BUN/Creatinine Ratio 11.8 8-20 Calcium 9.4 mg/dL 8.1-9.9 Egfr Non- 68.3 >60 Egfr 87.8 >60 11 1 Because ethnic data is not always [...] 5 Kidney failure <15 (or dialysis) 2 Because ethnic data is not always readily [...] 15-29 5 Kidney failure <15 (or dialysis) 3 *Ascorbic acid is present which may interfere with detection of blood. 4 Because ethnic data is not always readily [...] 15-29 5 Kidney failure <15 (or dialysis) 5 Specimen Hemolyzed. Result may not be valid. Unable to report test result due to hemolysis. 6 Unable to report test result due to hemolysis. 7 Because ethnic data is not always readily [...] 15-29 5 Kidney failure <15 (or dialysis) 8 Stock Fitter: [id number] 9 SEE RESULT BELOW Name: PAL FLOREZ : [address]: Stevo Angeles MD Acct: [id number] Unit: [id number] AGE: 68 Location: OR Re09/25/18 SEX: M Status: [facility] SPEC: [id number] ALLYSSA: 09/25/18- [facility] DR: Stevo Angeles MD REQ: [id number] RECD: 09/25/18 STATUS: SOUT _ ORDERED: LEVEL 4, IMMUNO-FIRST FINAL DIAGNOSIS Tongue base, biopsy: -- Squamous papilloma. -- No high grade dysplasia or malignancy. COMMENT: A p16 immunohistochemical stain, with appropriately reacting controls, was performed and is positive in a patchy nuclear and cytoplasmic pattern, supporting the diagnosis. PRE-OPERATIVE DIAGNOSIS Neoplasm of uncertain behavior of pharynx GROSS DESCRIPTION The specimen is received in formalin labeled, Biopsies of Tongue Base, and consists of a 1.2 x 1.2 by up to 0.3 cm aggregate of mistry-pink irregular soft tissue fragments which is submitted entirely in one cassette. Signed by and Reported on: Rachelle Triplett MD 09/27/18 1654 END OF REPORT DEPARTMENT OF PATHOLOGY, [address] [place] [address] Perry Salmeron M.D. Director [facility] # [id number] 10 SEE RESULT BELOW Name: PAL FLOREZ : [address]: Stevo Angeles MD Acct: [id number] Unit: [id number] AGE: 68 Location: OR Re09/25/18 SEX: M Status: [facility] SPEC: [id number] ALLYSSA: 09/25/[address]: Stevo Angeles MD REQ: [id number] RECD: 09/25/18 STATUS: SOUT _ ORDERED: FNA INTERP RPT, FNA BY PALP, LEVEL 4, CYTO ADEQ-1ST P, IMMUNO-FIRST FINAL DIAGNOSIS Right neck mass, fine needle aspiration by palpation: -- Malignant. -- Metastatic basaloid squamous cell carcinoma. Comment: An immunohistochemical stain for p16 (HPV surrogate marker) performed with appropriate controls on formalin fixed cell block material is strongly and diffusely positive supporting the above rendered diagnosis and A cell block was prepared in the evaluation of this specimen. Smears and cell block reveal similar findings. The procedure was explained to and understood by the patient. Signed consent was obtained and a time out procedure was performed at the bedside to verify patient identity and biopsy site. Fine needle aspiration biopsy was performed times 2 with a 25 and 23 gauge needle respectively on 3 cm somewhat fixed right upper anterior neck mass. Adequacy was assessed by fast stain technique. The procedure was tolerated well without complications. NECK RIGHT - FINE NEEDLE ASPIRATION BY PALPATION CONTINUED ON NEXT PAGE DEPARTMENT OF PATHOLOGY, [address] [place] [address] Perry Salmeron M.D. Director [facility] # [id number] RUN DATE: 09/27/18 [facility] LAB LIVE PAGE 2 Patient: PAL FLOREZ [id number] (Continued) CLINICAL HISTORY (Continued) CLINICAL HISTORY Right neck mass IMMEDIATE INTERPRETATION Pass 1, and 2-adequate. GROSS DESCRIPTION 1- alcohol fixed slides(s) 2 - passes Needle rinse in formalin solution for cell block. Specomen obtained in O.R. Signed by and Reported on: Perry Salmeron MD 03/08 0829 END OF REPORT DEPARTMENT OF PATHOLOGY, [address] [place] [address] Perry Salmeron M.D. Director [facility] # [id number] 11 Because ethnic data is not always [...] (or dialysis) Procedures Date Code Description Status 02/05/2014 41248 EKG Tracing & Interpretation Completed 02/13/2013 64283 EKG, Interpretation Only Completed 02/12/2013 90586 EKG Tracing & Interpretation Completed 02/11/2013 74474 ECHO Stress Test Incl Perf Contiuous ekg Monitoring W/Phys Completed Superv 02/11/2013 53056 ECHO Stress Test Incl Perf Contiuous ekg Monitoring W/Phys Completed Superv 02/11/2013 59954 EKG Tracing & Interpretation Completed 02/03/2013 64710 EKG Tracing & Interpretation Completed 01/14/2013 43626 EKG, Interpretation Only Completed 01/14/2013 76917 Echocardiography, Transesophageal, Real Time W/Image 2D Completed W/W/O M-M 01/14/2013 68452 Pulse Wave/Continuous-Interp.RPT Completed 01/14/2013 63628 Color Flow Doppler/Interp & Reprt Completed 01/13/2013 89923 EKG Tracing & Interpretation Completed 11/13/2012 85239 EKG, Interpretation Only Completed 11/12/2012 69229 Color Flow Doppler/Interp & Reprt Completed 11/12/2012 82077 Pulse Wave/Continuous-Interp.RPT Completed 11/12/2012 88185 ECHO Transthorasic Realtime 2D W Doppler & Color Flow Hosp Completed 11/12/2012 41314 EKG, Interpretation Only Completed Encounters Type Date Location Provider Dx Diagnosis Office Visit 02/05/2014 [facility] Tray S. 426.4 Right Bundle 2:20p Quan Ward Branch Block 427.31 Atrial Fibrillation 401.1 Hypertension Benign 794.31 Electrocardiogram (ECG) (EKG) Abnormal 427.69 Premature Beats Other Office 02/13/2013 [facility] Tray S. 794.31 Electrocardiogram Visit 10:00a Rosa Ward M.D. (ECG) (EKG) Abnormal 426.4 Right Bundle Branch Block 427.31 Atrial Fibrillation 424.0 Mitral Valve Disorder Office Visit 02/12/2013 8:00a [facility] Nurse Visit 427.31 Atrial Fibrillation cc 401.1 Hypertension Benign 426.4 Right Bundle Branch Block Office Visit 02/11/2013 Celestine Feliz S. 427.31 Atrial 2:45p Rosa Ward M.D. Fibrillation 401.1 Hypertension Benign 426.4 Right Bundle Branch Block 424.0 Mitral Valve Disorder 794.31 Electrocardiogram (ECG) (EKG) Abnormal Office Visit 02/03/2013 Celestine Feliz S. 427.31 Atrial 11:00a Rosa Ward M.D. Fibrillation 401.1 Hypertension Benign 426.4 Right Bundle Branch Block 424.0 Mitral Valve Disorder Office Visit 01/14/2013 Cel[facility] Feliz S. 427.31 Atrial 8:00a Rosa Ward M.D. Fibrillation 794.31 Electrocardiogram (ECG) (EKG) Abnormal 401.1 Hypertension Benign 426.4 Right Bundle Branch Block Office Visit 01/13/2013 Celestine Feliz S. 427.31 Atrial 10:20a Rosa Ward M.D. Fibrillation 794.31 Electrocardiogram (ECG) (EKG) Abnormal 401.1 Hypertension Benign 785.0 Tachycardia Unspec Office Visit 11/13/2012 [facility] Sadiq Zaldivar, 427.31 Atrial 1:54p janel Li M.D. Fibrillation Hospitalists 401.1 Hypertension Benign Office 11/13/2012 [facility] Qutaybeh S. 794.31 Electrocardiogram Visit 9:35a Cardiology Quan Ward (ECG) (EKG) Abnormal 427.31 Atrial Fibrillation 401.1 Hypertension Benign Office Visit 11/12/2012 [facility] 427.31 Atrial 1:53p Assoc,pc Lavell Barreto Fibrillation Hospitalists 401.1 Hypertension Benign Office 11/12/2012 [facility] Quflaviaeh S. 794.31 Electrocardiogram Visit 10:33a Cardiology Quan Ward (ECG) (EKG) Abnormal 427.31 Atrial Fibrillation 401.1 Hypertension Benign Plan of Treatment 02/05/2014 - Tray Ward M.D.426.4 Right Bundle Branch Spwjg896.31 Atrial FibrillationFollow up:7 months ov401.1 Hypertension Ruysoq125.31 Electrocardiogram (Ecg) (Ekg) Qbgxxlcc946.69 Premature Beats OtherFollow up:f/u [place] 2 months
--- OUTSIDE RECORDS SUMMARY | 2018-12-14 20:11 | XMS REPORT | Continuity of Care Document ---
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 Use consumes 2-3 beers per or [...] Result H/L Range Note Basic Metabolic 12/05/2018 [facility] Sodium 137 mmol/L N 135- 145 Panel [address] [place] [address] [phone] Potassium 4.2 mmol/L N 3.5-5.0 Chloride 103 mmol/L N 101-111 Co2 Carbon Dioxide 27 mmol/L N 22-32 Anion Gap 7 mmol/L N 2-11 Glucose 142 mg/dL High 70-100 Blood Urea Nitrogen 33 mg/dL High 6-24 Creatinine 1.61 mg/dL High 0.67-1.17 BUN/Creatinine Ratio 20.5 High 8-20 Calcium 8.4 mg/dL Low 8.6-10.3 Egfr Non- 43.2 >60 Egfr 52.2 >60 1 Laboratory test 12/05/2018 [facility] Magnesium 1.8 mg/dL Low 1.9-2.7 finding [address] [place] [address] [phone] TSH (Thyroid Stim Horm) 0.73 mcIU/mL N 0.34-5.60 Basic Metabolic 12/04/2018 [facility] Sodium 133 mmol/L Low 135-145 Panel [address] [place] [address] [phone] Potassium 4.2 mmol/L N 3.5-5.0 Chloride 99 mmol/L Low 101-111 Co2 Carbon Dioxide 26 mmol/L N 22-32 Anion Gap 8 mmol/L N 2-11 Glucose 117 mg/dL High 70-100 Blood Urea Nitrogen 28 mg/dL High 6-24 Creatinine 1.60 mg/dL High 0.67-1.17 BUN/Creatinine Ratio 17.5 N 8-20 Calcium 8.9 mg/dL N 8.6-10.3 Egfr Non- 43.5 >60 Egfr 52.6 >60 2 Laboratory test 12/04/2018 [facility] Magnesium 1.8 mg/dL Low 1.9-2.7 finding [address] [place] [address] [phone] CBC Auto Diff 11/26/2018 [facility] White Blood 7.4 N 3.5- 10.[address] Count 10^3/[place] [address] [phone] Red Blood Count 3.54 10^6/uL Low 4.18-5.48 [...] Blood Cells % 0.1 Urinalysis Profile 11/26/2018 [facility] Urine Color Yellow [address] [place] [address] [phone] Urine Appearance Cloudy Urine Specific [place] 1.021 N 1.010-1.030 Urine pH 5.0 N 5-9 Urine Urobilinogen Negative Negative Urine Ketones Negative Negative Urine Protein Negative Negative Urine Leukocytes Negative Negative Urine Blood Negative Negative * * Abnormal Negative 3 Urine Nitrite Negative Negative Urine Bilirubin Negative Negative Urine Glucose Negative Negative Comp Metabolic Panel 11/26/2018 [facility] Sodium 135 mmol/L N 135-145 [address] [place] [address] [phone] Chloride 99 mmol/L Low 101-111 Co2 Carbon [...] U/L 13-39 6 CBC Auto Diff 11/11/2018 [facility] White Blood 8.8 10^3/uL N 3.5-10.[address] [place] [address] [phone] Red Blood Count 4.23 10^6/uL N 4.18-5.48 [...] Cells % 0.2 Comp Metabolic Panel 11/11/2018 [facility] Sodium 138 mmol/L N 135-[address] [place] [address] [phone] Potassium 4.1 mmol/L N 3.5-5.0 Chloride 103 [...] Egfr 100.9 >60 7 Laboratory test 11/11/2018 [facility] Magnesium 2.0 mg/dL N 1.9-2.[address] [place] [address] [phone] Laboratory test 10/15/2018 [facility] Point of Care 134 mg/dL High 70-100 [address] [place] [address] [phone] Laboratory test 09/25/2018 [facility] Surgical SEE RESULT [address] [place] [address] [phone] Laboratory test 09/25/2018 [facility] Cytology SEE RESULT [address] Non-Human Resources [place] [address] [phone] Basic Metabolic 02/12/2013 [facility] Sodium 137 mmol/L 133- [address] [place] [address] [phone] Potassium 4.5 mmol/L 3.5-5.0 Chloride 103 mmol/L [...] 5 Kidney failure <15 (or dialysis) 8 Final Tester: [id number] 9 SEE RESULT BELOW Name: PAL FLOREZ : [address]: Stevo Angeles MD Acct: [id number] Unit: [id number] AGE: 68 Location: OR Re09/25/18 SEX: M Status: [facility] SPEC: [id number] ALLYSSA: 09/25/18- SUBM DR: Stevo Angeles MD REQ: [id number] RECD: 09/25/18 STATUS: SOUT _ ORDERED: LEVEL [...] 1654 END OF REPORT DEPARTMENT OF PATHOLOGY, [address] [place] [address] Perry Salmeron M.D. Director [facility] # [id number] 10 SEE RESULT BELOW Name: PAL FLOREZ Nena : [address]: Stevo Angeles MD Acct: [id number] Unit: [id number] AGE: 68 Location: OR Re09/25/18 SEX: M Status: [facility] SPEC: [id number] ALLYSSA: 09/25/18-[address]: Stevo Angeles MD REQ: [id number] RECD: 09/25/18 STATUS: SOUT _ ORDERED: FNA [...] CONTINUED ON NEXT PAGE DEPARTMENT OF PATHOLOGY, [address] [place] [address] Perry Salmeron M.D. Director [facility] # [id number] RUN DATE: 09/27/18 [facility] LAB LIVE PAGE 2 Patient: PAL FLOREZ [id number] (Continued) CLINICAL HISTORY (Continued) CLINICAL HISTORY Right neck mass IMMEDIATE INTERPRETATION Pass 1, and 2-adequate. GROSS DESCRIPTION 1- alcohol fixed slides(s) 2 - passes Needle rinse in formalin solution for cell block. Specomen obtained in O.R. Signed by and Reported on: Perry Salmeron MD 03/08 0829 END OF REPORT DEPARTMENT OF PATHOLOGY, [address] [place] [address] Perry Salmeron M.D. Director [facility] # [id number] 11 Because ethnic data is not always [...] dialysis) Procedures Date Code Description Status 02/05/2014 17115 EKG Tracing & Interpretation Completed 02/13/2013 53614 EKG, Interpretation Only Completed 02/12/2013 27743 EKG Tracing & Interpretation Completed 02/11/2013 39054 ECHO Stress Test Incl Perf Contiuous ekg Monitoring W/Phys Completed Superv 02/11/2013 58445 ECHO Stress Test Incl Perf Contiuous ekg Monitoring W/Phys Completed Superv 02/11/2013 41850 EKG Tracing & Interpretation Completed 02/03/2013 46907 EKG Tracing & Interpretation Completed 01/14/2013 96445 EKG, Interpretation Only Completed 01/14/2013 51820 Echocardiography, Transesophageal, Real Time W/Image 2D Completed W/W/O M-M 01/14/2013 11994 Pulse Wave/Continuous-Interp.RPT Completed 01/14/2013 79805 Color Flow Doppler/Interp & Reprt Completed 01/13/2013 75930 EKG Tracing & Interpretation Completed 11/13/2012 35441 EKG, Interpretation Only Completed 11/12/2012 16554 Color Flow Doppler/Interp & Reprt Completed 11/12/2012 12268 Pulse Wave/Continuous-Interp.RPT Completed 11/12/2012 83039 ECHO Transthorasic Realtime 2D W Doppler & Color Flow Hosp Completed 11/12/2012 97790 EKG, Interpretation Only Completed Encounters Type Date Location Provider Dx Diagnosis Office Visit 02/05/2014 [facility] Tray S. 426.4 Right Bundle 2:20p Quan Ward Branch Block 427.31 Atrial Fibrillation 401.1 Hypertension Benign 794.31 Electrocardiogram (ECG) (EKG) Abnormal 427.69 Premature Beats Other Office 02/13/2013 [place] [facility] Tray S. 794.31 Electrocardiogram Visit 10:00a Rosa Ward M.D. (ECG) (EKG) Abnormal 426.4 Right Bundle Branch Block 427.31 Atrial Fibrillation 424.0 Mitral Valve Disorder Office Visit 02/12/2013 8:00a [facility] Nurse Visit 427.31 Atrial Fibrillation cc 401.1 Hypertension Benign 426.4 Right Bundle Branch Block Office Visit 02/11/2013 [facility] Qurobertybeh S. 427.31 Atrial 2:45p Rosa Ward M.D. Fibrillation 401.1 Hypertension Benign 426.4 Right Bundle Branch Block 424.0 Mitral Valve Disorder 794.31 Electrocardiogram (ECG) (EKG) Abnormal Office Visit 02/03/2013 [place] [facility] Qurobertybeh S. 427.31 Atrial 11:00a Rosa Ward M.D. Fibrillation 401.1 Hypertension Benign 426.4 Right Bundle Branch Block 424.0 Mitral Valve Disorder Office Visit 01/14/2013 [facility] Qutaybeh S. 427.31 Atrial 8:00a Rosa Ward M.D. Fibrillation 794.31 Electrocardiogram (ECG) (EKG) Abnormal 401.1 Hypertension Benign 426.4 Right Bundle Branch Block Office Visit 01/13/2013 [place] Qutaybeh S. 427.31 Atrial 10:20a Rosa Ward M.D. Fibrillation 794.31 Electrocardiogram (ECG) (EKG) Abnormal 401.1 Hypertension Benign 785.0 Tachycardia Unspec Office Visit 11/13/2012 [facility] Sadiq Chanko, 427.31 Atrial 1:54p janel Li M.D. Fibrillation Hospitalists 401.1 Hypertension Benign Office 11/13/2012 [place] Qutaybeh S. 794.31 Electrocardiogram Visit 9:35a [facility]iology Quan Ward (ECG) (EKG) Abnormal 427.31 Atrial Fibrillation 401.1 Hypertension Benign Office Visit 11/12/2012 [facility] [place] 427.31 Atrial 1:53p Assoc,janel Barreto, N.PChrist Fibrillation Hospitalists 401.1 Hypertension Benign Office 11/12/2012 [place] Qutaybeh S. 794.31 Electrocardiogram Visit 10:33a [facility]iology Quan Ward (ECG) (EKG) Abnormal 427.31 Atrial Fibrillation 401.1 Hypertension Benign Plan of Treatment 02/05/2014 - Tray Ward M.D.426.4 Right Bundle Branch Tyngd524.31 Atrial FibrillationFollow up:7 months ov401.1 Hypertension Wpueva792.31 Electrocardiogram (Ecg) (Ekg) Mkoidrwo826.69 Premature Beats OtherFollow up:f/u Flores 2 months
--- NOTE | 2018-12-14 20:20 | ED ---
HPI Febrile Illness - HPI Summary HPI Summary: A 68 y/o male accompanied by his presents to [facility] with a chief complaint of a fever today. At triage he has a temperature of 102.7. He has tongue cancer and denies smoking or EtOH use. He denies any cold but reports coughing up mucous. He has an area of redness and yellow crusting on his right neck. The patient rated his pain as a 0/10 in severity. He is undergoing chemo and radiation. He has a Hx of HTN and atrial fibrillation and is on medications. - History of Current Complaint Chief Complaint: EDFever Time Seen by Provider: 12/14/18 20:11 Hx Obtained From: Patient, Family/Civil Attorney Onset/Duration: Started Hours Ago, Still Present Timing: Constant, Lasting Hours Initial Severity: Mild Current Severity: Mild Pain Intensity: 0 Pain Scale Used: 0-10 Numeric Aggravating Factors: Nothing Alleviating Factors: Nothing Associated Signs and Symptoms: Cough, Other: - redness and yellow crusting area around right neck - Allergy/Home Medications Allergies/Adverse Reactions: Allergies Allergy/AdvReac Type Severity Reaction Status Date / Time No Known Allergies Allergy Verified 12/12/18 11:03 Home Medications: Home Medications Apixaban* [Eliquis*] 5 mg G TUBE BID 12/14/18 [History Confirmed 12/14/18] Diltiazem CD CAP* [Cardizem CD CAP*] 250 mg G TUBE QAM 12/14/18 [History Confirmed 12/14/18] Gabapentin [Gabapentin 250 mg/5ml] 15 ml G TUBE TID 12/14/18 [History Confirmed 12/14/18] Magnesium Oxide TAB* [MagOx 400 TAB*] 400 mg G TUBE BID 12/14/18 [History Confirmed 12/14/18] Metoprolol Tartrate TAB* [Lopressor TAB*] 12.5 mg G TUBE BID 12/14/18 [History Confirmed 12/14/18] Omeprazole 20 mg G TUBE DAILY 12/14/18 [History Confirmed 12/14/18] Potassium Chloride [Klor-Con M20] 20 meq G TUBE DAILY 12/14/18 [History Confirmed 12/14/18] diazePAM [Valium] 5 mg G TUBE DAILY PRN MDD 5mg 12/14/18 [History Confirmed ] PMH/Surg Hx/FS Hx/Imm Hx Endocrine/Hematology History: Denies: Hx Diabetes Cardiovascular History: Reports: Hx Hypertension, Other Cardiovascular Problems/ Disorders - a fib Denies: Hx Pacemaker/ICD Respiratory History: Reports: Hx Sleep Apnea - not diagnosed Denies: Hx Asthma Comment Only: Other Respiratory Problems/Disorders - SLEEP APNEA Sensory History: Reports: Hx Contacts or Glasses Denies: Hx Hearing Aid Opthamlomology History: Reports: Hx Contacts or Glasses Neurological History: Denies: Other Neuro Impairments/Disorders Psychiatric History: Reports: Hx Anxiety - rare Denies: Hx Panic Disorder - Cancer History Cancer Type, Location and Year: NEW DIAGNOSIS BASE TONGUE - Surgical History Surgery Procedure, Year, and Place: tonsillectomy,as a child. right ankle surgery, 20 yrs ago, plate and pins,. eye surgery as a child Hx Anesthesia Reactions: No Infectious Disease History: No Infectious Disease History: Denies: Traveled Outside the [place] in Last 30 Days - Family History Known Family History: Positive: Non-Contributory - Social History Alcohol Use: None Substance Use Type: Reports: None Smoking Status (MU): Never Smoked Tobacco Review of Systems Positive: Fever - 102.7 at triage Positive: Cough Positive: Other - positive: yellow crusting and redness right side of neck All Other Systems Reviewed And Are Negative: Yes Physical Exam - Summary Physical Exam Summary: Appearance: During interview he clearly has trouble handling secretions in mouth and throat. Skin: Warm, dry, no obvious rash Eyes: sclera anicteric, no conjunctival pallor ENT: Marked swelling and erythema mainly involving right side of lower face and neck extending to midline, fairly large area of yellow crusting that is fairly moist but no discrete abscess. Neck: Supple, nontender Respiratory: Clear to auscultation, no signs of respiratory distress Cardiovascular: Normal S1, S2. No murmurs. Normal distal pulses in tibial and radial bilaterally. Abdomen: Soft, nontender, normal active bowel sounds present Musculoskeletal: Normal, Strength/ROM Intact Neurological: A&Ox3, awake and alert, mentation is normal, speech is fluent and appropriate Psychiatric: affect is normal, does not appear anxious or depressed Triage Information Reviewed: Yes Vital Signs On Initial Exam: Initial Vitals Temp Pulse Resp BP Pulse Ox 102.7 F 114 17 118/74 94 12/14/18 20:00 12/14/18 20:00 12/14/18 20:00 12/14/18 20:00 12/14/18 20:00 Vital Signs Reviewed: Yes Diagnostics - Vital Signs Vital Signs Temp Pulse Resp BP Pulse Ox 12/14/18 20:00 102.7 F 114 17 118/74 94 - Laboratory Result Diagrams: 12/14/18 20:25 12/14/18 20:25 Lab Statement: Any lab studies that have been ordered have been reviewed, and results considered in the medical decision making process. - Radiology CXR Radiology Interpretation Completed By: ED Physician Summary of Radiographic Findings: no acute disease. Pending official imaging report. - CT Neck CT Interpretation Completed By: Radiologist Summary of CT Findings: 1. Anterior neck cellulitis with no associated abscess. 2. Oral pharyngeal and hypopharyngeal changes with etiologies including post treatment pharyngitis, extension of known tongue neoplasm, or infectious. arthritis. ED physician has reviewed this imaging report. Course/Dx - Course Course Of Treatment: A 68 y/o male accompanied by his presents to [facility] with a chief complaint of a fever today. The physical exam revealed During interview he clearly has trouble handling secretions in mouth and throat. Marked swelling and erythema mainly involving right side of lower face and neck extending to midline, fairly large area of yellow crusting that is fairly moist but no discrete abscess. Blood work and chemistries obtained and are WNL. Neck CT impression: 1. Anterior neck cellulitis with no associated abscess. 2. Oral pharyngeal and hypopharyngeal changes with etiologies including post treatment pharyngitis, extension of known tongue neoplasm, or infectious. arthritis. In the ED course the patient was given Iohexol IV, Sodium Chloride IV and Vancomycin IVPB. CXR was negative. Discussed case with Dr. So who recommended admission. Discussed case with Dr. Fofana who accepted the patient for admission. The patient is agreeable with this plan. - Diagnoses Provider Diagnoses: Cellulitis of neck - Provider Notifications Discussed Care Of Patient With: Quinn So Time Discussed With Above Provider: 20:23 Instructed by Provider To: Other - notified him that the patient is in the ED Discharge - Sign-Out/Discharge Documenting (check all that apply): Patient Departure - admit Patient Received Moderate/Deep Sedation with Procedure: No - Discharge Plan Condition: Fair Disposition: ADMITTED TO [facility] - Billing Disposition and Condition Condition: FAIR Disposition: Admitted to [facility] - Attestation Statements Document Initiated by Genna: Yes Documenting Scribe: Shashank Lane Provider For Whom Genna is Documenting (Include Credential): Agusto Plaza MD Scribramses Attestation: I, Shashank Lane, scribed for Agusto Plaza MD on 12/15/18 at 0513. Scribe Documentation Reviewed: Yes Provider Attestation: The documentation as recorded by the Shashank montiel accurately reflects the service I personally performed and the decisions made by me, Agusto Plaza MD Status of Scribe Document: Viewed Consult Consult: At 23:[address] So, who recommended admission. At 23:[address] Fofana, who accepted the patient for admission.
[2018-12-14] MEDS ORDERED: NS 0.9% 1000 ML** 3,000 ML IV ONE (20:21)
[2018-12-14] MEDS ORDERED: Vancomycin(*) 2,000 MG in NS 0.9% 250 ML* 250 ML IVPB ONE (20:25)
[2018-12-14 20:41] LABS: ABS Lymphocytes 0.3 10^3/ul (1.0-4.8); ABS Monocytes 0.5 10^3/ul (0-0.8); ABS Neutrophils 3.6 10^3/ul (1.5-7.7); Eosinophil % 0.1 %; Hematocrit 27 % (42-52); Hemoglobin 9.4 g/dL (14.0-18.0); Lymphocyte % 6.1 %; Mean Corpuscular HGB Conc 35 g/dL (31-36); Mean Corpuscular Hemoglobin 33 pg (27-31); Mean Corpuscular Volume 94 fL (80-94); Mean Platelet Volume 8.2 fL (7.4-10.4); Platelet Count 166 10^3/uL (150-450); Red Blood Count 2.82 10^6 /uL (4.18-5.48); Red Cell Distribution Width 13 % (10-15); White Blood Count 4.5 10^3/uL (3.5-10.8)
[2018-12-14] MEDS ORDERED: NS 0.9% 250 ML* 250 ML ONE (20:53)
[2018-12-14 20:54] LABS: Activated Partial Thrombo Time 32.9 seconds (26.0-38.0); INR 1.25 (0.82-1.09)
[2018-12-14 20:57] LABS: Albumin 3.6 g/dL (3.2-5.2); Albumin/Globulin Ratio 1.3 (1-3); BUN/Creatinine Ratio 19.6 (8-20); Calcium 8.9 mg/dL (8.6-10.3); EGFR African American 83.7 (>60); EGFR Non-African American 69.1 (>60); Globulin 2.8 g/dL (2-4); Potassium 4.8 mmol/L (3.5-5.0); Total Bilirubin 0.5 mg/dL (0.2-1.0); Total Protein 6.4 g/dL (6.4-8.9)
[2018-12-14 20:59] LABS: Troponin I 0.01 ng/mL (<0.04)
[2018-12-14] MEDS ORDERED: Vancomycin(*) 2,000 MG in NS 0.9% 500 ML* 500 ML IVPB ONE (21:00)
[2018-12-14] MEDS ORDERED: Iohexol 300* (CONTRAST) 10 ML SDV IV ONE (21:12)
[2018-12-15 01:30] LABS: Urine Appearance Clear; Urine Bilirubin Negative (Negative); Urine Blood Negative (Negative); Urine Color Yellow; Urine Glucose Negative (Negative); Urine Ketones Negative (Negative); Urine Nitrite Negative (Negative); Urine Protein Negative (Negative); Urine Specific Gravity 1.013 (1.010-1.030); Urine Urobilinogen Negative (Negative)
[2018-12-15 02:37] LABS: C Reactive Protein 135.91 mg/L (<8.01)
[2018-12-15] MEDS ORDERED: Zolpidem TAB* 5 MG PO ONE (02:56)
[2018-12-15 03:30] LABS: Magnesium 1.7 mg/dL (1.9-2.7)
[2018-12-15] MEDS ORDERED: HYDROcodone/ACET. 7.5/325 LIQ* 15 ML UDC PEG TUBE PRN (03:53)
[2018-12-15] MEDS: cefTRIAXone(*) 1 GM in NS 0.9% 50 ML* 50 ML IVPB SCH (04:48)
[2018-12-15] MEDS: metroNIDAZOLE IV 500 MG/100ML* 500 MG/100 ML BAG IVPB SCH ×3 (05:39→21:34)
[2018-12-15 07:42] LABS: ABS Lymphocytes 0.2 10^3/ul (1.0-4.8); ABS Monocytes 0.5 10^3/ul (0-0.8); ABS Neutrophils 2.4 10^3/ul (1.5-7.7); Eosinophil % 0.1 %; Hematocrit 25 % (42-52); Hemoglobin 8.8 g/dL (14.0-18.0); Lymphocyte % 7.3 %; Mean Corpuscular HGB Conc 36 g/dL (31-36); Mean Corpuscular Hemoglobin 34 pg (27-31); Mean Corpuscular Volume 94 fL (80-94); Mean Platelet Volume 7.9 fL (7.4-10.4); Platelet Count 133 10^3/uL (150-450); Red Blood Count 2.61 10^6 /uL (4.18-5.48); Red Cell Distribution Width 13 % (10-15); White Blood Count 3.1 10^3/uL (3.5-10.8)
[2018-12-15] MEDS ORDERED: Magnesium Sulfate 2 GM IV* 2 GM/50 ML BAG IVPB ONE (07:53)
[2018-12-15 08:03] LABS: Calcium 8.3 mg/dL (8.6-10.3); EGFR African American 97.2 (>60); EGFR Non-African American 80.3 (>60); Potassium 4.4 mmol/L (3.5-5.0)
[2018-12-15] MEDS: Magnesium Oxide TAB* 400 MG SCH ×2 (08:49→21:08)
[2018-12-15] MEDS: Metoprolol Tartrate TAB* 25 MG G TUBE SCH ×2 (08:50→21:08)
[2018-12-15] MEDS: Gabapentin CAP(*) 400 MG PO SCH ×3 (08:51→21:08)
[2018-12-15] MEDS: Apixaban* 5 MG TAB PO SCH ×2 (08:51→21:08)
[2018-12-15] MEDS: Lansoprazole SUSP* ORALSYR 3 MG/ML G TUBE SCH (09:10)
--- NOTE | 2018-12-15 12:33 | HP ---
HISTORY AND PHYSICAL: DATE OF ADMISSION: 12/15/18 ADMITTING PROVIDER: Ismael Fofana M.D. PRIMARY CARE PROVIDER: Dr. Hilliard. OUTPATIENT BRICK MAKER/ONCOLOGIST: Dr. Odell. CHIEF COMPLAINT: Fevers, productive cough. 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 He was started on Jevity tube feeds and for the last 1-1/2 weeks or so has noticed productive cough of whitish phlegm. His chemotherapy regimen was changed from the initial high- dose cisplatin regimen to carboplatin plus likely 5-FU, though that was terminated. The first cycle was terminated early after complications with PICC line leakage. He is now 6 weeks into his radiation therapy. He has been cared for by his sister, Dulce, who noted that he felt warm and has been checking his temperature throughout the day prior to admission (12/14/18) and when it hit 100.5, she presented for further evaluation and by the time he got to [facility] Emergency Room, he was 102.7 and was tachycardic to 117. He was given 3 L normal saline sepsis fluid bolus and started on 2 g of vancomycin for suspicion of right-sided neck cellulitis given some warmth there. There was a CT of the neck with IV contrast that showed anterior neck cellulitis with no associated abscess. There was oropharyngeal and hypopharyngeal changes with the etiologies including post-treatment pharyngitis, extension of known tongue neoplasm, or infectious arthritis. He had no leukocytosis. He was referred to hospitalist service for admission. The sister was also concerned about possible malfunctioning PEG tube and has asked 2 different providers (Dr. Ware and Dr. Brody) to take a look at it over the last 16 days and both thought that it was looking fine. He has had a sore throat for the last 1-1/2 weeks. The patient's main concern presently is inability to get good sleep over the last several days secondary to his increased cough and briefly considers leaving against medical advice so that he can get a good night's rest. 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 ALLERGIES: No known drug allergies. FAMILY HISTORY: His mother of COPD at age 80. Father of cancer; sounds like it was metastatic and potentially lung related; he had been a smoker. His 2 paternal uncles also of cancers within 5 years of his father. A third uncle also had cancer, but that was caught early and treated effectively. SOCIAL HISTORY: The patient is a never smoker, formerly alcohol use of approximately 2 to 3 beers a day, but not recently. He works at [employer]. He desires sister, Dulce Jones, to be his medical surrogate and to be a full code. REVIEW OF SYSTEMS: A complete 14-point review of systems negative, except as per HPI. Denies any abdominal pain, nausea, vomiting, diarrhea, constipation, or dysuria. He does have increased frequency of urination, but only since arrival to the emergency room and getting the 3 L bolus. PHYSICAL EXAMINATION GENERAL APPEARANCE: Chronically ill appearing, sitting on the side of bed. HEENT: Normocephalic, atraumatic. Pupils equally round and reactive to light. Extraocular motions intact. NECK: His right neck is swollen and hyperpigmented with some crusting and slight whitish discharge at one of the creases, slightly warm. He has a slight area of bleeding on his right lower lip and swelling on the inside of his right cheek without obvious drainage. CARDIOVASCULAR: Irregularly irregular, intermittently tachycardic. No murmurs , rubs, or gallops. ABDOMEN: Soft, nontender, nondistended. There is a PEG tube in the epigastric region and some de-epithelizations to the left abdomen with near removal of tape. There is no drainage to the PEG tube. EXTREMITIES: Warm, well perfused, 1+ pitting edema. NEUROLOGIC: Cranial nerves II through XII intact. Moving all extremities. DIAGNOSTIC STUDIES/LAB DATA: Labs: White count 4.5, hemoglobin 9.4, hematocrit 27, platelets 166. INR 1.25. Sodium 131, potassium 4.8, chloride 94 , carbon dioxide 30, BUN 21, creatinine 1.07, glucose 154, lactic acid 1.3. AST 23, ALT 42, alk phos 62. Troponin 0.01. CRP 135.9. Urinalysis within normal limits. Imaging: Chest x-ray, formal read pending, PA and lateral. No clear infiltrate per my read. CT of the neck with IV contrast that demonstrated anterior neck cellulitis with no associated abscess. There are oropharyngeal and hypopharyngeal changes with etiologies including posttreatment pharyngitis, extension of known tongue neoplasm, or infectious arthritis. ASSESSMENT AND PLAN: 1. Pal Florez is a 68-year-old male with past medical history of hypertension, atrial fibrillation, metastatic squamous cell carcinoma of the base of the tongue (ipsilateral level II cervical node and supraclavicular node involvement) who is recently transitioned from high-dose cisplatin to carboplatin plus 5-FU and has gotten a new PEG tube 16 days prior, presenting with fevers and tachycardia, but no leukocytosis. His exam is concerning for potential cellulitis with some erythema and warmth to his right neck, where he has been getting his radiation treatments. Also of concern as the potential etiology is aspiration pneumonia given his new PEG tube and productive cough of whitish sputum that seems temporarily correlated to the PEG tube. He is obviously at high risk for micro aspirations at the very least. I will follow up the formal chest x-ray report. He was started on vancomycin and given 3 L of normal saline substance fluid bolus in the ED. Given my concern for both cellulitis and aspiration pneumonia, I believe I will switch the vancomycin to a combination of ceftriaxone and Flagyl to cover for anaerobes and expanded Gram -negative coverage than the vancomycin will allow. I have added on a CRP and that is elevated to 135.9. He is without lactic acidosis. Gets CBCs daily. Could consider infectious disease consult depending on clinical course and the hematology/oncology service would likely be taking over the case on Sunday if the patient is still here. 2. For his atrial fibrillation, continue his Eliquis 5 mg p.o. b.i.d. via his PEG tube and metoprolol tartrate 12.5 mg p.o. b.i.d. via PEG tube. I am holding his diltiazem 215 mg via PEG tube in the setting of sepsis, but it could be started back at smaller, more frequent dose as the clinical course allows. I am adding on a magnesium level and will replete as necessary to keep it above 2. We will get BMPs daily and hold his potassium daily supplementation , but replete to give that before. 3. For his insomnia in the setting of his worsening cough, which he threatens actually leaving against medical advice from the emergency room, I am going to trial Ambien 5 mg once and try to minimize distractions as much as possible. If he continues to be in the hospital for a prolonged period of time, I have to check to see what the polices are for continuing his radiation treatments, which is given I believe Sunday through Sunday and if so would get Valium p.r.n. before those. He is a full code and he can eat. I am going to restart his Jevity, which he gets bolus 2 cans at 8:00, 2 cans at noon, 2 cans at 5 p.m. , and 1 can at nighttime, but as I said there is some concern that he may have aspiration as the etiology of his sepsis. If this does not improve, we may consider holding or at least reducing volume of these feeds. 4. For DVT prophylaxis, he is on Eliquis. Medical surrogate is his sister, Dulce Jones. [id number]/CPS #: [id number] [facility]
[2018-12-16] MEDS: cefTRIAXone(*) 1 GM in NS 0.9% 50 ML* 50 ML IVPB SCH (05:00)
[2018-12-16] MEDS: metroNIDAZOLE IV 500 MG/100ML* 500 MG/100 ML BAG IVPB SCH ×3 (05:49→20:55)
[2018-12-16 08:05] LABS: ABS Lymphocytes 0.2 10^3/ul (1.0-4.8); ABS Monocytes 0.4 10^3/ul (0-0.8); ABS Neutrophils 1.4 10^3/ul (1.5-7.7); Eosinophil % 0.1 %; Hematocrit 25 % (42-52); Lymphocyte % 10.2 %; Mean Corpuscular HGB Conc 36 g/dL (31-36); Mean Corpuscular Hemoglobin 34 pg (27-31); Mean Corpuscular Volume 95 fL (80-94); Mean Platelet Volume 7.8 fL (7.4-10.4); Platelet Count 120 10^3/uL (150-450); Red Blood Count 2.64 10^6 /uL (4.18-5.48); Red Cell Distribution Width 13 % (10-15)
[2018-12-16 08:23] LABS: BUN/Creatinine Ratio 16.7 (8-20); Calcium 8.7 mg/dL (8.6-10.3); EGFR African American 102.2 (>60); EGFR Non-African American 84.4 (>60); Magnesium 1.7 mg/dL (1.9-2.7); Potassium 4.6 mmol/L (3.5-5.0)
[2018-12-16] MEDS: Metoprolol Tartrate TAB* 25 MG G TUBE SCH ×2 (09:12→20:56)
[2018-12-16] MEDS: Gabapentin CAP(*) 400 MG PO SCH ×3 (09:20→20:57)
[2018-12-16] MEDS: Apixaban* 5 MG TAB PO SCH ×2 (09:20→20:58)
[2018-12-16] MEDS: Magnesium Oxide TAB* 400 MG SCH ×2 (09:21→20:58)
[2018-12-16] MEDS: Lansoprazole SUSP* ORALSYR 3 MG/ML G TUBE SCH (09:24)
--- NOTE | 2018-12-16 09:48 | PN ---
Progress Note - Progress Note Date of Service: 12/16/18 SOAP: Subjective: []Events of overnight reviewed. Exhausted. Just wants to sleep. Frustrated with being in the hospital and need for monitoring, shared room, lack of privacy, etc. Mouth pain and oodynophagia with lots of thick sputum, some blood. Denies cough with swallowing, though more difficult to swallow and painful. Gets coughing fits and this really hurts. Has been using mouth rinses and creams appropriately at home. Medications: Hydrocodone Bitart/Acetaminophen (Nortab 7.5/325 Liq*) 5 ml PEG TUBE Q6H PRN PRN Reason: PAIN Last Admin: 12/15/18 21:24 Dose: 5 ml Apixaban (Eliquis*) 5 mg PO BID [facility] Last Admin: 12/16/18 09:20 Dose: 5 mg Gabapentin (Neurontin Cap(*)) 800 mg PO TID [facility] Last Admin: 12/16/18 09:20 Dose: 800 mg Ceftriaxone Sodium 1 gm/ (Sodium Chloride) 50 mls @ 100 mls/hr IVPB Q24H [facility] Last Admin: 12/16/18 05:00 Dose: 100 mls/hr Metronidazole/Sodium Chloride (Flagyl 500 Mg Ivpb*) 500 mg in 100 mls @ 100 mls /hr IVPB Q8H [facility] Last Admin: 12/16/18 05:49 Dose: 100 mls/hr Lansoprazole (Lansoprazole Susp* Oralsyr) 15 mg G TUBE DAILY [facility] Last Admin: 12/16/18 09:24 Dose: 15 mg Magnesium Oxide (Magox 400 Tab*) 400 mg .SEE ORDER BID [facility] Last Admin: 12/16/18 09:21 Dose: 400 mg Metoprolol Tartrate (Lopressor Tab*) 12.5 mg G TUBE BID [facility] Last Admin: 12/16/18 09:12 Dose: 12.5 mg Objective: [] Vital Signs Temp Pulse Resp BP Pulse Ox 99.2 F 104 20 142/80 100 12/16/18 03:15 12/16/18 03:15 12/16/18 09:20 12/16/18 03:15 12/16/18 03:15 A&Ox3, EOMI, neuro grossly non-focal HRI, apical rate 90-100 LS clear bilat. throughout MMM with mucositis of the right buccal region and ulceration of the soft palate Radiation dermatitis of right lateral and partial anterior neck with sloughing of tissue and excoriation @ the neck fold +BS, obese No edema noted Laboratory Results - last 24 hr 12/16/18 12/16/18 07:48 07:48 WBC 2.0 L RBC 2.64 L Hgb 9.0 L Hct 25 L MCV 95 H MCH 34 H MCHC 36 RDW 13 Plt Count 120 L MPV 7.8 Neut % (Auto) 69.4 Lymph % (Auto) 10.2 Whiteside % (Auto) 20.0 Eos % (Auto) 0.1 Baso % (Auto) 0.3 Absolute Neuts (auto) 1.4 L Absolute Lymphs (auto) 0.2 L Absolute Monos (auto) 0.4 Absolute Eos (auto) 0.0 Absolute Basos (auto) 0.0 Absolute Nucleated RBC 0.0 Nucleated RBC % 0.0 Sodium 134 L Potassium 4.6 Chloride 98 L Carbon Dioxide 29 Anion Gap 7 BUN 15 Creatinine 0.90 Est GFR ( Amer) 102.2 Est GFR (Non-Af Amer) 84.4 BUN/Creatinine Ratio 16.7 Glucose 120 H Calcium 8.7 Magnesium 1.7 L Assessment: []68 yo male with 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 Work-up revealed cellulitis of the neck and concern for aspiration pneumonia with normal ANC on admission. Plan: []1. Fever: inflammatory response secondary to radiation induced dermatitis, however agree completely with treating for secondary cellulitis - recommend continuing IV abx. until cultures cleared, at least 24 hours - if neg. culture tomorrow and remains afebrile d/t home with abx. via PEG to complete 7 day course 2. Radiation dermatitis and mucositis: grade 3 - consistent with tx. expectations, recommend continuing RT - BMX QID rinse and swallow, salt/baking soda rinse at bedside - silvadene to open area (@ crease) BID AFTER RT, eucerin to surrounding areas TID AFTER RT 3. A.Fib: check EKG - goal rate 90s - resume calcium channel rodríguez but will need short acting to give via PEG - cont. anticoagulation 4. Insomnia and fall last night: appears mechanical and not medication induced - recommend trial Restoril as tolerates Valium very well - PT eval and treat 5. BOT cancer: - cont. RT, Valium prior d/t claustrophobia - C3 chemotherapy due 12/23 and as long as culture neg. goal of treating on time - ARF with C1 Cisplatin, C2 Carbo/5FU, complete resolution with Cr @ baseline 0.9, plan Cisplatin with C3 Dispo: cont. inpt. care for IV abx., if cultures neg. can d/c home tomorrow AM
[2018-12-16] MEDS ORDERED: Silver Sulfadiazine 1%* 20 GM TOPICAL SCH (10:30)
[2018-12-16] MEDS ORDERED: Temazepam CAP* 15 MG PO PRN (10:48)
[2018-12-16] MEDS ORDERED: Diltiazem CD CAP* 120 MG SCH (11:00)
[2018-12-16] MEDS: Magic Mouth Was-BEN/MAAL/LIDO SWISH SWAL SCH ×4 (11:45→20:55)
[2018-12-16] MEDS: Diltiazem TAB* 60 MG PEG TUBE SCH ×2 (11:46→18:08)
[2018-12-16] MEDS ORDERED: Diltiazem TAB* 60 MG PO SCH (12:00)
[2018-12-16] MEDS: Moisturizing CREAM* 120 GM JAR TOPICAL SCH ×2 (16:34→20:55)
[2018-12-16] MEDS: Silver Sulfadiazine 1%* 85 GM TOPICAL SCH (21:30)
[2018-12-17] MEDS: Diltiazem TAB* 60 MG PEG TUBE SCH ×3 (00:23→13:09)
[2018-12-17] MEDS: cefTRIAXone(*) 1 GM in NS 0.9% 50 ML* 50 ML IVPB SCH (03:56)
[2018-12-17] MEDS: metroNIDAZOLE IV 500 MG/100ML* 500 MG/100 ML BAG IVPB SCH ×2 (05:17→13:09)
[2018-12-17] MEDS: Gabapentin CAP(*) 400 MG PO SCH ×2 (08:32→13:09)
[2018-12-17] MEDS: Metoprolol Tartrate TAB* 25 MG G TUBE SCH (08:33)
[2018-12-17] MEDS: Magnesium Oxide TAB* 400 MG SCH (08:33)
[2018-12-17] MEDS: Apixaban* 5 MG TAB PO SCH (08:33)
[2018-12-17] MEDS: Diazepam TAB(*) 5 MG G TUBE PRN ×2 (08:40→14:11)
[2018-12-17] MEDS: Lansoprazole SUSP* ORALSYR 3 MG/ML G TUBE SCH (09:15)
[2018-12-17] MEDS: Magic Mouth Was-BEN/MAAL/LIDO SWISH SWAL SCH ×2 (09:15→13:12)
[2018-12-17] MEDS: Silver Sulfadiazine 1%* 85 GM TOPICAL SCH (09:16)
[2018-12-17] MEDS: Moisturizing CREAM* 120 GM JAR TOPICAL SCH ×2 (09:16→14:32)
[2018-12-17 10:14] LABS: ABS Lymphocytes 0.2 10^3/ul (1.0-4.8); ABS Monocytes 0.4 10^3/ul (0-0.8); ABS Neutrophils 1.5 10^3/ul (1.5-7.7); Eosinophil % 0.1 %; Hematocrit 24 % (42-52); Hemoglobin 8.6 g/dL (14.0-18.0); Lymphocyte % 8.7 %; Mean Corpuscular HGB Conc 36 g/dL (31-36); Mean Corpuscular Hemoglobin 33 pg (27-31); Mean Corpuscular Volume 94 fL (80-94); Nucleated Red Blood Cells % 0.3; Red Blood Count 2.58 10^6 /uL (4.18-5.48); Red Cell Distribution Width 13 % (10-15); White Blood Count 2.1 10^3/uL (3.5-10.8)
[2018-12-17 10:31] LABS: Albumin 3.3 g/dL (3.2-5.2); Albumin/Globulin Ratio 1.3 (1-3); BUN/Creatinine Ratio 18.4 (8-20); Calcium 8.6 mg/dL (8.6-10.3); EGFR African American 106.2 (>60); EGFR Non-African American 87.8 (>60); Globulin 2.5 g/dL (2-4); Potassium 4.3 mmol/L (3.5-5.0); Total Bilirubin 0.5 mg/dL (0.2-1.0); Total Protein 5.8 g/dL (6.4-8.9)
[2018-12-17 11:16] LABS: Mean Platelet Volume 7.8 fL (7.4-10.4); Platelet Count 86 10^3/uL (150-450)
--- NOTE | 2018-12-17 11:35 | DS ---
- Discharge Summary Admission Date: 12/14/18 Discharge Date: 12/17/18 Discharge Diagnosis: 1. Fever: resolved, secondary to inflammatory process from tx. and PNA 2. Aspiration pneumonia: secondary to grade 3 mucositis from tx. and associated dysphagia, d/c on Augmentin 3. Radiation Dermatitis: grade 3, consistent with curative intent treatment, addition of silvadene 4. Mucositis: grade 3, continue supportive care 5. A.Fib: rate avg. 110s, cont. current meds and anti-coagulation Discharge Medications: Medication Instructions Recorded Confirmed Type Apixaban* [Eliquis*] 5 mg G TUBE BID 12/14/18 12/14/18 History Gabapentin [Gabapentin 250 mg/5ml] 15 ml G TUBE TID 12/14/18 12/14/18 History Magnesium Oxide TAB* [MagOx 400 400 mg G TUBE BID 12/14/18 12/14/18 History TAB*] Metoprolol Tartrate TAB* 12.5 mg G TUBE BID 12/14/18 12/14/18 History [Lopressor TAB*] Omeprazole 20 mg G TUBE DAILY 12/14/18 12/14/18 History Potassium Chloride [Klor-Con M20] 20 meq G TUBE DAILY 12/14/18 12/14/18 History diazePAM [Valium] 5 mg G TUBE DAILY PRN MDD 5mg 12/14/18 12/14/18 History Amoxicillin/Clavulanate SUSP* 875 mg PEG TUBE BID #20 dose 12/17/18 Rx [Augmentin SUSP*] Diltiazem TAB* [Cardizem 60 MG 60 mg PEG TUBE Q6HR #120 tab 12/17/18 Rx Tab*] Magic Mouth Was-RADHA/MAAL/LIDO* 10 ml SWISH SWAL QID ml 12/17/18 Rx Moisturizing CREAM* [Hydrocerin*] 1 applic TOPICAL TID jar 12/17/18 Rx Silver Sulfadiazine 1%* [SILVadine 1 applic TOPICAL BID #1 tube 12/17/18 Rx 1%*] Disposition: Home Condition: Stable Diet: sips of fluid, Jevity via PEG Activity: as tolerated, fall precautions Hospital Course: Please see admission note for full H&P, however briefly, Mr. 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 He initiated therapy on 11/11/18 with Cisplatin/XRT, unfortunately developing acute renal failure requiring admission on 11/26/18. He received cycle 2 on schedule with Carboplatin/5FU, however this was complicated by A.Fib with RVR managed now with addition of a beta rodríguez. Over the last two weeks he has developed increased dysphagia secondary to mucositis from treatment and is now using his PEG tube for nutrition. Mr. Florez's sister called the oncology team on 12/14 with a fever at which time they were directed to present to the ER. In the ER Mr. Florez's temperature was 102.[address] of the neck was obtained. This revealed cellulitis of the region receiving radiation. He was admitted for IV antibiotics to cover both cellulitis and aspriation pneumonia. He was not neutropenic. Blood cultures were obtained. Mr. Florez has not had any further fevers and his cultures are all negative. He experienced a mechanical fall overnight on 12/15 and a PT eval. yesterday, 12/16, cleared him for any acute needs. Both he and his sister (primary healthcare interpreter) declined further home services. At this time Mr. Florez is stable for discharge home. He likely does not have a cellulitis and rather grade 3 radiation induced dermatitis. He does however have a very high risk for aspiration and will be discharged home on Augmentin via PEG to complete a full 14 days. He will continue daily Radiation. He will follow-up with [facility] on 12/19 @ 0900 with labs and at this time plan will be to continue therapy on-time with Cycle 3 on 12/23. As his kidney function has normalized he will receive Cisplatin with plan for twice weekly labs and hydration. Plan of care was reviewed at length with all questions answered.
[2018-12-17 13:30] VITALS: BP 99/62
== END 2018-12-17 15:00 | disposition home or self-care (01) | DRG 606 ==
LOC: ED 19:46 → MED 12-15 02:55 → OBSVTOIN 12-16 16:00
PROVIDERS: ADMIT Internal Medicine; ATTEND Internal Medicine Hematology & Oncology
PROC: DWY17ZZ Contact Radiation of Head and Neck (ICD-10-PCS; principal; 2018-12-16)
DX: L59.8 Other specified disorders of the skin and subcutaneous tissue related to radiation (principal); J69.0 Pneumonitis due to inhalation of food and vomit; C79.9 Secondary malignant neoplasm of unspecified site; K12.30 Oral mucositis (ulcerative), unspecified; I48.91 Unspecified atrial fibrillation; G47.00 Insomnia, unspecified; W18.30XA Fall on same level, unspecified, initial encounter; Y92.239 Unspecified place in hospital as the place of occurrence of the external cause; C01 Malignant neoplasm of base of tongue; F40.240 Claustrophobia; I10 Essential (primary) hypertension; G47.30 Sleep apnea, unspecified; F41.9 Anxiety disorder, unspecified; Z93.1 Gastrostomy status; Z92.21 Personal history of antineoplastic chemotherapy; Z92.3 Personal history of irradiation; Z79.01 Long term (current) use of anticoagulants
CPT/HCPCS: 36415; 70491; 71046; 77336; 77386; 80048; 80053; 81003; 83605; 83735; 83880; 84484; 85025; 85060; 85610; 85730; 86140; 87040; 93005; 99233; 99239; 99284; A9270-GY; J0696; J3370; J3475; J3490; Q9967

== ENCOUNTER 2019-02-24 14:00 | Inpatient (IN) | payer OTHER ==
--- OUTSIDE RECORDS SUMMARY | 2019-02-24 17:10 | XMS REPORT | Continuity of Care Document ---
:1950 External Reference #:[id number] Author Name Stevo Angeles MD Address [address] [place] [address] Care Team Providers Name Role Phone Juan Hilliard MD - Family Medicine Care Team Information Trade Union Secretary Jeff Brody M.D. Care Team Information Trade Union Secretary [phone] Ladonna Olivares M.D. Care Team Information Trade Union Secretary [phone] Problems Active Problems Provider Date Essential hypertension Stevo Angeles MD Onset: 09/17/2018 Social History Type Date Description Comments Sex Unknown Tobacco Use Start: Unknown Never Smoked Cigarettes Tobacco Use Start: Unknown Never Smoked Cigars Pipe Negative For Never Smoked A Pipe Smokeless Tobacco Never Used Smokeless Tobacco ETOH Use Currently occasionally consumes alcohol Tobacco Use Start: Unknown Patient has never smoked Smoking Status Reviewed: 09/17/18 Patient has never smoked Allergies, Adverse Reactions, Alerts Description No Known Drug Allergies Medications Active Medications SIG Qnty Indications Ordering Provider Date Diltiazem HCL ER bid Unknown 240mg Caps ER 24HR Eliquis Crush And Mix 1 Unknown 5mg Tablets Tablet With 60 ML Of Water Or Apple Juice Twice Daily - Take By Mouth Or Peg Metoprolol Tartrate Take 1 Tablet By Unknown Mouth Two Times 25mg Tablets Daily Omeprazole Take 1 Capsule By Unknown 40mg Mouth Every Day as Capsules DR Directed Gabapentin Take 6ML By Mouth Unknown 250mg/5ML Once Daily To Start, Solution Then Taper Up as Directed To 18ML Three Times Daily as Tolerated Diphenoxylate-Atropi Take 1 Teaspoonful Unknown ne (5ML) By Mouth Three 2.5-0.025mg/5ML Times A Day Liquid Immunizations Description No Information Available Vital Signs Date Vital Result Comment 02/07/2019 9:18am Weight 205.00 lb Weight 92.988 kg Height 70.5 inches 5'10.50" Height in cm's 179.1 cm BMI (Body Mass Index) 29.0 kg/m2 09/17/2018 11:22am Weight 237.00 lb Weight 107.503 kg Height 70.5 inches 5'10.50" Height in cm's 179.1 cm BMI (Body Mass Index) 33.5 kg/m2 Results Test Date Facility Test Result H/L Range Note Laboratory test 10/15/2018 [facility] Point of Care 134 mg/dL High 70-100 1 finding c/o [place] [address] [phone] Laboratory test 09/25/2018 [facility] Surgical SEE RESULT 2 finding c/o Department of [place] [address] [phone] Laboratory test 09/25/2018 [facility] Cytology SEE RESULT 3 finding c/o Department of Laboratories [place] [address] [phone] 1 Fighting Vehicle Infantryman: [id number] 2 SEE RESULT BELOW Name: PAL FLOREZ : [address]: Stevo Angeles MD Acct: [id number] Unit: [id number] AGE: 68 Location: OR Re09/25/18 SEX: M Status: DEP [facility] SPEC: [id number] ALLYSSA: 09/25/18- SUBM DR: Stevo Angeles MD REQ: [id number] RECD: 09/25/18 STATUS: SOUT _ ORDERED: LEVEL [...] 1654 END OF REPORT DEPARTMENT OF PATHOLOGY, [address] [place] [address] Perry Salmeron M.D. Director [facility] # [id number] 3 SEE RESULT BELOW Name: PAL FLOREZ Nena : [address]: Stevo Angeles MD Acct: [id number] Unit: [id number] AGE: 68 Location: OR Re09/25/18 SEX: M Status: DAVONTE [facility] SPEC: [id number] ALLYSSA: 09/25/[address]: Stevo Angeles MD REQ: [id number] RECD: 09/25/18 STATUS: SOUT _ ORDERED: FNA [...] CONTINUED ON NEXT PAGE DEPARTMENT OF PATHOLOGY, [address] [place] [address] Perry Salmeron M.D. Director [facility] # [id number] RUN DATE: 09/27/18 [facility] LAB LIVE PAGE 2 Patient: PAL FLOREZ [id number] (Continued) CLINICAL HISTORY (Continued) CLINICAL HISTORY Right neck mass IMMEDIATE INTERPRETATION Pass 1, and 2-adequate. GROSS DESCRIPTION 1- alcohol fixed slides(s) 2 - passes Needle rinse in formalin solution for cell block. Specomen obtained in O.R. Signed by and Reported on: Perry Salmeron MD 03/08 0829 END OF REPORT DEPARTMENT OF PATHOLOGY, [address] [facility], [place], [place] [address] Perry Salmeron M.D. Director [facility] # [id number] Procedures Date Code Description Status 02/07/2019 73932 Fiberoptic Laryngoscopy Completed 09/25/2018 58775 Laryngoscopy, Direct, Operative, With Biopsy Completed 09/17/2018 78428 Fiberoptic Laryngoscopy Completed Medical Devices Description No Information Available Encounters Type Date Location Provider Dx Diagnosis Office Visit 09/17/2018 aHn,Jyotsna Shukla D37.05 Neoplasm of 11:00a 05/21/07 MD Bridgette uncertain behavior of pharynx R22.1 Localized swelling, mass and lump, neck Assessments Date Code Description Provider 02/07/2019 C01 Malignant neoplasm of base of tongue Stevo Angeles MD 10/01/2018 C80.1 Malignant (primary) neoplasm, unspecified Stevo Angeles MD 09/25/2018 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 [address] [phone] Ladonna Olivares M.D. 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
[2019-02-24] MEDS: NS 0.9% 1000 ML** 1,000 ML IV SCH (18:46)
[2019-02-24] MEDS ORDERED: Metoprolol Tartrate IV* 1 MG/ML 5 ML VIAL IV ONE (19:00)
[2019-02-24] MEDS ORDERED: Metoprolol Tartrate TAB* 25 MG G TUBE ONE (21:00)
[2019-02-24] MEDS: Gabapentin CAP(*) 100 MG G TUBE SCH (23:48)
[2019-02-24] MEDS: Apixaban* 5 MG TAB PO SCH (23:49)
[2019-02-24] MEDS: Acetaminophen ADULT LIQ* 650 MG/20.3 ML UDC G TUBE PRN (23:49)
[2019-02-24] MEDS: Diltiazem TAB* 60 MG PEG TUBE SCH (23:51)
[2019-02-25] MEDS: NS 0.9% 1000 ML** 1,000 ML IV SCH ×2 (05:37→15:50)
[2019-02-25 06:54] LABS: ABS Eosinophils 0.1 10^3/ul (0-0.6); ABS Lymphocytes 0.4 10^3/ul (1.0-4.8); ABS Monocytes 0.5 10^3/ul (0-0.8); ABS Neutrophils 5.6 10^3/ul (1.5-7.7); Eosinophil % 1.4 %; Hematocrit 25 % (42-52); Hemoglobin 8.8 g/dL (14.0-18.0); Mean Corpuscular HGB Conc 35 g/dL (31-36); Mean Corpuscular Hemoglobin 34 pg (27-31); Mean Corpuscular Volume 96 fL (80-94); Mean Platelet Volume 7.8 fL (7.4-10.4); Nucleated Red Blood Cells % 0.1; Platelet Count 273 10^3/uL (150-450); Red Blood Count 2.61 10^6 /uL (4.18-5.48); Red Cell Distribution Width 16 % (10-15); White Blood Count 6.7 10^3/uL (3.5-10.8)
[2019-02-25 06:58] LABS: Albumin 3.5 g/dL (3.2-5.2); Calcium 9.1 mg/dL (8.6-10.3); Magnesium 1.7 mg/dL (1.9-2.7); Potassium 4.1 mmol/L (3.5-5.0); Total Bilirubin 0.4 mg/dL (0.2-1.0)
[2019-02-25 07:04] LABS: Albumin/Globulin Ratio 1.5 (1-3); BUN/Creatinine Ratio 21.4 (8-20); EGFR African American 87.4 (>60); EGFR Non-African American 72.3 (>60); Globulin 2.3 g/dL (2-4); Total Protein 5.8 g/dL (6.4-8.9)
[2019-02-25] MEDS ORDERED: Magnesium Sulf 4 GM/100 ML IV* 4,000 MG/100 ML BAG IVPB ONE (08:46)
[2019-02-25] MEDS ORDERED: NON FORMULARY MED* (Omeprazole [Omeprazole] 40 MG) G TUBE SCH (09:00)
[2019-02-25] MEDS: Gabapentin CAP(*) 100 MG G TUBE SCH ×3 (09:21→21:08)
[2019-02-25] MEDS: Diltiazem TAB* 60 MG PEG TUBE SCH ×3 (09:30→21:08)
[2019-02-25] MEDS: Apixaban* 5 MG TAB PO SCH ×2 (09:30→21:04)
[2019-02-25] MEDS: Metoprolol Tartrate TAB* 25 MG G TUBE SCH ×2 (09:30→21:00)
[2019-02-25] MEDS: Lansoprazole SUSP* ORALSYR 3 MG/ML G TUBE SCH (09:32)
[2019-02-25] MEDS: Acetaminophen ADULT LIQ* 650 MG/20.3 ML UDC G TUBE PRN ×3 (09:37→21:20)
[2019-02-25] MEDS: Magnesium CITRATE* 300 ML BTL G TUBE SCH (09:41)
[2019-02-25] MEDS ORDERED: NS 0.9% 500 ML* 500 ML IV ONE (16:00)
[2019-02-26] MEDS: NS 0.9% 1000 ML** 1,000 ML IV SCH (01:45)
[2019-02-26 08:56] LABS: BUN/Creatinine Ratio 15.3 (8-20); Calcium 8.7 mg/dL (8.6-10.3); EGFR African American 109.1 (>60); EGFR Non-African American 90.2 (>60); Potassium 4.2 mmol/L (3.5-5.0)
[2019-02-26] MEDS: Diltiazem TAB* 60 MG PEG TUBE SCH ×3 (10:00→23:50)
[2019-02-26] MEDS: Acetaminophen ADULT LIQ* 650 MG/20.3 ML UDC G TUBE PRN ×3 (10:00→23:49)
[2019-02-26] MEDS: Metoprolol Tartrate TAB* 25 MG G TUBE SCH (10:00)
[2019-02-26] MEDS: Lansoprazole SUSP* ORALSYR 3 MG/ML G TUBE SCH (10:01)
[2019-02-26] MEDS: Apixaban* 5 MG TAB PO SCH ×2 (10:01→23:50)
[2019-02-26] MEDS: Gabapentin CAP(*) 100 MG G TUBE SCH ×3 (10:01→23:49)
--- NOTE | 2019-02-26 10:01 | PN ---
Progress Note - Progress Note Date of Service: 02/26/19 SOAP: Subjective: still gets very tachycardic on standing/ambulating. does not feel like he is going to pass out any more, but still feels "off". not swallowing and when confronted on why he can not articulate why he is not swallowing other than to say "i guess I am just not pushing myself" denies pain as the cause. denies chest pain. Objective: Vital Signs Temp Pulse Resp BP Pulse Ox 98.7 F 159 16 136/92 100 02/26/19 07:47 02/26/19 09:45 02/26/19 07:47 02/26/19 09:45 02/26/19 07:47 sitting up in nad op-thick secretions, no clear masses neck--tight RT changes on right, mild facial swelling CTA bl irr irr tachy soft nt clean peg no le edema A+O x 3, nonfocal neurological exam Laboratory Results - last 24 hr 02/26/19 08:34 Sodium 131 L Potassium 4.2 Chloride 100 L Carbon Dioxide 24 Anion Gap 7 BUN 13 Creatinine 0.85 Est GFR ( Amer) 109.1 Est GFR (Non-Af Amer) 90.2 BUN/Creatinine Ratio 15.3 Glucose 95 Calcium 8.7 Cortisol 13.42 Acetaminophen (Tylenol Adult Liq*) 650 mg G TUBE Q6H PRN PRN Reason: PAIN - MILD/MODERATE Last Admin: 02/26/19 10:00 Dose: 650 mg Apixaban (Eliquis*) 5 mg PO BID [facility] Last Admin: 02/25/19 21:04 Dose: 5 mg Diltiazem HCl (Cardizem Tab*) 60 mg PEG TUBE TID [facility] Last Admin: 02/25/19 21:08 Dose: 60 mg Gabapentin (Neurontin Cap(*)) 500 mg G TUBE TID [facility] Last Admin: 02/25/19 21:08 Dose: 500 mg Sodium Chloride (Ns 0.9% 1000 Ml) 1,000 mls @ 100 mls/hr IV PER RATE [facility] Last Admin: 02/26/19 01:45 Dose: 100 mls/hr Lansoprazole (Lansoprazole Susp* Oralsyr) 30 mg G TUBE DAILY [facility] Last Admin: 02/25/19 09:32 Dose: 30 mg Magnesium Citrate (Citrate Of Magnesia*) 15 ml G TUBE DAILY [facility] Last Admin: 02/25/19 09:41 Dose: 15 ml Metoprolol Tartrate (Lopressor Tab*) 12.5 mg G TUBE BID [facility] Last Admin: 02/25/19 21:00 Dose: 12.5 mg Assessment: 68 yo M w T2N1 base of tongue CA and chronic afib, sp chemoRT, 8 weeks out from therapy and clinically DARWIN, presenting with afib w RVR on standing. He has been adequately hydrated and has a normal am cortisol and so I do not feel this is dehydration or adrenal insufficiency. He is hesitant to accept increased afib rate control because he feels that this is why his BP is dropping, but he clearly needs better management as he is 130-160 standing/ambulating and becomes hypotensive. I have requested a cardiology consultation. We also discussed at length AGAIN the need to start swallowing, and that the longer that he avoids this the more likely becoming permanently PEG dependant becomes. It is important to note that he is clinically DARWIN right now. Plan: AFib w RVR: cardiology consultation telemetry cont eliquis anemia: likely anemia of chronic disease plus chemotherapy myelosuppression check full anemia panel will transfuse 1 U PRBC to see if helps with heart rate full code
[2019-02-26] MEDS: Magnesium CITRATE* 300 ML BTL G TUBE SCH (10:03)
--- NOTE | 2019-02-26 13:17 | CONS ---
CC: Dr. Ward; Dr. Ladonna Olivares; Dr. Hilliard CARDIOLOGY CONSULTATION REPORT: DATE OF CONSULT: 02/26/19 PRIMARY CARE PROVIDER: Dr. Hilliard. HISTORY OF PRESENT ILLNESS: I was asked by Dr. Olivares to see this 68-year-old male patient who prese nted to the hospital with dizziness, fatigability, known diagnosis of tongue cancer status post compl eted 8 weeks of chemotherapy, known history of atrial fibrillation. I was asked to see him because o f rapid atrial fibrillation and for further management medication palomino for better controlling his tac hycardia. The patient does have known history of atrial fibrillation goes back at least to 2012. I d id see him then and he has been maintained on beta-rodríguez, calcium channel rodríguez and Pradaxa, whic h was switched to Eliquis. The patient does get his medications through PEG tube. He had hard to sw allowing, difficulty in swallowing. He does have a history of systemic arterial hypertension. But h e gives no history of diabetes, no history of myocardial infarction. He gives no history of congesti ve heart failure, no history of hyperlipidemia, no smoking, no drinking, no illicit drug use. He is anemic, which is not new and that could be also playing a factor here in his tachycardia. He gives n o chest pain, no nausea, no vomiting, no hematochezia, no skin rash, no abdominal pain, no syncope is appreciated. He has not been feeling well for the last few days. In the hospital, he has a rapid A Fib especially when he stands up and he feels that his blood pressure goes down and his heart rate go es fast. His review all other systems essentially is negative. PAST MEDICAL HISTORY: History of systemic arterial hypertension, history of tongue cancer status pos t chemotherapy completed. PAST SURGICAL HISTORY: History of eye surgery, ankle right surgery, and tonsillectomy. MEDICATIONS: 1. Tylenol 650 mg q.6 hours. 2. Eliquis 5 mg b.i.d. 3. Digoxin, I just started at 0.25 mg daily. 4. Diltiazem 60 mg 3 times a day. 5. Gabapentin 500 mg. 6. Lansoprazole 30 mg daily. 7. Magnesium 15 mL daily. 8. Metoprolol, I just increased it to 25 mg twice a day. ALLERGIES: No known drug allergies. FAMILY HISTORY: No family history of premature coronary artery disease. SOCIAL HISTORY: He used to drink, but he did cut back. REVIEW OF SYSTEMS: Review all other systems essentially is negative. PHYSICAL EXAM: On exam, he is awake, alert and oriented. He is not in acute distress. He had no sy mptoms of chest pain. His vitals showed his blood pressure to be 113/56, pulse 159, irregular, irreg ular and he is afebrile, temperature 98.7. Head Exam: Normocephalic, atraumatic. Head, Ears, Nose, and Throat: Essentially benign. Neck: Supple. JVP is not elevated. No carotid bruits. No masses in the neck are appreciated. Chest: Clear to auscultation. No rales. No wheezes. No added sound s appreciated. Heart: Irregular, irregular, tachycardic. S1, S2. No added sounds. No gallops. N o rubs. Abdomen: Obese, soft. Positive bowel sounds. Extremities: No edema. No cyanosis. No cl ubbing. Skin exam is normal. Psych: Normal affect and mood. RIVET TESTER: No focal deficits appreciated. DIAGNOSTIC STUDIES/LAB DATA: His labs showed his white blood cells 6.7, hemoglobin 8.8, hematocrit 2 5 and platelets 273. Sodium 131, potassium 4.2, chloride 100, BUN 13, creatinine 0.85, magnesium 1.7 and AST 11, ALT 18. Cortisol 13.4. His chest x-ray that was done on 02/24/19, showed him to have no acute cardiopulmonary disease. EKG was not done today. IMPRESSION: The patient is a 68-year-old male patient with: 1. Known history of a chronic atrial fibrillation, now with rapid tachycardia, atrial fibrillation, which could be multifactorial in nature including his anemia and low magnesium. We will check his th yroid, TSH. 2. Known history of systemic arterial hypertension. 3. Diagnosis with cancer at the base of the tongue. He completed 8 weeks of chemotherapy. 4. Obesity. 5. Possible sleep apnea. 6. Anemia. PLAN: I have discussed him with Dr. Olivares as well as with the patient. I think at the present time we will work around his medications and I did actually increase his metoprolol to 25 mg twice a day. I added digoxin 0.25 mg once a day. I will obtain an echocardiogram to evaluate his left ventricul ar systolic function and any occult valvular disease or pericardial effusion, although he gives no sy mptoms of chest pain. Hydration as you are already doing and replenishing his magnesium as you are a lready doing and checking his TSH as we discussed today. It will be helpful definitely treatment of his anemia. I will defer to you for any blood transfusion if that is needed. I have discussed this plan with the patient and he is willing to proceed. I answered all his concerns or questions up to h is satisfaction. Thank you very much for asking us to participate in the care of this patient. More than half of at [facility] 60 to 65 plus minutes was [id number] education and counseling, and explaining the above to the patient and answering his concerns and the questions. [id number]/[facility] #: [id number]
[2019-02-26 14:04] LABS: % Iron Saturation 8 % (15-55); Iron 22 ug/dL (50-212); Total Iron Binding Capacity 270 mcg/dL (250-450); Transferrin 193 mg/dL (203-362)
[2019-02-26 14:19] LABS: TSH (Thyroid Stimulating Horm) 2.38 mcIU/mL (0.34-5.60)
[2019-02-26 14:26] LABS: Ferritin 386.6 ng/mL (24-336)
--- NOTE | 2019-02-26 15:45 | ECHO ---
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 History: Tongue cancer, chemo, anemia. Atrial fibrillation. Conclusions Summary: - Left ventricle: Systolic function is at the lower limits of normal. The estimated ejection fraction is 45-50%. - Left atrium: The atrium is severely dilated. - Right atrium: The atrium is mildly dilated. - Mitral valve: There is trace regurgitation. - Tricuspid valve: There is trace regurgitation. - Baseline a fib C/t 11/12/2012, unable to make left ventricle ejection fraction estimate then although probably was lower limit of normal. A fib is not new. Study data: Transthoracic echocardiogram. Procedure: Transthoracic echocardiography was performed. Image quality was adequate. Complete 2D, spectral Doppler, and color flow Doppler. Location: Bedside. Patient status: Inpatient. Patient room number: 415 02. Rhythm: Atrial fibrillation. Findings Left ventricle: The cavity size is normal. Wall thickness is mildly increased. Systolic function is at the lower limits of normal. The estimated ejection fraction is 45-50%. Wall motion is normal; there are no regional wall motion abnormalities. Left ventricular diastolic function parameters are indeterminate. Right ventricle: The cavity size is normal. Systolic function is normal. Left atrium: The atrium is severely dilated. Right atrium: The atrium is mildly dilated. Mitral valve: The Mitral valve annulus appears calcified. The leaflets are mildly thickened. There is no evidence of stenosis. There is trace regurgitation. Aortic valve: The valve is trileaflet. The leaflets are normal thickness. There is no evidence of stenosis. There is no significant regurgitation. Tricuspid valve: The leaflets are normal thickness. There is no evidence of stenosis. There is trace regurgitation. Pulmonic valve: The leaflets are normal thickness. There is no evidence of stenosis. There is no significant regurgitation. Aorta: The aortic root appears normal. The aortic arch appears normal. Pericardium: There is no significant pericardial effusion. Pulmonary arteries: Not well visualized. Systolic pressure can not be accurately estimated. Systemic veins: Inferior vena cava: The vessel is normal in size. There is (>= 50%) respiratory change in the IVC dimension. Measurements Left ventricle Value Ref Aortic valve Value Ref FRANKLIN, LAX 5.6 cm 4.2 - 5.8 Abner diam, ED 2.3 cm ---- ESD, LAX (H) 4.2 cm 2.5 - 4.0 Peak v, S 1.05 m/sec ---- FS, LAX (L) 24 % 25 - 43 Peak grad, S 4.0 mm Hg ---- PW, ED, LAX 0.9 cm 0.6 - 1.0 EF (L) 47 % 52 - 72 Mitral valve Value Ref E', lat abner, TDI 12.7 cm/sec >=10.0 Peak E 0.69 m/sec ---- E/e', lat abner, 5 Peak A 0.04 m/sec ---- TDI Decel time 193 ms ---- E', med abner, TDI 9.5 cm/sec >=7.0 Peak E/A ratio 19.6 ---- E/e', med abner, 7 TDI Pulmonic valve Value Ref E', avg, TDI 11.1 cm/sec Peak v, S 0.53 m/sec ---- E/e', avg, TDI 6 <=14 Peak grad, S 1.0 mm Hg ---- LVOT Value Ref Aortic root Value Ref Peak elsie, S 0.84 m/sec Root diam 3.2 cm <4.2 Ventricular septum Value Ref Ascending aorta Value Ref IVS, ED (H) 1.2 cm 0.6 - 1.0 AAo AP diam, S 3.0 cm ---- Right ventricle Value Ref Aortic arch Value Ref FRANKLIN, LAX 3.3 cm Arch diam 3.1 cm ---- FRANKLIN minor ax, A4C 3.1 cm 1.9 - 3.5 mid Decending aorta Value Ref Kyler peak elsie 0.67 m/sec ---- Left atrium Value Ref AP dim, ES (H) 4.40 cm 3.00 - Inferior vena cava Value Ref 4.00 Diam 2.0 cm ---- ML dim, A4C 4.9 cm SI dim, A4C 7.1 cm Vol/bsa, ES, A/L (H) 54 ml/m^2 16 - 34 Right atrium Value Ref SI dim, ES (H) 5.5 cm 3.4 - 5.3 ML dim, ES, A4C 4.1 cm 2.6 - 4.4 Estimated RAP 8 mm Hg Legend: (L) and (H) ronny values outside specified reference range. Prepared and electronically signed by Tray Ward MD 02/26/2019 15:44
[2019-02-26] MEDS ORDERED: Digoxin TAB* 0.25 MG PO SCH (17:00)
[2019-02-26] MEDS: Metoprolol Tartrate TAB* 25 MG PO SCH (23:50)
[2019-02-27] MEDS: NS 0.9% 1000 ML** 1,000 ML IV SCH ×2 (05:58→17:09)
[2019-02-27] MEDS: Apixaban* 5 MG TAB PO SCH ×2 (09:55→20:57)
[2019-02-27] MEDS: Gabapentin CAP(*) 100 MG G TUBE SCH ×3 (09:55→20:56)
[2019-02-27] MEDS: Metoprolol Tartrate TAB* 25 MG PO SCH ×2 (09:56→20:57)
[2019-02-27] MEDS: Diltiazem TAB* 60 MG PEG TUBE SCH ×3 (09:56→20:57)
[2019-02-27] MEDS: Lansoprazole SUSP* ORALSYR 3 MG/ML G TUBE SCH (09:57)
[2019-02-27] MEDS: Magnesium CITRATE* 300 ML BTL G TUBE SCH ×2 (09:57→20:57)
--- NOTE | 2019-02-27 10:15 | PN ---
Progress Note - Progress Note Date of Service: 02/27/19 SOAP: Subjective: []Feeling well this AM. "I think I've turned the corner." Has been working with PT. No acute OT needs. Knows he'll need some help on d/c, may be open to [facility]. Medications: Acetaminophen (Tylenol Adult Liq*) 650 mg G TUBE Q6H PRN PRN Reason: PAIN - MILD/MODERATE Last Admin: 02/27/19 10:26 Dose: 650 mg Apixaban (Eliquis*) 5 mg PO BID [facility] Last Admin: 02/27/19 09:55 Dose: 5 mg Digoxin (Lanoxin Tab*) 0.25 mg PO 1700 [facility] Last Admin: 02/26/19 16:18 Dose: 0.25 mg Diltiazem HCl (Cardizem Tab*) 60 mg PEG TUBE TID [facility] Last Admin: 02/27/19 09:56 Dose: 60 mg Gabapentin (Neurontin Cap(*)) 500 mg G TUBE TID [facility] Last Admin: 02/27/19 09:55 Dose: 500 mg Sodium Chloride (Ns 0.9% 1000 Ml) 1,000 mls @ 100 mls/hr IV PER RATE [facility] Last Admin: 02/27/19 05:58 Dose: 100 mls/hr Lansoprazole (Lansoprazole Susp* Oralsyr) 30 mg G TUBE DAILY [facility] Last Admin: 02/27/19 09:57 Dose: 30 mg Magnesium Citrate (Citrate Of Magnesia*) 15 ml G TUBE DAILY [facility] Last Admin: 02/27/19 09:57 Dose: 15 ml Metoprolol Tartrate (Lopressor Tab*) 25 mg PO BID [facility] Last Admin: 02/27/19 09:56 Dose: 25 mg Objective: [] Vital Signs Temp Pulse Resp BP Pulse Ox 98.1 F 67 16 138/72 100 02/27/19 07:15 02/27/19 07:15 02/27/19 09:55 02/27/19 07:15 02/27/19 07:15 A&Ox3, communicating clearly HRI, AFib on tele - RVR last night, none this AM LS clear +BS, soft and non-tender +Thick mucous Laboratory Results - last 24 hr 02/25/19 02/26/19 02/26/19 06:01 13:32 17:12 WBC RBC Hgb Hct MCV MCH MCHC RDW Plt Count MPV Neut % (Auto) Lymph % (Auto) Gordon % (Auto) Eos % (Auto) Baso % (Auto) Absolute Neuts (auto) Absolute Lymphs (auto) Absolute Monos (auto) Absolute Eos (auto) Absolute Basos (auto) Absolute Nucleated RBC Nucleated RBC % Sodium Potassium Chloride Carbon Dioxide Anion Gap BUN Creatinine Est GFR ( Amer) Est GFR (Non-Af Amer) BUN/Creatinine Ratio Glucose Calcium Magnesium Iron 22 L TIBC 270 % Saturation 8 L Unsat Iron Binding < 255 Transferrin 193 L Ferritin 386.6 H Total Bilirubin AST ALT Alkaline Phosphatase Total Protein Albumin Globulin Albumin/Globulin Ratio Vitamin B12 848 TSH 2.38 Blood Type AB Positive Antibody Screen Negative Crossmatch See Detail Transfusion React Rpt Donor Unit # [id number] Post-Trans Blood Type AB Positive Post-Trans EVANGELIST Negative 02/27/19 02/27/19 10:28 10:28 WBC 7.6 RBC 3.16 L Hgb 10.2 L Hct 30 L MCV 94 MCH 32 H MCHC 34 RDW 17 H Plt Count 277 MPV 7.5 Neut % (Auto) 85.9 Lymph % (Auto) 5.5 Gordon % (Auto) 6.2 Eos % (Auto) 2.0 Baso % (Auto) 0.4 Absolute Neuts (auto) 6.5 Absolute Lymphs (auto) 0.4 L Absolute Monos (auto) 0.5 Absolute Eos (auto) 0.1 Absolute Basos (auto) 0.0 Absolute Nucleated RBC 0.0 Nucleated RBC % 0.0 Sodium 131 L Potassium 3.9 Chloride 96 L Carbon Dioxide 28 Anion Gap 7 BUN 11 Creatinine 0.79 Est GFR ( Amer) 118.7 Est GFR (Non-Af Amer) 98.1 BUN/Creatinine Ratio 13.9 Glucose 97 Calcium 9.0 Magnesium 1.6 L Iron TIBC % Saturation Unsat Iron Binding Transferrin Ferritin Total Bilirubin 0.40 AST 11 L ALT 15 Alkaline Phosphatase 83 Total Protein 6.3 L Albumin 3.5 Globulin 2.8 Albumin/Globulin Ratio 1.3 Vitamin B12 TSH Blood Type Antibody Screen Crossmatch Transfusion React Rpt Donor Unit # Post-Trans Blood Type Post-Trans EVANGELIST Assessment: []68 yo M w T2N1 base of tongue CA and chronic afib, sp chemoRT, 8 weeks out from therapy clinically DARWIN, presenting to the office with c/o dizzinesss. He was admitted for dehydration and was found to have recurrent RVR (with known chronic A.Fib despite antiarrhythmics - though to note his Metoprolol was decreased from 25 mg to 12.5 mg BID d/t pt. preference as an outpatient). Cardiology consult yesterday resumed increased Metoprolol dose. Plan: AFib w RVR: cardiology input appreciated telemetry cont eliquis Dehydration: improved with fluids, decrease rate anemia: Likely anemia of chronic disease plus chemotherapy myelosuppression improved post transfusion and will cont. to monitor Hypomagnesemia: Renal wasting s/p Cisplatin tx. IV replacement and increase PEG dose Goal of >/= 1.8 Dysphagia: Cont. sips, goal of q1hr Cont. speech therapy Weakness: Cont PT Dipso: if HR stable over next 24 hours d/c tomorrow, either home with service or short [facility] stay
[2019-02-27] MEDS: Acetaminophen ADULT LIQ* 650 MG/20.3 ML UDC G TUBE PRN ×2 (10:26→17:09)
[2019-02-27 10:47] LABS: ABS Eosinophils 0.1 10^3/ul (0-0.6); ABS Lymphocytes 0.4 10^3/ul (1.0-4.8); ABS Monocytes 0.5 10^3/ul (0-0.8); ABS Neutrophils 6.5 10^3/ul (1.5-7.7); Hematocrit 30 % (42-52); Hemoglobin 10.2 g/dL (14.0-18.0); Lymphocyte % 5.5 %; Mean Corpuscular HGB Conc 34 g/dL (31-36); Mean Corpuscular Hemoglobin 32 pg (27-31); Mean Corpuscular Volume 94 fL (80-94); Mean Platelet Volume 7.5 fL (7.4-10.4); Platelet Count 277 10^3/uL (150-450); Red Blood Count 3.16 10^6 /uL (4.18-5.48); Red Cell Distribution Width 17 % (10-15); White Blood Count 7.6 10^3/uL (3.5-10.8)
[2019-02-27 11:09] LABS: Albumin 3.5 g/dL (3.2-5.2); Albumin/Globulin Ratio 1.3 (1-3); BUN/Creatinine Ratio 13.9 (8-20); EGFR African American 118.7 (>60); EGFR Non-African American 98.1 (>60); Globulin 2.8 g/dL (2-4); Magnesium 1.6 mg/dL (1.9-2.7); Potassium 3.9 mmol/L (3.5-5.0); Total Bilirubin 0.4 mg/dL (0.2-1.0); Total Protein 6.3 g/dL (6.4-8.9)
[2019-02-27] MEDS: Potassium Chloride* LIQUID 20 MEQ/15 ML UDC PO SCH (14:53)
[2019-02-27] MEDS ORDERED: Digoxin TAB* 0.125 MG PO SCH (17:00)
[2019-02-28 06:39] LABS: ABS Basophils 0.1 10^3/ul (0-0.2); ABS Eosinophils 0.2 10^3/ul (0-0.6); ABS Lymphocytes 0.3 10^3/ul (1.0-4.8); ABS Monocytes 0.6 10^3/ul (0-0.8); ABS Neutrophils 7.6 10^3/ul (1.5-7.7); Eosinophil % 2.2 %; Hematocrit 30 % (42-52); Hemoglobin 10.2 g/dL (14.0-18.0); Lymphocyte % 3.9 %; Mean Corpuscular HGB Conc 35 g/dL (31-36); Mean Corpuscular Hemoglobin 33 pg (27-31); Mean Corpuscular Volume 95 fL (80-94); Mean Platelet Volume 8.1 fL (7.4-10.4); Platelet Count 269 10^3/uL (150-450); Red Blood Count 3.11 10^6 /uL (4.18-5.48); Red Cell Distribution Width 17 % (10-15); White Blood Count 8.7 10^3/uL (3.5-10.8)
[2019-02-28 06:57] LABS: BUN/Creatinine Ratio 19.4 (8-20); Calcium 9.1 mg/dL (8.6-10.3); EGFR African American 132.2 (>60); EGFR Non-African American 109.2 (>60); Magnesium 1.7 mg/dL (1.9-2.7); Potassium 4.2 mmol/L (3.5-5.0)
[2019-02-28 07:05] LABS: Digoxin 0.5 ng/ml (0.8-2.0)
[2019-02-28] MEDS ORDERED: Digoxin IV* 0.5 MG/2 ML AMP (0.25 MG/ML) IV SLOW PU ONE (08:07)
[2019-02-28] MEDS: Metoprolol Tartrate TAB* 25 MG PO SCH ×2 (09:24→22:20)
[2019-02-28] MEDS: Apixaban* 5 MG TAB PO SCH ×2 (09:24→22:20)
[2019-02-28] MEDS: Diltiazem TAB* 60 MG PEG TUBE SCH ×3 (09:24→22:20)
[2019-02-28] MEDS: Potassium Chloride* LIQUID 20 MEQ/15 ML UDC PO SCH (09:25)
[2019-02-28] MEDS: Magnesium CITRATE* 300 ML BTL G TUBE SCH ×2 (09:25→22:21)
[2019-02-28] MEDS: Lansoprazole SUSP* ORALSYR 3 MG/ML G TUBE SCH (09:25)
[2019-02-28] MEDS: Gabapentin CAP(*) 100 MG G TUBE SCH ×3 (09:28→22:20)
[2019-02-28] MEDS ORDERED: Magnesium Sulfate IV* 3 GM in NS 0.9% 100 ML* 100 ML IVPB ONE (09:44)
--- NOTE | 2019-02-28 09:44 | PN ---
Progress Note - Progress Note Date of Service: 02/28/19 SOAP: Subjective: []Feeling better today. Was able to walk yesterday w/o feeling dizzy. No SOB. Has never had palpetations. using PEG for nutrition, eating very little. trying sips. planning to go to [facility] on discharge for a week or so. Acetaminophen (Tylenol Adult Liq*) 650 mg G TUBE Q6H PRN PRN Reason: PAIN - MILD/MODERATE Last Admin: 02/27/19 17:09 Dose: 650 mg Apixaban (Eliquis*) 5 mg PO BID [facility] Last Admin: 02/28/19 09:24 Dose: 5 mg Digoxin (Lanoxin Tab*) 0.125 mg PO Q48H [facility] Last Admin: 02/27/19 17:22 Dose: 0.125 mg Diltiazem HCl (Cardizem Tab*) 60 mg PEG TUBE TID [facility] Last Admin: 02/28/19 09:24 Dose: 60 mg Gabapentin (Neurontin Cap(*)) 500 mg G TUBE TID [facility] Last Admin: 02/28/19 09:28 Dose: 500 mg Sodium Chloride (Ns 0.9% 1000 Ml) 1,000 mls @ 50 mls/hr IV PER RATE [facility] Last Admin: 02/27/19 17:09 Dose: 50 mls/hr Lansoprazole (Lansoprazole Susp* Oralsyr) 30 mg G TUBE DAILY [facility] Last Admin: 02/28/19 09:25 Dose: 30 mg Magnesium Citrate (Citrate Of Magnesia*) 30 ml G TUBE BID [facility] Last Admin: 02/28/19 09:25 Dose: 30 ml Metoprolol Tartrate (Lopressor Tab*) 25 mg PO BID [facility] Last Admin: 02/28/19 09:24 Dose: 25 mg Potassium Chloride (Potassium Chloride Liquid) 20 meq PO DAILY [facility] Last Admin: 02/28/19 09:25 Dose: 20 meq Objective: [] Vital Signs Temp Pulse Resp BP Pulse Ox 97.4 F 94 20 134/68 100 02/28/19 07:27 02/28/19 07:27 02/28/19 09:28 02/28/19 07:27 02/28/19 07:27 HEENT: edema, erythema after XRT, OM moist CTA Irregular and in 80s on exam, no murmur PET, NT ND +BS Ext tr edeam Neuro non focal, AAOx3 Assessment: []68 yo M w T2N1 base of tongue CA and chronic afib, sp chemoRT, 8 weeks out from therapy clinically DARWIN, presented to the office with RVR c/o dizzinesss. In hospital has had increase metoprolol and now added Dig, HR improved. Plan: 1. AFib w RVR: Cardiology input appreciated - Digoxin and Metoprolol 25 mg peg bid - Cont Eliquis - Quesion discharge today or Sat, d/w cardiology 2. Dehydration. Improved - Stop IVF 3. FEN/GI. PEG feeds, follow lytes - Mg 3 G IV today 4. Anemia, follow 5. Dysphagia: - Cont. sips, goal of q1hr - Cont. speech therapy 6. Weakness: - Cont PT and NHP
[2019-02-28] MEDS: Acetaminophen ADULT LIQ* 650 MG/20.3 ML UDC G TUBE PRN ×2 (14:25→22:21)
[2019-02-28] MEDS: NS 0.9% 1000 ML** 1,000 ML IV SCH (18:42)
[2019-03-01 07:00] LABS: ABS Eosinophils 0.2 10^3/ul (0-0.6); ABS Lymphocytes 0.4 10^3/ul (1.0-4.8); ABS Monocytes 0.6 10^3/ul (0-0.8); ABS Neutrophils 6.5 10^3/ul (1.5-7.7); Eosinophil % 2.6 %; Hematocrit 31 % (42-52); Hemoglobin 10.9 g/dL (14.0-18.0); Lymphocyte % 5.5 %; Mean Corpuscular HGB Conc 35 g/dL (31-36); Mean Corpuscular Hemoglobin 33 pg (27-31); Mean Corpuscular Volume 95 fL (80-94); Mean Platelet Volume 7.5 fL (7.4-10.4); Nucleated Red Blood Cells % 0.1; Platelet Count 296 10^3/uL (150-450); Red Blood Count 3.26 10^6 /uL (4.18-5.48); Red Cell Distribution Width 17 % (10-15); White Blood Count 7.8 10^3/uL (3.5-10.8)
[2019-03-01 07:18] LABS: Albumin 3.6 g/dL (3.2-5.2); Albumin/Globulin Ratio 1.3 (1-3); BUN/Creatinine Ratio 18.3 (8-20); Calcium 9.1 mg/dL (8.6-10.3); EGFR African American 134.3 (>60); Globulin 2.8 g/dL (2-4); Potassium 4.2 mmol/L (3.5-5.0); Total Bilirubin 0.3 mg/dL (0.2-1.0); Total Protein 6.4 g/dL (6.4-8.9)
[2019-03-01] MEDS: Apixaban* 5 MG TAB PO SCH (10:28)
[2019-03-01] MEDS: Gabapentin CAP(*) 100 MG G TUBE SCH ×2 (10:28→14:46)
[2019-03-01] MEDS: Metoprolol Tartrate TAB* 25 MG PO SCH (10:30)
[2019-03-01] MEDS: Lansoprazole SUSP* ORALSYR 3 MG/ML G TUBE SCH (10:30)
[2019-03-01] MEDS: Diltiazem TAB* 60 MG PEG TUBE SCH ×2 (10:30→14:46)
[2019-03-01] MEDS: Potassium Chloride* LIQUID 20 MEQ/15 ML UDC PO SCH (10:31)
[2019-03-01] MEDS: Magnesium CITRATE* 300 ML BTL G TUBE SCH (10:39)
[2019-03-01] MEDS: Acetaminophen ADULT LIQ* 650 MG/20.3 ML UDC G TUBE PRN ×2 (10:39→14:54)
--- NOTE | 2019-03-01 11:05 | PN ---
Progress Note - Progress Note Date of Service: 03/01/19 SOAP: Subjective: []Did well yesterday, not dizzy walking around. Feeling well overall. Ok to go home and has friend that will help him. Acetaminophen (Tylenol Adult Liq*) 650 mg G TUBE Q6H PRN PRN Reason: PAIN - MILD/MODERATE Last Admin: 03/01/19 10:39 Dose: 650 mg Apixaban (Eliquis*) 5 mg PO BID [facility] Last Admin: 03/01/19 10:28 Dose: 5 mg Digoxin (Lanoxin Tab*) 0.125 mg PO Q48H [facility] Last Admin: 02/27/19 17:22 Dose: 0.125 mg Diltiazem HCl (Cardizem Tab*) 60 mg PEG TUBE TID [facility] Last Admin: 03/01/19 10:30 Dose: 60 mg Gabapentin (Neurontin Cap(*)) 500 mg G TUBE TID [facility] Last Admin: 03/01/19 10:28 Dose: 500 mg Sodium Chloride (Ns 0.9% 1000 Ml) 1,000 mls @ 50 mls/hr IV PER RATE [facility] Last Admin: 02/28/19 18:42 Dose: 50 mls/hr Lansoprazole (Lansoprazole Susp* Oralsyr) 30 mg G TUBE DAILY [facility] Last Admin: 03/01/19 10:30 Dose: 30 mg Magnesium Citrate (Citrate Of Magnesia*) 30 ml G TUBE BID [facility] Last Admin: 03/01/19 10:39 Dose: 30 ml Metoprolol Tartrate (Lopressor Tab*) 25 mg PO BID [facility] Last Admin: 03/01/19 10:30 Dose: 25 mg Potassium Chloride (Potassium Chloride Liquid) 20 meq PO DAILY [facility] Last Admin: 03/01/19 10:31 Dose: 20 meq Objective: [] Vital Signs Temp Pulse Resp BP Pulse Ox 97.9 F 96 18 143/82 100 03/01/19 07:15 03/01/19 07:15 03/01/19 10:28 03/01/19 07:15 03/01/19 07:15 Telemetry negative. 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 In hospital has had increase metoprolol and now added Dig, HR improved. Plan: 1. AFib w RVR: Cardiology input appreciated - Digoxin and Metoprolol 25 mg peg bid - Cont Eliquis - Quesion today 2. Dehydration. Improved - Stop IVF 3. FEN/GI. PEG feeds, follow up Sunday for IVF 4. Anemia, follow 5. disp home today
[2019-03-01 11:06] VITALS: BP 148/60
--- NOTE | 2019-03-01 13:30 | DS ---
DISCHARGE SUMMARY: DATE OF ADMISSION: 02/26/19 DATE OF DISCHARGE: 03/01/19 DISCHARGE DIAGNOSES: 1. Atrial fibrillation. 2. History of head and neck cancer, PEG tube. 3. Dizziness. HOSPITAL COURSE: He presented with dizziness and shortness of breath, was found to have atrial fibri llation with rapid ventricular response. He also had decreased electrolytes. He had electrolyte rep letion. He had repeat echocardiogram that showed LV function at 45% to 50% and AFib consistent with baseline. He had been on metoprolol 25 mg twice a day, was decreased to 12.5 mg twice a day during h is prior treatment for head and neck cancer. The metoprolol was increased back to 25 mg p.o. b.i.d., he was continued on his diltiazem and digoxin was added. He was in AFib, but had rate controlled do wn to 95 to 100. In the last 24 hours, he has had no episodes of tachycardia. He had 1- to 2-second pause yesterday that was asymptomatic. No pauses in the last 24 hours. Electrolytes were repleted and today he has a potassium of 4.2 and magnesium of 2.0. He has been hyp onatremic, which has persistent through this admission. He is eating very little, does take sips of water. He is using his PEG tube for nutrition. Discharge home today. He will follow up on Sunday for IV fluids and will see Dr. Olivares next week. MEDICATIONS ON DISCHARGE: 1. Eliquis 5 mg p.o. b.i.d. 2. Diltiazem 60 mg p.o. t.i.d. 3. Gabapentin 250 mg per 5 mL, 18 mL PEG tube t.i.d. 4. Magnesium 300 mL, 15 mL daily. 5. Lactulose 237 cc as needed daily. 6. Metoprolol 25 mg p.o. b.i.d. 7. Omeprazole 40 mg p.o. daily. CONDITION ON DISCHARGE: Stable and no studies are pending. [id number]/[facility] #: [id number]
== END 2019-03-01 15:15 | disposition home health service (06) | DRG 309 ==
LOC: MED 14:00 → OBSVTOIN 02-26 14:00
PROVIDERS: ADMIT Internal Medicine Hematology & Oncology; ATTEND Internal Medicine Hematology & Oncology
PROC: 30233N1 Transfusion of Nonautologous Red Blood Cells into Peripheral Vein, Percutaneous Approach (ICD-10-PCS; principal; 2019-02-26)
DX: I48.20 Chronic atrial fibrillation, unspecified (principal); E87.1 Hypo-osmolality and hyponatremia; E86.0 Dehydration; M19.90 Unspecified osteoarthritis, unspecified site; F32.9 Major depressive disorder, single episode, unspecified; I10 Essential (primary) hypertension; D64.9 Anemia, unspecified; E66.9 Obesity, unspecified; R13.10 Dysphagia, unspecified; E83.42 Hypomagnesemia; Z68.26 Body mass index [BMI] 26.0-26.9, adult; Z93.1 Gastrostomy status; Z85.810 Personal history of malignant neoplasm of tongue; Z79.01 Long term (current) use of anticoagulants
CPT/HCPCS: 36415; 71046; 80048; 80053; 80162; 82533; 82607; 82728; 83540; 83550; 83735; 84443; 85025; 86078; 86850; 86900; 86901; 86922; 93005; 93306; 96365; 96366; 96375; 99219; 99232; 99233; 99239; A9270-GY; G0378; G8978-GP-CI; G8978-GP-CK; G8979-GP-CH; G8979-GP-CI; J1160; J3475; J3490; P9040

== ENCOUNTER 2019-03-16 15:31 | Emergency (ER) | payer OTHER ==
[2019-03-16 18:56] LABS: ABS Basophils 0.1 10^3/ul (0-0.2); ABS Eosinophils 0.3 10^3/ul (0-0.6); ABS Lymphocytes 0.3 10^3/ul (1.0-4.8); ABS Monocytes 0.5 10^3/ul (0-0.8); ABS Neutrophils 4.9 10^3/ul (1.5-7.7); Eosinophil % 4.9 %; Hematocrit 34 % (42-52); Hemoglobin 11.3 g/dL (14.0-18.0); Lymphocyte % 4.5 %; Mean Corpuscular HGB Conc 34 g/dL (31-36); Mean Corpuscular Hemoglobin 32 pg (27-31); Mean Corpuscular Volume 95 fL (80-94); Mean Platelet Volume 8.1 fL (7.4-10.4); Nucleated Red Blood Cells % 0.3; Platelet Count 289 10^3/uL (150-450); Red Blood Count 3.56 10^6 /uL (4.18-5.48); Red Cell Distribution Width 16 % (10-15); White Blood Count 6.1 10^3/uL (3.5-10.8)
[2019-03-16 19:13] LABS: Albumin 4.1 g/dL (3.2-5.2); Albumin/Globulin Ratio 1.2 (1-3); BUN/Creatinine Ratio 23.2 (8-20); Calcium 9.8 mg/dL (8.6-10.3); EGFR African American 56.1 (>60); EGFR Non-African American 46.3 (>60); Globulin 3.5 g/dL (2-4); Magnesium 2.2 mg/dL (1.9-2.7); Potassium 4.6 mmol/L (3.5-5.0); Total Bilirubin 0.5 mg/dL (0.2-1.0); Total Protein 7.6 g/dL (6.4-8.9)
--- NOTE | 2019-03-16 19:50 | ED ---
Dizziness - HPI Summary HPI Summary: Pt is a 69 y/o M presenting to the ED with a chief complaint of dizziness. He states he has been having episodes of dizziness whenever he tries to stand up and walk around, and has had multiple near-syncopal episodes. He describes it as lightheadedness, and states it feels like hes swimming. He notes hx of AFib and HTN, and that he recently finished chemotherapy/radiation. He denies fever, changes in vision, or headache. Sx alleviated by rest/lying down. - History Of Current Complaint Chief Complaint: EDDizziness Stated Complaint: DIZZINESS PER PT Time Seen by Provider: 03/16/19 19:06 Hx Obtained From: Patient Onset/Duration: Suddenly Timing: Intermittent Episode Lasting - minutes Severity Initially: Moderate Severity Currently: None Character: Lightheaded, Dizzy Aggravating Factor(s): Exertion, Supine To Erect Alleviating Factor(s): Rest, Lying Down Associated Signs And Symptoms: Positive: Unsteady Gait. Negative: Visual Changes, Fever, Other: - headache - Allergies/Home Medications Allergies/Adverse Reactions: Allergies Allergy/AdvReac Type Severity Reaction Status Date / Time No Known Allergies Allergy Verified 02/24/19 14:36 PMH/Surg Hx/FS Hx/Imm Hx Previously Healthy: Yes Endocrine/Hematology History: Denies: Hx Diabetes Cardiovascular History: Reports: Hx Hypertension, Other Cardiovascular Problems/ Disorders - a fib Denies: Hx Pacemaker/ICD Respiratory History: Reports: Hx Sleep Apnea - not diagnosed Denies: Hx Asthma Comment Only: Other Respiratory Problems/Disorders - SLEEP APNEA Sensory History: Reports: Hx Contacts or Glasses Denies: Hx Hearing Aid Opthamlomology History: Reports: Hx Contacts or Glasses Neurological History: Denies: Other Neuro Impairments/Disorders Psychiatric History: Reports: Hx Anxiety - rare Denies: Hx Panic Disorder - Cancer History Cancer Type, Location and Year: NEW DIAGNOSIS BASE TONGUE - Surgical History Surgery Procedure, Year, and Place: tonsillectomy,as a child. right ankle surgery, 20 yrs ago, plate and pins,. eye surgery as a child Hx Anesthesia Reactions: No Infectious Disease History: No Infectious Disease History: Denies: Hx of Known/Suspected MRSA, Traveled Outside the [place] in Last 30 Days - Family History Known Family History: Negative: Diabetes - Social History Alcohol Use: None Hx Substance Use: No Substance Use Type: Reports: None Hx Tobacco Use: No Smoking Status (MU): Never Smoked Tobacco Review of Systems - ROS Summary Review of Systems Summary: Home Medications Medication Instructions Recorded Confirmed Type Apixaban* [Eliquis*] 5 mg G TUBE BID 12/14/18 02/24/19 History Gabapentin [Gabapentin 250 mg/5ml] 18 ml G TUBE TID 12/14/18 02/24/19 History Metoprolol Tartrate TAB* 12.5 mg G TUBE BID 12/14/18 02/24/19 History [Lopressor TAB*] Omeprazole 40 mg G TUBE DAILY 12/14/18 02/24/19 History Diltiazem TAB* [Cardizem 60 MG 60 mg PEG TUBE TID 02/24/19 02/24/19 History Tab*] Lactose-Reduced Food/Fiber [Jevity 237 ml PEG TUBE SEE INSTRUCTIONS 02/24/1912/06 History 1.2 Ravindra Liquid] Magnesium CITRATE* [Citrate of 15 ml PO DAILY 02/24/19 02/24/19 History Magnesia*] Digoxin TAB* [Lanoxin TAB*] 0.125 mg PO Q48H 30 Days tab 03/01/19 Rx Metoprolol Tartrate TAB* 25 mg PO BID 30 Days tab 03/01/19 Rx [Lopressor TAB*] Negative: Fever Eyes: Negative Neurological: Other - dizziness, lightheadedness Negative: Headache All Other Systems Reviewed And Are Negative: Yes Physical Exam - Summary Physical Exam Summary: General: Well-developed, Well-nourished elderly male. No acute distress. HEENT: Normocephalic, Atraumatic. Eyes: Conjuctiva normal, PERRL. Ears: TMs within normal limits. Nares: (-) discharge, (-) erythema. Oropharynx: Clear, mucous membranes moist, (-) exudates. Neck: Soft, FROM, (-) lymphadenopathy, (-) thyromegaly, (-) JVD. Cardiovascular: Irregularly irregular rate, (-) murmur. Lungs: Clear to auscultation bilaterally (-) wheezes, (-) rales, (-) rhonchi. Abdomen: Soft, non-tender, non-distended, (-) organomegaly, normal bowel sounds. Back: (-) CVA tenderness Extremities: No edema. Skin: Warm, dry, (-) rash. Neuro: Alert and oriented x3, no focal deficits. Psychiatric: Mood normal, affect normal. Triage Information Reviewed: Yes Vital Signs On Initial Exam: Initial Vitals Temp Pulse Resp BP Pulse Ox 97.9 F 73 16 107/69 98 03/16/19 15:34 03/16/19 15:34 03/16/19 15:34 03/16/19 15:34 03/16/19 15:34 Vital Signs Reviewed: Yes Procedures - Sedation Patient Received Moderate/Deep Sedation with Procedure: No Diagnostics - Vital Signs Vital Signs Temp Pulse Resp BP Pulse Ox 03/16/19 17:57 97.7 F 81 16 104/59 100 03/16/19 15:34 97.9 F 73 16 107/69 98 - Laboratory Lab Results: Lab Results 03/16/19 03/16/19 Range/Units 18:47 18:47 WBC 6.1 (3.5-10.8) 10^3/uL RBC 3.56 L (4.18-5.48) 10^6 /uL Hgb 11.3 L (14.0-18.0) g/dL Hct 34 L (42-52) % MCV 95 H (80-94) fL MCH 32 H (27-31) pg MCHC 34 (31-36) g/dL RDW 16 H (10-15) % Plt Count 289 (150-450) 10^3/uL MPV 8.1 (7.4-10.4) fL Neut % (Auto) 80.8 % Lymph % (Auto) 4.5 % [place] % (Auto) 8.9 % Eos % (Auto) 4.9 % Baso % (Auto) 0.9 % Absolute Neuts (auto) 4.9 (1.5-7.7) 10^3/ul Absolute Lymphs (auto) 0.3 L (1.0-4.8) 10^3/ul Absolute Monos (auto) 0.5 (0-0.8) 10^3/ul Absolute Eos (auto) 0.3 (0-0.6) 10^3/ul Absolute Basos (auto) 0.1 (0-0.2) 10^3/ul Absolute Nucleated RBC 0.0 10^3/ul Nucleated RBC % 0.3 Sodium 131 L (135-145) mmol/L Potassium 4.6 (3.5-5.0) mmol/L Chloride 93 L (101-111) mmol/L Carbon Dioxide 29 (22-32) mmol/L Anion Gap 9 (2-11) mmol/L BUN 35 H (6-24) mg/dL Creatinine 1.51 H (0.67-1.17) mg/dL Est GFR ( Amer) 56.1 (>60) Est GFR (Non-Af Amer) 46.3 (>60) BUN/Creatinine Ratio 23.2 H (8-20) Glucose 101 H (70-100) mg/dL Calcium 9.8 (8.6-10.3) mg/dL Magnesium 2.2 (1.9-2.7) mg/dL Total Bilirubin 0.50 (0.2-1.0) mg/dL AST 16 (13-39) U/L ALT 21 (7-52) U/L Alkaline Phosphatase 107 H (34-104) U/L Total Protein 7.6 (6.4-8.9) g/dL Albumin 4.1 (3.2-5.2) g/dL Globulin 3.5 (2-4) g/dL Albumin/Globulin Ratio 1.2 (1-3) Result Diagrams: 03/16/19 18:47 03/16/19 18:47 Lab Statement: Any lab studies that have been ordered have been reviewed, and results considered in the medical decision making process. Re-Evaluation - Re-Evaluation 1st re-eval Re-Evaluation Time: 22:32 Change: Improved Comment: I have discussed results with the patient and his dizziness is resolved. Discussed symptoms that warrant immediate return to ED. Dizzy Course/Dx - Course Course Of Treatment: Pt is a 69 y/o M presenting to the ED with a chief complaint of dizziness. He describes it as lightheadedness, and states it feels like hes swimming. He notes hx of AFib and HTN, and that he recently finished chemotherapy/radiation. He denies fever, changes in vision, or headache. On exam, pt is an elderly male with an irregularly irregular HR. Lab results show RBC of 3.56, Hgb of 11.3, Hct of 34, Sodium of 131, Chloride of 93, BUN/Creatinine ratio of 23.2, and Alkaline Phosphate of 107. In the ED, pt will be given fluids to rehydrate. As of 2231, I have discussed results with the patient and his dizziness is resolved. Discussed symptoms that warrant immediate return to ED. Pt's dx will be dizziness. - Diagnoses Provider Diagnoses: Dizziness Discharge ED - Sign-Out/Discharge Documenting (check all that apply): Patient Departure - Discharge Plan Condition: Stable Disposition: HOME Patient Education Materials: Dizziness (ED) Referrals: Juan Hilliard MD [Primary Care Provider] - Additional Instructions: Please follow up with your primary care physician within three days. Please return to ED for any new or worsening symptoms. - Billing Disposition and Condition Condition: STABLE Disposition: Home - Attestation Statements Document Initiated by Scribe: Yes Documenting Scribe: Roseanna Saunders Provider For Whom Genna is Documenting (Include Credential): Amita Herrera MD. Scribe Attestation: Roseanna Roland, scribed for Amita Herrera MD. on 03/17/19 at 0502. Scribe Documentation Reviewed: Yes Provider Attestation: The documentation as recorded by the scribeRoseanna accurately reflects the service I personally performed and the decisions made by , Amita Herrera MD. Status of Scribe Document: Viewed
[2019-03-16] MEDS ORDERED: NS 0.9% 1000 ML** 1,000 ML IV ONE (20:03)
[2019-03-16 23:01] VITALS: BP 147/94
== END 2019-03-16 23:06 | disposition home or self-care (01) ==
LOC: ED 15:31
DX: R42 Dizziness and giddiness (principal); R26.81 Unsteadiness on feet; C01 Malignant neoplasm of base of tongue; I10 Essential (primary) hypertension; I48.91 Unspecified atrial fibrillation; Z79.01 Long term (current) use of anticoagulants
CPT/HCPCS: 36415; 80053; 83735; 85025; 87040; 96360; 99283